=== PATIENT | male | born 1930 | race Hispanic/Latino ===

== ENCOUNTER 2017-04-08 18:29 | Emergency (ER) | payer MEDICARE, BC ==
[2017-04-08 18:55] LABS: #Basophils 0.1 thou/uL (0.0-0.2); #Eosinphils 0.1 thou/uL (0.0-0.7); #Lymphocytes 2.7 thou/uL (1.20-3.40); #Monocytes 0.6 thou/uL (0.11-0.59); #Neutrophils 3.4 thou/uL (1.40-6.50); %Basophils 0.9 % (0.0-1.0); %Eosinophils 1.7 % (0.0-10.0); %Lymphocytes 39.2 % (21.0-51.0); %Monocytes 8.3 % (0.0-10.0); %Neutrophils 49.9 % (42.0-75.0); Mean Corpuscular HGB CONC 33.9 g/dL (32.0-36.0); Mean Corpuscular Hemoglobin 34.6 pg (27.0-31.0); Mean Platelet Volume 6.6 fL (7.4-10.4); Platelet Count 208 thou/uL (130-400); RBC Distribution Width 11.3 % (11.5-14.5); Red Blood Cell (RBC) Count 4.05 mill/uL (4.70-6.10); White Blood Cell (WBC) Count 6.8 thou/uL (4.8-10.8)
[2017-04-08 19:18] LABS: ALT (SGPT) 17 U/L (8-55); AST (SGOT) 23 U/L (5-34); Alkaline Phosphatase 80 U/L (40-150); Anion Gap 13 mmol/L (10-20); BUN (Urea Nitrogen) 16 mg/dL (8.4-25.7); Bilirubin, Total 0.3 mg/dL (0.2-1.2); CK (CPK) 116 U/L (30-200); Calc. Creatinine Clearance 0 mL/min (70-130); Calcium 9.5 mg/dL (7.8-10.44); Carbon Dioxide 29 mmol/L (23-31); Chloride 100 mmol/L (98-107); Estimated GFR-MDRD 89; Globulin 3.6 g/dL (2.4-3.5); Glucose 98 mg/dL (83-110); Potassium 3.5 mmol/L (3.5-5.1); Protein, Total 7.6 g/dL (5.8-8.1); Sodium 138 mmol/L (136-145)
[2017-04-08 19:21] LABS: Troponin I 0.021 ng/mL (< 0.028)
--- NOTE | 2017-04-08 19:25 | RAD ---
CHEST ONE VIEW: 04/08/17 HISTORY: Chest pain and left arm pain. COMPARISON: 06/25/14 STUDY. Heart size is within normal limits. There are postop sternotomy changes. The lungs are clear of infil trates. Postoperative changes of the right shoulder are noted. IMPRESSION: No active intrathoracic disease. POS: [facility]
--- NOTE | 2017-05-09 18:41 | EKG ---
Test Reason : Blood Pressure : / mmHG Vent. Rate : 059 BPM Atrial Rate : 059 BPM P-R Int : 154 ms QRS Dur : 092 ms QT Int : 406 ms P-R-T Axes : 020 000 083 degrees QTc Int : 401 ms Sinus bradycardia with marked sinus arrhythmia Inferior infarct , age undetermined Abnormal ECG Confirmed by BRETT ANDREA, VANESSA ([id number]), film and video editor FANNIE FOWLER ([id number]) on 05/09/2017 6:40:18 PM Referred By: Confirmed By:VANESSA WEST MD
== END 2017-04-08 19:51 | disposition home or self-care (01) ==
LOC: ERS 18:29
DX: M54.12 Radiculopathy, cervical region (principal); I25.2 Old myocardial infarction; E78.5 Hyperlipidemia, unspecified; I10 Essential (primary) hypertension; Z86.73 Personal history of transient ischemic attack (TIA), and cerebral infarction without residual deficits; Z87.891 Personal history of nicotine dependence; Z85.46 Personal history of malignant neoplasm of prostate; Z79.899 Other long term (current) drug therapy; Z79.82 Long term (current) use of aspirin
CPT/HCPCS: 71010; 80053; 82550; 82553; 84484; 85025; 93005; 94760

== ENCOUNTER 2017-06-12 16:35 | Observation (INO) | payer MEDICARE, BC ==
[2017-06-12 16:59] LABS: #Basophils 0.1 thou/uL (0.0-0.2); #Eosinphils 0.2 thou/uL (0.0-0.7); #Lymphocytes 2.3 thou/uL (1.20-3.40); #Monocytes 0.7 thou/uL (0.11-0.59); #Neutrophils 3.4 thou/uL (1.40-6.50); %Basophils 0.8 % (0.0-1.0); %Eosinophils 2.3 % (0.0-10.0); %Lymphocytes 34.6 % (21.0-51.0); %Monocytes 10.2 % (0.0-10.0); %Neutrophils 52.1 % (42.0-75.0); Mean Corpuscular HGB CONC 34.4 g/dL (32.0-36.0); Mean Corpuscular Hemoglobin 34.4 pg (27.0-31.0); Mean Platelet Volume 6.5 fL (7.4-10.4); Platelet Count 222 thou/uL (130-400); RBC Distribution Width 11.5 % (11.5-14.5); Red Blood Cell (RBC) Count 4.07 mill/uL (4.70-6.10); White Blood Cell (WBC) Count 6.6 thou/uL (4.8-10.8)
[2017-06-12] MEDS ORDERED: Nitroglycerin 2% Ointment 1 INCH/1 GM Packet ONE (17:04)
[2017-06-12 17:18] LABS: ALT (SGPT) 15 U/L (8-55); AST (SGOT) 20 U/L (5-34); Albumin 3.8 g/dL (3.4-4.8); Alkaline Phosphatase 88 U/L (40-150); Anion Gap 10 mmol/L (10-20); BUN (Urea Nitrogen) 16 mg/dL (8.4-25.7); Bilirubin, Total 0.4 mg/dL (0.2-1.2); CK (CPK) 135 U/L (30-200); Calc. Creatinine Clearance 0 mL/min (70-130); Carbon Dioxide 28 mmol/L (23-31); Chloride 103 mmol/L (98-107); Estimated GFR-MDRD 73; Globulin 3.4 g/dL (2.4-3.5); Glucose 108 mg/dL (83-110); Lipase 26 U/L (8-78); Potassium 4.1 mmol/L (3.5-5.1); Protein, Total 7.2 g/dL (5.8-8.1); Sodium 137 mmol/L (136-145)
[2017-06-12 17:21] LABS: CKMB 4.1 ng/mL (0-6.6); Troponin I 0.012 ng/mL (< 0.028)
--- NOTE | 2017-06-12 17:43 | RAD ---
PORTABLE FRONTAL CHEST RADIOGRAPH 06/12/17 COMPARISON: 04/08/17 HISTORY: Intermittent substernal chest pain. FINDINGS: The patient is status post midline sternotomy/CABG. There is no pneumothorax or pleural fluid. No focal consolidation or alveolar edema. IMPRESSION: Stable appearance of the chest - no acute findings. POS: [facility]
[2017-06-12] MEDS ORDERED: Acetaminophen 325 MG TAB PO PRN (19:05)
--- NOTE | 2017-06-12 19:05 | PDOC.EVN ---
Event Note - Event Note Event Note: [id number] H&P DICTATED 1. Chest pain 2. HTN 3. HPL 4. H/O CAD plan see orders
[2017-06-12] MEDS ORDERED: Sodium Chloride 0.9% 1,000 ML IV SCH (19:15)
[2017-06-12 20:28] LABS: Troponin I Less than 0.010 ng/mL (< 0.028)
[2017-06-12 21:10] VITALS: BMI 24.3
[2017-06-12] MEDS: Nitroglycerin 2% Ointment 1 INCH/1 GM Packet TOP SCH (22:32)
[2017-06-12 23:34] LABS: Troponin I 0.013 ng/mL (< 0.028)
--- NOTE | 2017-06-13 00:31 | HP ---
DATE OF ADMISSION: 06/12/2017 CHIEF COMPLAINT: Chest pain. HISTORY OF PRESENT ILLNESS: The patient is an 86-year-old male with past medical history of hypertension, hyperlipidemia, coronary artery disease, now came to the ER complaining of chest pain. The patient is having chest pain on and off for past several months, but did not see any asic verification engineer. The patient in the past seen by a asic verification engineer, but not seeing anyone recently. Chest pain persisted today, so he came to ER. The chest pain radiated to the left shoulder and also to the left scapular region and to the neck, moderate in intensity, spasm kind of pain. Currently, pain resolved. Denies any fever, denies any chills, denies any sweating, denies nausea, denies vomiting. Denies palpitations with the chest pain. PAST MEDICAL HISTORY: As per HPI. PAST SURGICAL HISTORY: CABG 20 years ago. SOCIAL HISTORY: Denies smoking, denies alcohol, denies any drugs. FAMILY HISTORY: Denies any heart problems. MEDICATIONS: Reviewed. REVIEW OF SYSTEMS: Constitutional: Denies any fever, denies any chills. Eyes : Denies any vision problems. Ears: Denies any hearing loss. Neck: Denies any neck pain. Cardiovascular system: Positive for chest pain. Respiratory system: Denies any cough. Denies sputum production. Gastrointestinal: Denies nausea, vomiting. Genitourinary: Denies dysuria. Musculoskeletal: Denies any joint deformities. All other review of systems are reviewed and are negative. PHYSICAL EXAMINATION: CONSTITUTIONAL/VITAL SIGNS: At the time of H&P performed, blood pressure is 134 /69, temp afebrile, pulse ox 95%, heart rate 54 GENERAL APPEARANCE: The patient appears comfortable. HEENT: Pupils are equal, round, and reactive to light. Anterior nares patent. Nose normal. Ears normal. Teeth intact. Tongue is moist. NECK: Supple, no JVD. CARDIOVASCULAR SYSTEM: S1, S2 present. Regular rate and rhythm. No murmurs, no rubs, no gallops. RESPIRATORY SYSTEM: No wheezing, no rhonchi. Breath sounds bilaterally. GASTROINTESTINAL: Abdomen is soft, nontender, no guarding, no organomegaly, no masses felt. MUSCULOSKELETAL: No edema. CRANIAL NERVE SYSTEM: Cranial nerves intact. Follows command. Strength intact , sensory intact. PSYCHIATRIC: Mood is appropriate at this time. INTEGUMENTARY: No obvious rash seen. LABORATORY DATA: At the time of H&P performed, white count 6.7, hemoglobin 14, platelet count is 222. BMP showed sodium 137, potassium 4.1, chloride 103, CO2 of 28, BUN 16, creatinine 0.98. BNP 138.8. ASSESSMENT AND PLAN: The patient is an 86-year-old male. 1. Chest pain, need to rule out cardiac etiology. EKG showed sinus bradycardia with some PACs. Plan to monitor the patient closely. Plan to check serial cardiac enzymes. Plan to check 2D echo. Plan to consult Cardiology to evaluate the patient. Plan to keep the patient n.p.o. after midnight. 2. History of hypertension. Monitor blood pressures. Continue home blood pressure medications. 3. History of hyperlipidemia. Continue statin. 4. History of coronary artery disease. Continue aspirin. The case was discussed in detail with the patient and patient's daughter also. KRYSTINA
[2017-06-13 05:08] LABS: Cardiac Risk 4.5 (Less than 4.5)
[2017-06-13 05:10] LABS: Troponin I 0.012 ng/mL (< 0.028)
[2017-06-13] MEDS: Nitroglycerin 2% Ointment 1 INCH/1 GM Packet TOP SCH (05:15)
[2017-06-13 07:53] VITALS: BP 137/63; TEMP 98.3
[2017-06-13] MEDS ORDERED: Aspirin 325 MG TAB PO SCH (08:00)
[2017-06-13] MEDS ORDERED: Lisinopril 5 MG TAB PO SCH (09:00)
[2017-06-13] MEDS ORDERED: Clopidogrel Bisulfate 75 MG TAB PO SCH (09:00)
--- NOTE | 2017-06-13 09:28 | CON ---
DATE OF CONSULTATION: 06/13/2017 CARDIOLOGY CONSULTATION INDICATION FOR CONSULTATION: An 86-year-old patient with history of known coronary artery disease, melissa farah post bypass surgery with complaints of chest discomfort. HISTORY OF PRESENT ILLNESS: This is a very unfortunate now 86-year-old patient who has had bypass griffith rgery several years ago. More than 20 years ago, he had bypass surgery with a MONTES DE OCA to left anterior descending artery, saphenous vein graft to the right coronary artery, diagonal of first obtuse margin al branch of left circumflex. In 2004, he had cardiac catheterization which showed severe upper mattaponi ves kalyani disease. He again had repeat cardiac catheterization in 2014, which again showed a severe three- vessel coronary artery disease of the upper mattaponi vessels, but he had patent saphenous vein graft. He had a MONTES DE OCA to left anterior descending artery which also had remained patent. He has been doing relativ dave well, but has not been followed up by Cardiology. He had negative stress test last year and card iac catheterization in 2014 which showed that his grafts had some mild disease, but no flow-limited d isease was noted. At this time, he has been complaining of various types of chest pain in various ar eas of the chest. He presented to the hospital. He actually stays he is pretty active and does not get chest pain while he is active. He said he just kind of those ignores it and does not have any si gnificant problems. When he is resting and sitting at home, he occasionally has some chest discomfor t. He does take a nitroglycerin which did not relieve his discomfort. Sometimes, he will take Aleve at night and this does resolve some of his pain. His EKG is unremarkable for any acute changes. 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 His cardiac enzym es are negative for myocardial infarction. At this time, he is stable. He denies any symptoms of ch est pain at this time. He is very pleasant. He is awake and oriented and wondering when he can eat and when he can go home. He has had no other significant problems. His vital signs have remained st able and he has no significant complaints. He does have a history of hypertension, hypercholesterole rosio, but no diabetes. He stopped smoking about 45 years ago. FAMILY HISTORY: Unremarkable for any early heart disease. PAST MEDICAL HISTORY: Significant for coronary artery disease as well as bypass surgery, history of hypertension, hypercholesterolemia, has had a history of prostate cancer and CVA in the past. He had a history of carotid artery disease. ALLERGIES: None. MEDICATIONS: Please refer to his list of medications already dictated by the previous history and ph ysical. These have been reviewed. At this time, he is on aspirin, Tylenol, atorvastatin, Plavix, li sinopril, metoprolol, nitroglycerin as needed, and Protonix. REVIEW OF SYSTEMS: A 12 point review of systems unremarkable which was noted in the history of prese nt illness. He still remains relatively active. 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 PHYSICAL EXAMINATION: GENERAL: Reveals a well-developed and well-nourished gentleman who is in no acute distress. He is a lert and oriented. VITAL SIGNS: Stable. Blood pressure is 137/63, heart rate is 57 and regular, respiratory rate is 18 . He is afebrile. O2 saturations are 94%. GENERAL: Otherwise reveals a well-developed and well-nourished gentleman, in no acute distress. HEENT: Shows head to be normocephalic, atraumatic. Carotid pulses are present. There were no bruit s. I cannot hear any significant bruits in the carotids. CHEST: Clear to auscultation. CARDIOVASCULAR: Exam reveals a regular rate and rhythm with normal S1, S2. There is no S3, S4. The re were no significant murmurs, heaves, thrills, bruits or rubs noted. CHEST: Has a well-healed midline surgical incision after median sternotomy. ABDOMEN: Soft and nontender. Positive bowel sounds are present. EXTREMITIES: Show no clubbing, cyanosis or edema. Pedal pulses are present. SKIN: Warm and dry. NEUROLOGIC: Patient is appropriate with mood and affect. He has normal strength and tone. IMAGING DATA: Atypical chest discomfort which most likely is musculoskeletal. He has no significant EKG changes. Enzymes are negative. He had a negative stress test last year. He had a cardiac cath eterization in 2014, which did not show any acute changes. Cardiac catheterization showed all 3 reed ve arteries were completely occluded with saphenous vein graft to a diagonal branch and obtuse margin al branch into the right coronary artery with only a 50% stenosis in the right coronary artery graft and distal stenosis in the upper mattaponi right coronary, about 50% in the posterior lateral branch with retr ograde filling from the diagonal branch to the distal right coronary artery with a patent MONTES DE OCA to the left anterior descending artery and a well preserved left ventricular systolic function. At this ti me, I believe he is stable. I would continue his medications at home. He can follow up as on outpat ient basis. I did suggest to him at least to see field health officer at least once a year. He has been fol lowed previously by Brock. We will be more than happy to continue to follow the patient if he will be compliant with his followups. IMPRESSION: 1. Coronary artery disease, which appears to be stable. 2. Status post bypass surgery, which also appears to be stable. 3. Hypertension, which is stable. 4. Hypercholesterolemia, which is stable. 5. Atypical chest discomfort which most likely is musculoskeletal.
--- NOTE | 2017-06-13 13:46 | DIS ---
DATE OF ADMISSION: 06/12/2017 DATE OF DISCHARGE: 06/13/2017 CONDITION AT THE TIME OF DISCHARGE: Stable and improved. DISCHARGE DISPOSITION: Home. PRIMARY CARE PHYSICIAN: Dr. Corrigan. PRIMARY ASSOCIATE MATERIAL HANDLER: Dr. Stephenson. DISCHARGE DIAGNOSES: 1. Chest pain, noncardiac, resolved. 2. History of coronary artery disease. 3. Hypertension. 4. Dyslipidemia. 5. History of prostate cancer. 6. History of coronary artery bypass grafting. DISCHARGE MEDICATIONS: Remain the same as admission medication. Please consult H&P dictated yesterd ay by my colleagues. CONSULTATIONS: Cardiology, Dr. Stephenson. PROCEDURES DONE IN THE HOSPITAL: Chest x-ray, which is unremarkable. HISTORY OF PRESENTING ILLNESS: Mr. Pacheco is an 86-year-old very pleasant male with history of coronary artery disease, who came into the emergency room with complaints of chest pain starting i n the left side going to his left shoulder, neck ,and his arm. He was hemodynamically stable upon pr esentation. His cardiac enzymes were negative. EKG was unremarkable. He did have some sinus bradyc ardia on the EKG with some PACs. He was admitted for further evaluation and ACS rule out. Please se e admission history and physical dictated by Dr. Giraldo. HOSPITAL COURSE: The patient remained hemodynamically stable and asymptomatic throughout the rest of his hospitalization. His cardiac enzymes were trended and were negative x4. His lipid panel was ch ecked and was unremarkable. His vital signs remained stable. He was restarted on his home medicatio ns, which he tolerated very well. He was seen by dog walker, Dr. Stephenson, who has seen him in the past. At this time, her recommendatio ns were to continue with the current cardiac medication and follow up with her as an outpatient. The patient was instructed about this and is more than happy to follow up. He tells me that he is still working and is staying very active. He does not drink or smoke and is very conscious about what he eats. He actually appears much younger than his stated age. At the time of discharge, he is hemodynamically stable. He has been seen and examined by myself. PHYSICAL EXAMINATION: VITAL SIGNS: Temperature 98.3, pulse of 57, respirations 18, saturating 94% on room air, and blood p ressure 137/63. GENERAL: No acute distress, awake, alert, oriented x3. CHEST: Clear to auscultation without any wheezing, rales, or rhonchi. Rate and rhythm is regular wi thout any murmur, rubs, or gallops. EXTREMITIES: Free of any cyanosis, clubbing, or edema. LABORATORY DATA: Troponin 0.012, then 0.010, then 0.013, and repeat troponin 0.012. BNP 138, trigly ceride 106, cholesterol 188, LDL 125, and HDL 42. Discharge plan was discussed with the patient and medications were reconciled. He verbalized underst anding. All questions were answered.
--- NOTE | 2017-06-13 15:37 | EKG ---
Test Reason : Blood Pressure : / mmHG Vent. Rate : 059 BPM Atrial Rate : 059 BPM P-R Int : 152 ms QRS Dur : 092 ms QT Int : 410 ms P-R-T Axes : 045 012 071 degrees QTc Int : 405 ms Sinus bradycardia with marked sinus arrhythmia Inferior infarct , age undetermined Abnormal ECG Confirmed by FELIPE ANDREA, LEANNE Peña ([id number]), editorial writer CHETAN LAINEZ ([id number]) on 06/13/2017 3:37:33 PM Referred By: Confirmed By:LEANNE WANG MD
[2017-06-13] MEDS ORDERED: Atorvastatin Calcium 20 MG TAB PO SCH (21:00)
== END 2017-06-13 10:49 | disposition home or self-care (01) ==
LOC: ERS 16:35 → 2SW 18:00
PROVIDERS: ADMIT Internal Medicine; ATTEND Internal Medicine
DX: R07.89 Other chest pain (principal); I25.10 Atherosclerotic heart disease of native coronary artery without angina pectoris; I10 Essential (primary) hypertension; E78.5 Hyperlipidemia, unspecified; Z79.02 Long term (current) use of antithrombotics/antiplatelets; Z79.82 Long term (current) use of aspirin; Z79.899 Other long term (current) drug therapy; Z95.1 Presence of aortocoronary bypass graft; Z85.46 Personal history of malignant neoplasm of prostate; Z86.73 Personal history of transient ischemic attack (TIA), and cerebral infarction without residual deficits
CPT/HCPCS: 71045; 80053; 80061; 82550; 82553; 83690; 83880; 84484 ×3; 85025; 93005; 93306; 94760 ×3; 99285; G0378; 36415

== ENCOUNTER 2018-02-13 10:32 | Observation (INO) | payer MEDICARE, BC ==
[2018-02-13 10:51] LABS: #Basophils 0.1 thou/uL (0.0-0.2); #Eosinphils 0.1 thou/uL (0.0-0.7); #Lymphocytes 2.3 thou/uL (1.20-3.40); #Monocytes 0.4 thou/uL (0.11-0.59); #Neutrophils 2.9 thou/uL (1.40-6.50); %Basophils 1.3 % (0.0-1.0); %Eosinophils 1.2 % (0.0-10.0); %Lymphocytes 39.4 % (21.0-51.0); %Monocytes 7.6 % (0.0-10.0); %Neutrophils 50.5 % (42.0-75.0); Hemoglobin 13.9 g/dL (14.0-18.0); Mean Corpuscular HGB CONC 33.1 g/dL (32.0-36.0); Platelet Count 210 thou/uL (130-400); RBC Distribution Width 11.5 % (11.5-14.5); White Blood Cell (WBC) Count 5.7 thou/uL (4.8-10.8)
[2018-02-13 11:23] LABS: ALT (SGPT) 14 U/L (8-55); AST (SGOT) 21 U/L (5-34); Albumin 3.9 g/dL (3.4-4.8); Alkaline Phosphatase 80 U/L (40-150); Anion Gap 13 mmol/L (10-20); BUN (Urea Nitrogen) 15 mg/dL (8.4-25.7); Bilirubin, Total 0.5 mg/dL (0.2-1.2); CK (CPK) 133 U/L (30-200); Calc. Creatinine Clearance 0 mL/min (70-130); Carbon Dioxide 25 mmol/L (23-31); Chloride 105 mmol/L (98-107); Estimated GFR-MDRD Greater than 90; Globulin 3.3 g/dL (2.4-3.5); Glucose 118 mg/dL (83-110); Lipase 16 U/L (8-78); Potassium 3.8 mmol/L (3.5-5.1); Protein, Total 7.2 g/dL (5.8-8.1); Sodium 139 mmol/L (136-145)
[2018-02-13 11:26] LABS: CKMB 4.5 ng/mL (0-6.6); Troponin I Less than 0.010 ng/mL (< 0.028)
--- NOTE | 2018-02-13 13:09 | RAD ---
PORTABLE CHEST: HISTORY: Chest pain. COMPARISON: 06/12/2017 study. FINDINGS: Heart size is within normal limits. There are postop sternotomy changes. The lungs are clear of any infiltrative process. There are no signs of failure. IMPRESSION: No active intrathoracic disease. POS: [facility]
[2018-02-13 14:32] LABS: Troponin I Less than 0.010 ng/mL (< 0.028)
[2018-02-13 15:23] VITALS: BMI 24.7
[2018-02-13] MEDS ORDERED: Ondansetron ODT 4 MG TAB PO PRN (15:34)
[2018-02-13] MEDS ORDERED: Acetaminophen 325 MG TAB PO PRN (15:34)
[2018-02-13] MEDS ORDERED: Ondansetron PF 4 MG/2 ML Vial IVP PRN (15:34)
[2018-02-13 17:06] LABS: Troponin I Less than 0.010 ng/mL (< 0.028)
--- NOTE | 2018-02-13 17:50 | HP ---
DATE OF ADMISSION: 02/13/2018 PRIMARY CARE PHYSICIAN: Tyler Corrigan M.D. PRIMARY SENIOR C DEVELOPER: Davida Stephenson M.D. CHIEF COMPLAINT: Chest pain. HISTORY OF PRESENT ILLNESS: Mr. Pacheco is a pleasant 87-year-old male who has a past medical history of hypertension, hyperlipidemia and coronary artery disease with a history of CABG 21 years ago and C VA 5 years ago, came to the ER today with some complaints of chest pain that has been going on for e last 3-4 days. He states the chest pain comes and goes on the left side of the chest; however, whe n he feels that he strains or when he twists his upper body, the pain radiates to the right side of h is chest. He states he has been doing more yard work around the house and also chores around the [facility] [place] when he first noticed pain about 3-4 days ago. He denies any shortness of breath, abdominal pain, nausea, vomiting or diarrhea. He denies any fever or chills or cough. He states usually the pain l asts throughout the day before bedtime, he will take an aspirin and some Aleve and his pain resolves to the point where he can get a good night's sleep. He reported 5/10 chest pain in the ER; however, when he was seen and examined by myself on the floor, he had no complaints of chest pain. He had muc h similar complaints back in June of this year, which he was admitted for chest pain, rule out, he u nderwent echocardiogram and stress test which were found to be unremarkable and was later discharged home to follow up with his PCP and extra gang supervisor. Upon arrival to the ER, his EKG showed sinus bradyc ardia with a rate of 53 and T-wave inversion in leads V1 and 2, Q-waves significant in lead 3 with AV F. These were findings seen on previous EKG, and he denies any further symptoms at this time. He wi ll be admitted under observation status for chest pain rule out. PAST MEDICAL HISTORY: Coronary artery disease, myocardial infarction, hyperlipidemia, hypertension, prostate cancer, CVA. PAST SURGICAL HISTORY: CABG 21 years ago, appendectomy. SOCIAL HISTORY: Denies smoking, alcohol or drug use. FAMILY HISTORY: Denies any family history of heart problems. HOME MEDICATIONS: 1. Aspirin 325 mg daily. 2. Simvastatin 40 mg at bedtime. 3. Clopidogrel 75 mg daily. 4. Metoprolol succinate 12.5 mg daily. 5. Lisinopril 5 mg oral daily. REVIEW OF SYSTEMS: CONSTITUTIONAL: Denies fever or chills. EYES: Denies any eye pain or vision changes. EARS: Denies hearing loss, ringing or muffled sound. NECK: Denies any neck pain, swelling. CARDIOVASCULAR: Positive for chest pain, no palpitations. RESPIRATORY: Denies cough, shortness of breath or wheezing. GASTROINTESTINAL: Denies nausea, vomiting, or abdominal pain. GENITOURINARY: Denies dysuria, frequency, urgency, or hematuria. MUSCULOSKELETAL: Denies any joint deformities, muscle pain or weakness. All other review of systems reviewed and are negative. ALLERGIES: No known drug allergies. PHYSICAL EXAMINATION: VITAL SIGNS: BP 165/76, pulse 48, respirations 16, temperature 97.7 degrees Fahrenheit, O2 saturatio ns 100% on room air. GENERAL APPEARANCE: Patient is awake, alert, and oriented x3 in no acute distress noted. HEENT: Pupils equal, round, and reactive to light. Extraocular muscles intact. Anterior nares peoples nt. No obstruction noted. Ears, normal hearing to conversation. Teeth intact. Moist mucous membra sammy. NECK: Supple, no JVD, no bruit. CARDIOVASCULAR: Positive S1, S2. Bradycardic on the monitor, normal rhythm. No murmurs, no rubs, n o gallops noted. RESPIRATORY: No wheezes, no rhonchi. Clear to auscultation bilaterally. GASTROINTESTINAL: Soft, nontender, nondistended, no guarding, no tenderness. MUSCULOSKELETAL: No edema. Reproducible chest pain on the left. Moves all extremities equally. St rength is 5+ bilaterally both upper and lower extremities. NEUROLOGIC: Cranial nerves II-XII intact. Follows commands. No focal deficit noted. Strength 5+ b ilaterally. Sensation is intact. PSYCHIATRIC: Normal mood and affect. SKIN: No rashes, no lesions, no bruising. LABORATORY DATA: WBC 5.7, RBC 4.1, hemoglobin 13.9, platelet 210. Sodium 139, potassium 3.8, creati nine 0.78, GFR greater than 90, glucose 118, AST 21, ALT 14. Troponin less than 0.010 x2. Lipase 16 . DIAGNOSTIC IMAGING: Chest x-ray showed no acute intrathoracic disease. ASSESSMENT AND PLAN: The patient is an 88-year-old male. 1. Chest pain, we will rule out cardiac etiology. EKG shows sinus bradycardia with T-wave inversion s and significant Q-waves; however, this was seen on previous EKG back in June, we will monitor the patient closely. Continue home medications including aspirin, Plavix, metoprolol, lisinopril, and Li pitor. We will check a stress test and echocardiogram. Pending workup results. May consult Cardiol ogy for further evaluation. 2. History of hypertension, monitor vital signs closely. Continue home blood pressure medications. 3. History of hyperlipidemia. Continue on statin therapy at this time. 4. History of coronary artery disease, continue aspirin, Plavix, refer to #1. 5. Gastrointestinal prophylaxis with Protonix. DISPOSITION AND PLAN: Pending patient's progress and workup.
[2018-02-13] MEDS ORDERED: Atorvastatin Calcium 20 MG TAB PO SCH (21:00)
[2018-02-14 05:11] LABS: #Eosinphils 0.1 thou/uL (0.0-0.7); #Lymphocytes 1.7 thou/uL (1.20-3.40); #Monocytes 0.5 thou/uL (0.11-0.59); #Neutrophils 2.8 thou/uL (1.40-6.50); %Basophils 0.4 % (0.0-1.0); %Eosinophils 2.2 % (0.0-10.0); %Lymphocytes 33.4 % (21.0-51.0); %Monocytes 9.7 % (0.0-10.0); %Neutrophils 54.4 % (42.0-75.0); Hemoglobin 13.4 g/dL (14.0-18.0); Mean Corpuscular Hemoglobin 33.7 pg (27.0-31.0); Mean Platelet Volume 7.4 fL (7.4-10.4); Platelet Count 211 thou/uL (130-400); RBC Distribution Width 11.6 % (11.5-14.5); Red Blood Cell (RBC) Count 3.98 mill/uL (4.70-6.10); White Blood Cell (WBC) Count 5.2 thou/uL (4.8-10.8)
[2018-02-14 05:22] LABS: Anion Gap 9 mmol/L (10-20); BUN (Urea Nitrogen) 13 mg/dL (8.4-25.7); Calc. Creatinine Clearance 68 mL/min (70-130); Calcium 8.8 mg/dL (7.8-10.44); Carbon Dioxide 29 mmol/L (23-31); Chloride 105 mmol/L (98-107); Estimated GFR-MDRD Greater than 90; Glucose 92 mg/dL (83-110); Sodium 139 mmol/L (136-145)
[2018-02-14] MEDS ORDERED: Aspirin 325 MG TAB PO SCH (09:00)
[2018-02-14] MEDS ORDERED: Clopidogrel Bisulfate 75 MG TAB PO SCH (09:00)
[2018-02-14] MEDS ORDERED: Lisinopril 5 MG TAB PO SCH (09:00)
[2018-02-14] MEDS ORDERED: ADENOSINE 60 MG/20 ML VIAL ONE (12:53)
[2018-02-14 13:46] VITALS: BP 165/76; TEMP 97.7
--- NOTE | 2018-02-14 14:23 | NM ---
CARDIAC SPECT: HISTORY: An 87-year-old male with chest pain, coronary artery disease, CABG, hypertension, and dyslipidemia. TECHNIQUE: A myocardial perfusion scan was performed using a single-isotope 1-day protocol with Technetium 99m s estamibi. Nine mCi were injected intravenously for the rest exam followed by 30 mCi for the stress s tudy. Pharmacologic stress with adenosine is monitored and interpreted by Gabby Kennedy PA-C. FINDINGS: There is a small fixed defect in the distal anteroseptal wall. No reversible defects are seen. GATED SPECT LVEF: 59%. WALL MOTION EXAM: No significnat wall motion abnormalities are identified. IMPRESSION: No evidence of reversible ischemia. POS: [facility]
--- NOTE | 2018-02-14 17:04 | DIS ---
DATE OF ADMISSION: 02/13/2018 DATE OF DISCHARGE: 02/14/2018 DISCHARGE DIAGNOSES: 1. Chest pain, noncardiac, resolved. 2. Hypertension, stable. 3. History of hyperlipidemia, stable. 4. History of coronary artery disease, stable. CONSULTATIONS: None. PERTINENT LABORATORY DATA: WBC 5.2, RBC 3.98, hemoglobin 13.4, hematocrit 40.7, platelet 211. Sodiu m 139, potassium 4.0, BUN 13, creatinine 0.76, GFR greater than 90, glucose 92, AST 21, ALT 14, alkal ine phosphatase 80, creatine kinase 133, CK-MB 4.5, troponin less than 0.010 x3. Lipase 16. DIAGNOSTIC IMAGING: Portable chest x-ray showed no acute intrathoracic disease. Stress test showed no evidence of reversible ischemia, no significant wall motion abnormalities. Ech ocardiogram showed left ventricular ejection fraction of 50%-55%. HOSPITAL COURSE: Mr. Pacheco was a pleasant 87-year-old male who had presented to the ER with some com plaints of left-sided chest pain. Upon admission, his serial troponins were found to be less than 0. 010 x3. Chest x-ray was unremarkable. He was ultimately brought in for chest pain rule out, he then underwent an echocardiogram which showed an EF of 50%-55%. Stress test showed no wall motion abnorm alities with no evidence of reversible ischemia. During hospital course, vital signs remained stable . His left-sided chest pain resolved with continuing his normal home medications. He was seen and e xamined prior to discharge. He had denied any chest pain, shortness of breath or abdominal pain. Vi genesis signs remained stable, it was determined that his chest pain was noncardiac etiology. He was ins tructed to continue his home medications as directed and follow up with his PCP in 1-2 weeks. He als o indicated that he will follow up with Dr. Stephenson, his school cafeteria cook head, in 2-4 weeks. He was found to be medically stable for discharge home on 02/14/2018. DISCHARGE MEDICATIONS: 1. Aspirin 325 mg oral daily. 2. Simvastatin 40 mg oral at bedtime. 3. Clopidogrel 75 mg oral daily. 4. Metoprolol succinate 12.5 mg oral daily. 5. Lisinopril 5 mg oral daily. FOLLOWUP: The patient was instructed to follow up with his primary care physician, Dr. Richey in 1-2 weeks, he will also follow up with his school cafeteria cook head, Dr. Stephenson, in 2-4 weeks. CONDITION ON DISCHARGE: Stable. DIET: Cardiac diet. ACTIVITY: As tolerated. DISPOSITION: To home on 02/14/2018.
== END 2018-02-14 16:02 | disposition home or self-care (01) ==
LOC: ERS 10:32 → 2SW 13:26
PROVIDERS: ADMIT Internal Medicine Infectious Disease; ATTEND Internal Medicine Infectious Disease
DX: R07.89 Other chest pain (principal); I10 Essential (primary) hypertension; E78.5 Hyperlipidemia, unspecified; I25.10 Atherosclerotic heart disease of native coronary artery without angina pectoris; I25.2 Old myocardial infarction; Z86.73 Personal history of transient ischemic attack (TIA), and cerebral infarction without residual deficits; Z79.82 Long term (current) use of aspirin; Z79.02 Long term (current) use of antithrombotics/antiplatelets; Z79.899 Other long term (current) drug therapy; Z95.1 Presence of aortocoronary bypass graft
CPT/HCPCS: 71045; 78452; 80048; 80053; 82550; 82553; 83690; 84484 ×2; 85025 ×2; 93005; 93017; 93306; 99285; A9500; G0378 ×2; 36415; J0153

== ENCOUNTER 2018-03-18 00:56 | Observation (INO) | payer MEDICARE, BC ==
[2018-03-18] MEDS ORDERED: Nitroglycerin 2% Ointment 1 INCH/1 GM Packet ONE (01:50)
[2018-03-18 02:05] LABS: #Eosinphils 0.2 thou/uL (0.0-0.7); #Lymphocytes 2.1 thou/uL (1.20-3.40); #Monocytes 0.6 thou/uL (0.11-0.59); #Neutrophils 3.3 thou/uL (1.40-6.50); %Basophils 0.5 % (0.0-1.0); %Eosinophils 3.4 % (0.0-10.0); %Lymphocytes 33.6 % (21.0-51.0); %Monocytes 9.7 % (0.0-10.0); %Neutrophils 52.8 % (42.0-75.0); Hemoglobin 13.8 g/dL (14.0-18.0); Mean Corpuscular HGB CONC 34.8 g/dL (32.0-36.0); Mean Corpuscular Hemoglobin 35.2 pg (27.0-31.0); Mean Platelet Volume 7.1 fL (7.4-10.4); Platelet Count 218 thou/uL (130-400); RBC Distribution Width 11.5 % (11.5-14.5); Red Blood Cell (RBC) Count 3.93 mill/uL (4.70-6.10); White Blood Cell (WBC) Count 6.3 thou/uL (4.8-10.8)
[2018-03-18 02:24] LABS: ALT (SGPT) 20 U/L (8-55); AST (SGOT) 39 U/L (5-34); Albumin 3.6 g/dL (3.4-4.8); Alkaline Phosphatase 94 U/L (40-150); Anion Gap 11 mmol/L (10-20); BUN (Urea Nitrogen) 18 mg/dL (8.4-25.7); Bilirubin, Total 0.5 mg/dL (0.2-1.2); Calc. Creatinine Clearance 0 mL/min (70-130); Carbon Dioxide 26 mmol/L (23-31); Chloride 106 mmol/L (98-107); Estimated GFR-MDRD 83; Globulin 3.4 g/dL (2.4-3.5); Glucose 121 mg/dL (83-110); Lipase 24 U/L (8-78); Potassium 3.6 mmol/L (3.5-5.1); Sodium 139 mmol/L (136-145)
[2018-03-18] MEDS ORDERED: Morphine 2 MG/ML SYRINGE ONE (02:35)
[2018-03-18] MEDS ORDERED: Ondansetron PF 4 MG/2 ML Vial ONE (02:36)
[2018-03-18] MEDS ORDERED: Sodium Chloride 0.9% 1,000 ML IV SCH (05:15)
[2018-03-18] MEDS ORDERED: Morphine 4 MG/ML VIAL SLOW IVP PRN (05:15)
[2018-03-18] MEDS ORDERED: Ondansetron PF 4 MG/2 ML Vial IVP PRN (05:16)
[2018-03-18] MEDS ORDERED: Acetaminophen 325 MG TAB PO PRN (05:16)
[2018-03-18] MEDS ORDERED: Ondansetron ODT 4 MG TAB SL PRN (05:16)
[2018-03-18 06:28] VITALS: BMI 24.0
[2018-03-18 06:44] LABS: Troponin I Less than 0.010 ng/mL (< 0.028)
[2018-03-18] MEDS ORDERED: Prevnar 13-Val Conj/PF 0.5 ML SYRINGE IM ONE (06:45)
--- NOTE | 2018-03-18 07:54 | RAD ---
PORTABLE AP CHEST RADIOGRAPH: Date: 11-16-17 History: Left sided chest pain began approximately 1 hour prior to arrival. Comparison: 02-13-18 FINDINGS: Post-surgical changes related to CABG are noted. Cardiac silhouette and pulmonary vasculature are wit hin normal limits. The lungs remain clear. Post-surgical changes are again present involving each kapil ulder. There has been no interval change from prior study. IMPRESSION: Stable chest without evidence of an acute cardiopulmonary process. POS: [facility]
[2018-03-18 10:21] LABS: Troponin I Less than 0.010 ng/mL (< 0.028)
[2018-03-18] MEDS ORDERED: Iopamidol 370 76% 100 ML VIAL ONE (10:51)
[2018-03-18] MEDS ORDERED: HYDROcodone/Acetaminophen 5/325 mg Tablet PO PRN (14:51)
[2018-03-18] MEDS ORDERED: Sodium Chloride 0.9% 500 ML IV SCH (16:00)
[2018-03-18 16:19] VITALS: BP 142/65; TEMP 98.7
--- NOTE | 2018-03-18 18:12 | HP ---
PRIMARY CARE PHYSICIAN: Tyler Corrigan MD CHIEF COMPLAINT: Chest pain located in lower left chest, midaxillary line, woke him up from sleep. HISTORY OF PRESENT ILLNESS: Mr. Pacheco is a pleasant 87-year-old man, who reported to the emergency room this morning after he experienced some severe left lower chest pain, which woke him up from sleep. He denied any cough, any diaphoresis, any fever, or any palpitations. Denied any vomiting. Does report that the pain radiates to his back and his left arm. Denies any relief from anything in particular. Does have history of coronary artery disease, high cholesterol, and hypertension. The patient was admitted recently on 02/13/2018, for a similar complaint. We had an echocardiogram with an LVEF of 50% to 55%, E/A flow reversal suggestive of diastolic dysfunction, mildly dilated left atrium, moderate mitral regurgitation, and mild tricuspid regurgitation. The patient also had a stress test at that time, which showed no significant wall motion abnormalities and no evidence of reversible ischemia. The patient was discharged on 02/14/2018, with noncardiac chest pain. At that time, his troponins x3 were less than 0.010. He was not seen by a arts manager on that visit. Reports this pain today is somewhat similar, but woke him up from his sleep. Does report some tenderness to palpation, left lower rib cage. Based on his risk factors and complaint, the patient was admitted to the observation unit. The patient does have a history of a CABG 21 years ago and a CVA 5 years ago. PAST MEDICAL HISTORY: 1. Coronary artery disease. 2. Myocardial infarction. 3. Hyperlipidemia. 4. Hypertension. 5. Prostate cancer. 6. CVA. PAST SURGICAL HISTORY: 1. CABG 21 years ago. 2. Appendectomy. SOCIAL HISTORY: Denies smoking, alcohol, or drug use. FAMILY HISTORY: Denies any family history of heart problems. HOME MEDICATIONS: Include; 1. Aspirin 325 mg p.o. daily. 2. Plavix 75 mg p.o. daily. 3. Lisinopril 5 mg p.o. daily. 4. Toprol 12.5 mg daily. 5. Simvastatin 40 mg p.o. nightly. ALLERGIES: NONE. REVIEW OF SYSTEMS: CONSTITUTIONAL: The patient denies fevers or chills. He is alert and oriented. EYES: Denies any eye pain or vision changes. ENT: Denies any sore throat, earache, or rhinorrhea. CARDIOVASCULAR: Does report some chest pain, which radiates to the back and to the left arm. Denies any diaphoresis. Denies any palpitations. Denies any dyspnea on exertion. RESPIRATORY: Denies cough. Denies shortness of breath. GASTROINTESTINAL: Denies any abdominal pain, constipation, diarrhea, nausea, or vomiting. GENITOURINARY: Male. Denies any dysuria or hematuria. MUSCULOSKELETAL: Denies fall or injury. Reports some left-sided posterior back pain. Does report some anterior lateral rib pain in lower left side. SKIN: Denies any rash or skin changes. NEUROLOGIC: Denies any headache or any focal, sensory, or motor deficits. HEMOLYMPHATIC: Denies any abnormal blood clotting. PHYSICAL EXAMINATION: CONSTITUTIONAL: The patient is afebrile. The patient appears in no distress. VITAL SIGNS: Temperature is 97.8, pulse is 55, respirations are 18, blood pressure is 150/67, and the patient has 94% oxygen saturation on room air. HEAD: Atraumatic and normocephalic. EYES: Eyelids are normal to inspection. Pupils are equally round and reactive to light. Extraocular muscles are intact. No nystagmus. ENT: Mucous membranes are moist. Mouth exam is normal. NECK: Normal range of motion. Trachea is midline. No tenderness. RESPIRATORY/CHEST: No sign of respiratory distress. Breath sounds are clear. CARDIOVASCULAR: Normal rate and rhythm. S1 and S2. ABDOMEN: Male. Nontender. Bowel sounds are heard. No distentions. No peritoneal signs. BACK: Inspection is normal. Does have some left lateral pain on palpation over lower rib cage. EXTREMITIES: Upper extremity; normal inspection and range of motion. Pulse and sensations are intact bilaterally. Lower extremities; normal inspection. Normal range of motion. Motor strength is normal. Sensation and pulses are equal bilaterally. No pedal edema is noted. NEUROLOGIC: The patient is alert and oriented to person, place, and time. Speech is normal. SKIN: Warm, dry, and normal in color. PSYCHIATRIC: Normal affect. EKG INTERPRETATION: EKG in the ER shows normal sinus rhythm, T-waves in V1 and V2, inversions, which is similar to presentation in February 2018. LABORATORY DATA: White blood cell count 6.3, hemoglobin 13.8, hematocrit 39.8, and platelet counts are 218. Chemistry; sodium 139, potassium 3.6, gap is 11, BUN is 18, creatinine is 0.87, estimated GFR is 83, and glucose 121. Liver enzymes unremarkable. Troponin I x3 are less than 0.010. Lipase is 24. DIAGNOSTIC DATA: The patient had a chest x-ray, which showed a stable chest without evidence of any acute cardiopulmonary process. ASSESSMENT AND PLAN: 1. Chest pain, most likely musculoskeletal. Since this is the second time he has been in within the last month for similar complaints, we will consult Dr. Stephenson to see her input. 2. Hypertension. We will continue his home medication. 3. Hyperlipidemia. We will continue his home medication. 4. Anticoagulation. We will continue his aspirin and his Plavix. 5. Deep vein thrombosis and gastrointestinal prophylaxis will be started. 6. Hospital course will be depending on clinical findings. Job ID: [id number]
--- NOTE | 2018-03-18 20:24 | CT ---
CT THORAX WITH CONTRAST: 03/18/18 HISTORY: 83-year-old male with chest pain. COMPARISON: 06/25/14. FINDINGS: Tiny pulmonary nodule in the right middle lobe is stable and benign. No new suspicious pulmonary nodu les, pulmonary edema, consolidation, bronchiectasis, high grade emphysematous changes, pleural effusi on, or pneumothorax. Sternotomy wires and signs of previous CABG. No cardiomegaly or pericardial effu caryn. No mediastinal or hilar lymphadenopathy. Atherosclerosis of nonaneurysmal thoracic aorta. No ao rtic dissection. No mediastinal or hilar lymphadenopathy. No major interval change in the intrathorac ic contents since 2014. In the upper abdomen, inferior to the superior mesenteric artery, there is heavy atheromatous plaque, both calcified and noncalcified in the abdominal aorta. Calcified gallstone is noted. The previous C TA of the chest did not include these levels of the abdomen. There is a moderate sized parenchymal de fect at the lateral aspect of the right renal upper/mid pole consistent with scar from previous insul t. 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 IMPRESSION: 1)Evidence for coronary atherosclerotic disease, including status post coronary artery bypass graft s urgery. 2)Otherwise no evidence of active intrathoracic disease. 3)Right renal scar from prior insult, such as previous infarction or prior infection. 5)Heavy atheromatous plaque in the infrarenal abdominal aorta. 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 7)Cholelithiasis. MARISSA Jones POS: FLACA
[2018-03-18] MEDS ORDERED: Atorvastatin Calcium 20 MG TAB PO SCH (21:00)
--- NOTE | 2018-03-18 23:32 | CON ---
DATE OF CONSULTATION: 03/18/2018 TYPE OF CONSULTATION: Cardiology INDICATION FOR CONSULTATION: Chest pain. HISTORY OF PRESENT ILLNESS: This is an 87-year-old gentleman, who has a history of known coronary artery disease, who has had bypass surgery in the past. He awoken last night in the middle of the night, and he started complaining of pain. He presented to the emergency room. EKG is unremarkable. Cardiac enzymes are negative. He was recently here and he had a chest discomfort. He underwent stress test, and he was found to have a normal stress test. On evaluation, his pain is actually in the left lower anterolateral chest, and this is all musculoskeletal pain. He denies any anterior chest pain. He denied any pain down the arm. This also appears to be clearly a musculoskeletal problem. He has had an old inferior myocardial infarction in the past, and he has had similar admissions with a similar type chest discomfort. He did smoke in the past, but stopped about 45 years ago. PAST MEDICAL HISTORY: Significant for coronary artery disease, bypass surgery, hypertension, hypercholesterolemia, prostate cancer, CVA in the past. He has had a history of carotid artery disease. ALLERGIES: NONE. MEDICATIONS: Included, 1. Plavix. 2. Aspirin. 3. Lisinopril. 4. Simvastatin. 5. Metoprolol. REVIEW OF SYSTEMS: A 12-point review of systems is unremarkable, except what is noted in the history of present illness. PHYSICAL EXAMINATION: GENERAL: Reveals an elderly gentleman, who is in no acute distress at this time. He was asleep when I went into the room, and I had to awaken him just to do the history and physical. VITAL SIGNS: His blood pressure is 140/67, heart rate is 90 and regular, respiratory rate is 20. He is afebrile. HEENT: Shows the head to be normocephalic and atraumatic. NECK: Carotid pulses are present. There were no significant bruits noted. CHEST: Clear to auscultation. There were no rales, rhonchi, or wheezing. He does have pain to palpation over the left lower anterior chest area, but otherwise, no significant abnormalities were noted. CARDIOVASCULAR: Reveals a regular rate and rhythm. There were no significant murmurs, heaves, thrills, bruits, or rubs noted. ABDOMEN: Soft, flat, and nontender. Positive bowel sounds are present. EXTREMITIES: Showed no clubbing, cyanosis, or edema. Pedal pulses are present. NEUROLOGIC: The patient appears to be fully intact. He has normal strength and normal tone. SKIN: Warm and dry. LABORATORY DATA: Show a hemoglobin of 13.3. His troponin I's were all negative. Blood sugar was 121, potassium of 3.6, sodium was 139, and creatinine 0.87. IMAGING DATA: Chest x-ray also was unremarkable. IMPRESSION: Noncardiac chest pain in an elderly gentleman with a history of heart disease in the past, but no evidence at this time that he has any ischemia. We would continue to medically manage the patient with pain medications, and we will try to evaluate the etiology of the anterior chest wall pain. He says he has also actually lost some weight. He did not tell me exactly how much he had lost, but he has lost some weight. He may have some underlying malignancies that may have caused him some metastatic disease. He may need to undergo a CT scan to rule out evidence of metastatic disease if he continues to not have a clear etiology of the chest discomfort. His other problems include a history of transient ischemia attack in the past. This remains stable. He has had some left carotid artery stenosis in the past with some plaque. He has a history of hypertension. This is under reasonable control. This afternoon the BP was a little bit elevated. He has a history of dyslipidemia. I would continue his medications in the form of simvastatin for his hypercholesterolemia. Otherwise, from a cardiac standpoint, he is stable, and we will sign off the case. If he has any further problems, we will be more than happy to continue to follow the patient with you, but at this time, we will sign off. Job ID: [id number] [facility]
[2018-03-19] MEDS ORDERED: Aspirin 325 MG TAB PO SCH (09:00)
[2018-03-19] MEDS ORDERED: Lisinopril 5 MG TAB PO SCH (09:00)
[2018-03-19] MEDS ORDERED: Clopidogrel Bisulfate 75 MG TAB PO SCH (09:00)
--- NOTE | 2018-03-20 12:50 | EKG ---
Test Reason : CP Blood Pressure : / mmHG Vent. Rate : 060 BPM Atrial Rate : 060 BPM P-R Int : 164 ms QRS Dur : 088 ms QT Int : 432 ms P-R-T Axes : 059 011 071 degrees QTc Int : 432 ms Sinus rhythm with Premature atrial complexes T wave inversions in V1, V2, present on prior EKG from 02/13/2018 Confirmed by SONIA DU ([id number]), marketing editor CHETAN LAINEZ ([id number]) on 03/20/2018 12:50:11 PM Referred By: Confirmed By:SONIA DU
== END 2018-03-18 18:54 | disposition home or self-care (01) ==
LOC: ERS 00:56 → 2SW 02:36
PROVIDERS: ADMIT Hospitalist; ATTEND Hospitalist
DX: R07.89 Other chest pain (principal); I25.10 Atherosclerotic heart disease of native coronary artery without angina pectoris; I25.2 Old myocardial infarction; E78.5 Hyperlipidemia, unspecified; E78.00 Pure hypercholesterolemia, unspecified; I10 Essential (primary) hypertension; Z86.73 Personal history of transient ischemic attack (TIA), and cerebral infarction without residual deficits; Z79.02 Long term (current) use of antithrombotics/antiplatelets; Z79.82 Long term (current) use of aspirin; Z79.899 Other long term (current) drug therapy; Z95.1 Presence of aortocoronary bypass graft
CPT/HCPCS: 36415; 71045; 71260; 80053; 83690; 84484; 85025; 93005; 96374; 96375; J2270; J2405

== ENCOUNTER 2018-03-20 23:50 | Inpatient (IN) | payer MEDICARE, BC ==
[2018-03-21 01:16] LABS: ALT (SGPT) 156 U/L (8-55); AST (SGOT) 78 U/L (5-34); Albumin 3.5 g/dL (3.4-4.8); Alkaline Phosphatase 182 U/L (40-150); Anion Gap 15 mmol/L (10-20); BUN (Urea Nitrogen) 73 mg/dL (8.4-25.7); Bilirubin, Total 3.3 mg/dL (0.2-1.2); Calc. Creatinine Clearance 0 mL/min (70-130); Calcium 9.7 mg/dL (7.8-10.44); Carbon Dioxide 25 mmol/L (23-31); Chloride 101 mmol/L (98-107); Estimated GFR-MDRD 29; Globulin 4.2 g/dL (2.4-3.5); Glucose 131 mg/dL (83-110); Potassium 3.9 mmol/L (3.5-5.1); Protein, Total 7.7 g/dL (5.8-8.1); Sodium 137 mmol/L (136-145)
[2018-03-21 01:24] LABS: Band 34 % (5-11); Hemoglobin 15.3 g/dL (14.0-18.0); Lymphocytes 13 % (21-51); MDiff Complete? YES; Macrocytosis SLIGHT = 6-15 cells (100X) (0-5/hpf); Mean Corpuscular Hemoglobin 34.6 pg (27.0-31.0); Mean Platelet Volume 8.7 fL (7.4-10.4); Monocytes 1 % (0-10); Neutrophil 52 % (42-75); PLT Morphology Comment Appears Decreased; Platelet Count 96 thou/uL (130-400); RBC Distribution Width 12.2 % (11.5-14.5); Red Blood Cell (RBC) Count 4.42 mill/uL (4.70-6.10); Toxic Granulation SLIGHT
[2018-03-21 01:50] LABS: CKMB 17.6 ng/mL (0-6.6)
[2018-03-21] MEDS ORDERED: Aspirin 325 MG TAB ONE (02:21)
[2018-03-21] MEDS ORDERED: Enoxaparin Sodium 30 MG/0.3 ML SYRINGE ONE (02:31)
[2018-03-21] MEDS ORDERED: Enoxaparin Sodium 40 MG/0.4 ML SYRINGE ONE (02:31)
[2018-03-21] MEDS ORDERED: Ondansetron PF 4 MG/2 ML Vial IVP PRN (03:17)
[2018-03-21 04:04] LABS: Anion Gap 15 mmol/L (10-20); BUN (Urea Nitrogen) 73 mg/dL (8.4-25.7); Calc. Creatinine Clearance 0 mL/min (70-130); Calcium 8.5 mg/dL (7.8-10.44); Carbon Dioxide 20 mmol/L (23-31); Chloride 107 mmol/L (98-107); Estimated GFR-MDRD 31; Glucose 117 mg/dL (83-110); Potassium 4.8 mmol/L (3.5-5.1); Sodium 137 mmol/L (136-145)
[2018-03-21 04:18] LABS: Hemoglobin 12.6 g/dL (14.0-18.0); Mean Corpuscular HGB CONC 33.9 g/dL (32.0-36.0); Mean Corpuscular Hemoglobin 34.8 pg (27.0-31.0); Mean Platelet Volume 8.7 fL (7.4-10.4); Platelet Count 84 thou/uL (130-400); RBC Distribution Width 11.9 % (11.5-14.5); Red Blood Cell (RBC) Count 3.63 mill/uL (4.70-6.10); White Blood Cell (WBC) Count 13.8 thou/uL (4.8-10.8)
[2018-03-21 04:32] VITALS: BMI 24.0
[2018-03-21 04:55] LABS: Band 16 % (5-11); Eosinophils 1 % (0-10); Lymphocytes 3 % (21-51); MDiff Complete? YES; Metamyelocyte 2 % (0-0); Monocytes 4 % (0-10); Neutrophil 74 % (42-75); PLT Morphology Comment Appears Decreased
[2018-03-21] MEDS ORDERED: Prevnar 13-Val Conj/PF 0.5 ML SYRINGE IM ONE (05:00)
[2018-03-21 08:30] LABS: CKMB 8.1 ng/mL (0-6.6)
--- NOTE | 2018-03-21 08:32 | RAD ---
PORTABLE CHEST: DATE: 03/21/2018. PROVIDED CLINICAL HISTORY: Chest pain. FINDINGS: Comparison 03/18/2018. Cardiac and mediastinal silhouette is unchanged in appearance. Median sternot barbara changes and CAB changes are seen. External defibrillator pad overlies the right upper chest, lambert iting evaluation. No focal consolidation, pleural fluid, or pneumothorax apparent. IMPRESSION: No evidence for an acute cardiopulmonary process. POS: ANA
[2018-03-21] MEDS ORDERED: Lisinopril 10 MG TAB PO SCH (09:00)
[2018-03-21] MEDS: Aspirin 325 MG TAB PO SCH (09:41)
[2018-03-21] MEDS: Clopidogrel Bisulfate 75 MG TAB PO SCH (09:42)
[2018-03-21] MEDS ORDERED: Sodium Chloride 0.9% 1,000 ML IV SCH (12:15)
--- NOTE | 2018-03-21 14:11 | CON ---
DATE OF CONSULTATION: 03/21/2018 CARDIOLOGY CONSULT NOTE INDICATION FOR CONSULTATION: Chest pain, atrial flutter, and history of coronary artery disease. HISTORY OF PRESENT ILLNESS: This is a very unfortunate 87-year-old gentleman who lives with his son who was recently in the hospital due to chest discomfort. He has had several admissions for chest discomfort in the past. He underwent a cardiac catheterization actually in 2014 due to repeated episodes of chest pain. At that time, he was found to have three vessel coronary artery disease with total occlusion of the inupiat vessels, but has patent saphenous vein graft with a [place] OCA to the left anterior descending artery, saphenous vein graft to the right coronary artery, diagonal branch, and obtuse margin branch, all of which remained patent. He did have a mid 50% stenosis of the right coronary artery graft, but this remained patent. The inupiat posterolateral and PDA branches also have some stenosis, posterolateral branch of 50% in the mid section, and the posterior descending artery had less than 30% stenosis. Ejection fraction at that time was 50% to 55%. He was in the hospital about three days ago complaining of chest discomfort. He was seen at that time. He had a recent stress test also due to chest pain on February 14, 2018, which showed no evidence of ischemia and a normal ejection fraction. He does not typically follow up in the office. He has not been seen since he was in the hospital. He presented again last night to the emergency room having complaining of what he described to me as abdominal pain and he points to the lower abdominal area, is almost to the groin areas and he said this radiated up into the chest area. When he arrived in the emergency room, he was noted to be apparently in atrial flutter and received a shot for the atrial flutter. Since that time, he has remained stable and is in a sinus rhythm at this time. His cardiac enzymes were slightly elevated. However, he did have atrial flutter, which would not be unusual with tachycardia and a slight increase in the troponin I. His troponin Is at midnight last night was 0.207 and at 7 o'clock this morning is 0.216. No indication of a significant myocardial infarction. This would not be unusual in someone with tachycardia. His MBs also were slightly elevated around midnight, was 17.6 and this morning is down to 8.1. He denies any chest pain or symptoms at this time. He also appeared to be dehydrated with an increase in his BUN and creatinine ratio. His BUN was 73 with a creatinine of 2.16. On March 18, his BUN was 18 with a creatinine 0.87. The patient has apparently not been eating and drinking sufficiently at home. At this time, he remains stable from a cardiac standpoint. PAST MEDICAL HISTORY: Significant for coronary artery disease. He has had bypass surgery. He has had history of hypercholesterolemia, hypertension, and has history of prostate cancer. He had a CVA about 10 years ago and history of carotid artery disease, and has remained stable. ALLERGIES: NONE. MEDICATIONS: Prior to admission include; 1. Plavix. 2. Aspirin. 3. Lisinopril. 4. Simvastatin. 5. Metoprolol. REVIEW OF SYSTEMS: Twelve-point review of system is unremarkable, except what is noted in the history of present illness. PHYSICAL EXAMINATION: GENERAL: Reveals a well-developed, well-nourished gentleman, who is in no acute distress at this time. VITAL SIGNS: His blood pressure is 109/58, early was 94/46 and in the emergency room was even lower. Respiratory rate is 18, pulse is 80 and sinus at this time, and O2 saturation 100%. He is afebrile. HEENT: Shows the head to be normocephalic and atraumatic. Carotid pulses are present. I did not hear any bruits. There is no JVD. The thyroid is not enlarged. His oral mucosa is pink and moist. CHEST: Clear to auscultation without any rales, rhonchi, or wheezing. CARDIOVASCULAR: Reveals a regular rate and rhythm. There were no significant murmurs, heaves, thrills, bruits, or rubs noted. ABDOMINAL: Soft, flat, nontender. Positive bowel sounds are present. No tenderness is noted. No masses are noted. EXTREMITIES: Showed no clubbing, cyanosis, or edema. Pedal pulses are somewhat decreased and difficult to palpate, but I believe they are present. NEUROLOGIC: The patient appears to be fully intact. He has normal strength and tone for someone of his age. SKIN: Warm and dry. LABORATORY DATA: As noted above, shows abnormal cardiac enzymes. His MB this morning is 8.1. Troponin I is 0.216. Creatinine is 2.07, BUN of 73, carbon dioxide of 20, potassium is 3.5, blood sugar is 117. White blood cell count 13.8, hemoglobin 12.6, hematocrit 37.3, and a platelet count of 84,000. IMPRESSION: 1. Atrial flutter, which was cardioverted to a sinus rhythm last night in the emergency room, as the patient apparently had hypotension and rapid heart rate. He remained in sinus rhythm at this time. We will re-evaluate his medications. We will also suggest an EP consultation for this patient for possible ablation of the atrial flutter. We will continue the metoprolol, may increase the dose once the blood pressure tolerates this. 2. History of coronary artery disease. This actually appears to be stable at this time. He is not having any significant chest pain. His pain, he was very clear that was in the abdominal area, which radiated to the chest area, uncertain of the etiology of this discomfort. He has had multiple admissions for chest discomfort in the past. He has undergone cardiac catheterization in 2014 without any significant EKG changes to indicate ischemia, then I would not be very prone to proceed with cardiac catheterization in this gentleman, as I believe his symptoms may be related to the tachycardia associated with atrial flutter. 3. Hypertension. His blood pressure is under good control at this time. It is actually in the low side. 4. History of hyperlipidemia. He will continue his medications with his statin medications. He has been placed on atorvastatin at this time. We will continue this medication. 5. History of prostate cancer in the past. I did not know if he has had any recurrence with some of his aches and discomfort may be due to recurrence of the prostate cancer. He may need further evaluation. 6. Acute renal insufficiency, which appears to be due to dehydration. We will rehydrate the patient. Encourage fluids. Give him a liter of normal saline and then repeat the chemistries tomorrow morning. From my standpoint, the patient overall is stable and could be transferred from the CCU out to the Telemetry floor. Job ID: [id number]
[2018-03-21] MEDS ORDERED: Metoprolol Tartrate 5 MG/5 ML VIAL ONE ×2 (14:29)
[2018-03-21] MEDS ORDERED: Metoprolol Tartrate 5 MG/5 ML VIAL IVP PRN (14:29)
[2018-03-21] MEDS ORDERED: Diltiazem 125 MG in Sodium Chloride 0.9% 100 ML IVPB SCH (14:45)
[2018-03-21] MEDS: Piperacillin/Tazobactam 3.375 GM in Sodium Chloride 0.9% 100 ML IVPB SCH ×2 (15:07→20:33)
[2018-03-21 15:26] LABS: Anion Gap 15 mmol/L (10-20); BUN (Urea Nitrogen) 54 mg/dL (8.4-25.7); Calc. Creatinine Clearance 40 mL/min (70-130); Calcium 8.2 mg/dL (7.8-10.44); Carbon Dioxide 17 mmol/L (23-31); Chloride 109 mmol/L (98-107); Estimated GFR-MDRD 54; Glucose 116 mg/dL (83-110); Potassium 4.3 mmol/L (3.5-5.1); Sodium 137 mmol/L (136-145)
[2018-03-21 15:27] LABS: Hemoglobin 12.3 g/dL (14.0-18.0); Mean Corpuscular HGB CONC 32.7 g/dL (32.0-36.0); Mean Corpuscular Hemoglobin 33.1 pg (27.0-31.0); Mean Platelet Volume 8.8 fL (7.4-10.4); Platelet Count 72 thou/uL (130-400); RBC Distribution Width 12.1 % (11.5-14.5); Red Blood Cell (RBC) Count 3.73 mill/uL (4.70-6.10); White Blood Cell (WBC) Count 6.6 thou/uL (4.8-10.8)
[2018-03-21 15:29] LABS: Bilirubin Small (Negative); Blood, Urine Moderate (Negative); Clarity CLEAR (Clear); Glucose, Urine (Dipstick) Negative (Negative); Leukocyte Negative (Negative); Nitrite Negative (Negative); Protein, Urine (Dipstick) 100 mg/dL (Neg-Trace); Specific Gravity, Urine 1.018 (1.002-1.036)
[2018-03-21] MEDS ORDERED: Sodium Chloride 0.9% 500 ML IV SCH (15:30)
[2018-03-21 15:31] LABS: Hyaline Casts/LPF 0-3 HYALINE CAST LPF (0-3 Hyaline); Pathc Cast-AUWi Flag 0.29 (0-2.49); Squamous Epithelial 0-3 HPF (0-3); WBC/HPF 0-3 HPF (0-3); Yeast-AUWi Flag 75.5 (0-25.0)
[2018-03-21 15:41] LABS: Bacteria/HPF Rare-Few HPF (None Seen); RBC/HPF 0-3 HPF (0-3); Yeast-All Forms None Seen HPF (None Seen)
[2018-03-21] MEDS: Sodium Chloride 0.9% 1,000 ML IV SCH (15:45)
--- NOTE | 2018-03-21 15:49 | PRG ---
DATE OF SERVICE: 03/21/2018 SUBJECTIVE: The patient was seen and examined at bedside. He is feeling very cold. He is shivering. He just went into fast heart beat up to 180s. OBJECTIVE: VITAL SIGNS: His blood pressure is systolic in the 140s. His temperature is 98.1, respiratory rate is 20, and he is 98% on room air, but he is shivering when I am examining him continuously basically. LUNGS: His lungs are clear. HEART: S1, S2. Tachycardic, quite regular. No S3, no S4. ABDOMEN: Soft, nontender. EXTREMITIES: No clubbing, cyanosis, or edema. NEUROLOGICAL: He is not showing any focal deficits, and because of acuity of this situation with his heartbeat in the 180s, the examination is very limited. LABORATORY DATA: White count 13.8, hemoglobin 12.8, hematocrit 37.3, platelet count is 84, 16 bands, he had 34 bands on yesterday's CBC. Sodium of 137, potassium 4.8, chloride 107, CO2 of 20, BUN 37, creatinine 2.07, glucose 117. AST 78, ALT 156, alkaline phosphatase 182, . CK-MB 17.6, down to 8.1. His troponin I was 0.218, 0.216. IMPRESSION: 1. Recurrent supraventricular tachycardia, whether this is SVT or atrial flutter, it is difficult to say. The patient just received 2 mg of metoprolol IV push and he seems to be doing slightly better. His heartbeat is down to 160s. 2. Elevated white count with bands and shivering suggestive of some infectious process type of sepsis. We started him on Zosyn. Blood cultures were done in the emergency room. We will continue IV fluids. We will check his urine for possible source of sepsis. He might have prostatitis, so that is the plan for now and he is set up for EP studies tomorrow, but most likely this could not be postponed in view of possible sepsis. Job ID: [id number]
[2018-03-21 16:02] LABS: Band 17 % (5-11); Lymphocytes 13 % (21-51); MDiff Complete? YES; Monocytes 4 % (0-10); Neutrophil 66 % (42-75); PLT Morphology Comment Appears Decreased
[2018-03-21] MEDS ORDERED: Piperacillin/Tazobactam 3.375 GM in Sodium Chloride 0.9% 100 ML IVPB SCH (18:00)
--- NOTE | 2018-03-21 18:13 | CON ---
DATE OF CONSULTATION: 03/21/2018 SERVICE: Pulmonary Medicine. REASON FOR CONSULT: ICU patient. HISTORY OF PRESENT ILLNESS: The patient is an 87-year-old white male with past medical history significant for a recent presentation to the hospital on the 18 of March with chest pain. It woke him up from sleep. It was suggested that it was likely musculoskeletal. Ultimately, he was discharged to home after ruled out. When he was discharged home, he was not eating or drinking anything for a couple of days. He returned to the hospital with recurrent chest pain. This time, he was in an unstable atrial flutter. He had an acute kidney injury. He was kept in the ICU. He was found to be dehydrated, so he was given some IV fluids. Overnight, he converted back into a sinus rhythm. Currently, he is chest pain-free. He actually has a voracious appetite at this point. He is very hungry and looking forward to lunch. He denies any current fevers or chills. He has not been coughing or bringing up any sputum. He denies any dysuria, frequency, abdominal discomfort , or diarrhea. He has no hot, red, swollen joints or rashes. PAST MEDICAL HISTORY: 1. Coronary artery disease. 2. Dyslipidemia. 3. Hypertension. 4. History of prostate cancer. 5. History of CVA. PAST SURGICAL HISTORY: 1. Coronary artery bypass graft 21 years ago. 2. Appendectomy. SOCIAL HISTORY: Negative for alcohol, tobacco, or illicit drug use. He has no exposure to chemicals, dust, asbestos, or tuberculosis. FAMILY HISTORY: Noncontributory. ALLERGIES: NO KNOWN DRUG ALLERGIES. MEDICATIONS: List of his inpatient medications was reviewed. No specific updates were made at this time. REVIEW OF SYSTEMS: General, head, ears, eyes, nose, throat, cardiovascular, respiratory, GI, , musculoskeletal, neurologic, and skin are negative except as mentioned is the HPI. PHYSICAL EXAMINATION: VITAL SIGNS: Afebrile, pulse 75, blood pressure 109/58, respirations 20, and saturation 100% on room air. GENERAL: The patient is awake and alert, in no apparent distress. LUNGS: Excellent air entry. There is absolutely no prolonged expiratory phase, wheezing, rhonchi, or crackles present. HEART: Normal rate, regular. ABDOMEN: Soft, nontender, and nondistended. Bowel sounds are positive. MUSCULOSKELETAL: No cyanosis or clubbing. There is no pitting in the bilateral lower extremities. NEUROLOGIC: Grossly nonfocal. LABORATORY DATA: WBC 13.8, hemoglobin 12.6, platelets 84,000. Creatinine 2.07, which is gently downtrending. This is a significant increase compared to where we were 3 days ago. BUN 73. Basic metabolic profile is otherwise unremarkable. Troponins are gently downtrending to 0.216. CK-MB 8.1, BNP 330. IMAGING DATA: 1. CT of the chest demonstrates no evidence of cardiopulmonary abnormality. He has extensive atherosclerotic disease of many blood vessels throughout the belly. 2. His chest x-ray demonstrates no acute cardiopulmonary abnormality. ASSESSMENT: 1. Atrial flutter, returned to sinus rhythm. 2. Non-ST elevation myocardial infarction. 3. Dehydration. 4. Acute kidney injury, improving. DISCUSSION AND PLAN: I agree with hydration. The patient can be transitioned to the telemetry unit where we will continue to watch his saturations. Pulmonary Critical Care will continue to follow for the time being, but if he does not develop any respiratory issues by tomorrow, we will likely be signing off. 70 minutes have been devoted to this patient in various activities. I personally reviewed all imaging studies and laboratory data noted within this document. For fifty percent of this time, I was interacting with the patient at the bedside or coordinating care with the care team. For the remainder of the time I was immediately available to the patient in the hospital unit. Job ID: [id number] MTDD
[2018-03-21] MEDS: Vancomycin HCl 1 GM in Premix Bag 1 BAG IVPB SCH (20:33)
[2018-03-21] MEDS: Atorvastatin Calcium 20 MG TAB PO SCH (20:33)
--- NOTE | 2018-03-21 21:12 | HP ---
INSTRUMENT WORKER: Dr. Stephenson. PRIMARY CARE DOCTOR: Not reported. TIME OF EVALUATION: a.m. CHIEF COMPLAINT: Chest pain. CODE STATUS: Full code. HISTORY OF PRESENT ILLNESS: This is an 87-year-old old male patient with past medical history of coronary artery disease, status post CABG years ago, hyperlipidemia, and hypertension, came to the hospital after having chest pain that was severe in the middle of the chest. No clear triggers. No alleviating factors. Pain started when the patient was lying in the bed, the symptoms woke the patient up, associated with nausea. Symptoms were severe. He was found to be in atrial fibrillation with RVR with hypotension. For that reason, the patient was shocked and the patient has converted to normal sinus rhythm. Blood pressure is in low side, may be related to sedation for cardioversion, we will give some fluids, we will monitor the patient with a panel monitor. Placement will be depending on blood pressure after the second liter bolus. REVIEW OF SYSTEMS: CONSTITUTIONAL: No fever, chills, or generalized weakness. RESPIRATORY: No cough or sputum production. The patient did have shortness of breath. CARDIOVASCULAR: Chest pain associated with palpitations. GASTROINTESTINAL: The patient reported nausea. No vomiting, diarrhea, or abdominal pain. CONDEMNATION ENGINEER: No dizziness, headache, or feeling lightheaded. GENITOURINARY: No burning on urination. EXTREMITIES: No leg swelling. PAST MEDICAL HISTORY: As reported in the HPI. PAST SURGICAL HISTORY: Appendectomy, prostate , CABG x4. PSYCHIATRIC HISTORY: No previous psych history. SOCIAL HISTORY: No alcohol. No drugs. The patient is a former tobacco user, quit more than years ago. FAMILY HISTORY: Reviewed and noncontributory to current presentation. KNOWN ALLERGIES: No known drug allergies reported. MEDICATIONS: 1. Plavix. 2. Aspirin. 3. Lisinopril. 4. Simvastatin. 5. Metoprolol. PHYSICAL EXAMINATION: VITAL SIGNS: On initial presentation, his systolic was in the 70s with the heart rate in the 70s. After cardioversion, blood pressure has been stable in the 90s, but occasionally in the 80s. GENERAL APPEARANCE: The patient is alert and oriented, not in acute distress. HEENT: Eyes, normal conjunctivae. Moist oral mucosa. Anicteric. No JVD. RESPIRATORY: Bilateral air entry. No rales. No wheezing. Symmetric expansion. CARDIOVASCULAR: Normal rate. Regular rhythm. No murmurs. No gallops. No edema. ABDOMEN: Soft. Normal bowel sounds. Mildly tender. MUSCULOSKELETAL: Baseline range of motion and strength. SKIN: Warm and intact. No pallor. No rash. No redness. Peripheral pulses are present. Capillary refill seems to be intact. NEUROLOGIC: No evidence of any new focal weakness. Baseline speech. Cranial nerves seems to be intact. PSYCHIATRIC: The patient is in good mood. No anxiety. Oriented. Optimal judgement. DIAGNOSTIC DATA: EKG was reviewed and discussed with performing physician from ER. The patient had atrial flutter with variable AV block, under rate of 107, QRS 88, QT corrected 421. Another EKG was reviewed. The patient had atrial fibrillation with RVR at a rate of 137 and QRS 422. Chest x-ray was reviewed by myself, was reviewed with the performing physician from ER too. The patient had cardiomegaly and mildly increased markings bilaterally. No other significant abnormalities were seen. LABORATORY DATA: Labs were reviewed. The patient has white count of 8, hemoglobin 15, MCV 102, and platelet count 96. Chemistry: Sodium 137, potassium 3.9, chloride 101, carbon dioxide 25, anion gap 15, BUN 73; creatinine 2.16, the previous creatinine was 0.87 three days ago; the GFR was 29, glucose 131, calcium 9.7. Total bilirubin 3.3, AST 78, ALT 156, alkaline phosphatase 182. CK 275. Troponin 0.207. Beta natriuretic peptide 330. ASSESSMENT AND PLAN: The patient will be placed in the hospital with the following medical problems; 1. Hemodynamically unstable atrial flutter needing cardioversion, the patient has converted to normal sinus, blood pressure is in the lower side, could be related to sedation. The patient has acute kidney injury, could be on the dry side, dehydrated. The patient had received some fluid. We will monitor. Dr. Stephenson has been consulted, recommendations is to place the patient on tele. We will monitor and adjust treatment as needed. 2. History of coronary artery disease, troponin mildly elevated, could be secondary to [id number] myocardial infarction type 2 due to underlying arrhythmia. We will trend troponins, we will adjust treatment as needed. Unlikely to have acute coronary syndrome at this point; there is no evidence of acute coronary syndrome in the EKG either. 3. Hyperlipidemia, reconcile home medication. Continue simvastatin, low-cholesterol diet is advised. 4. History of hypertension. The patient has been hypotensive during admission. We will hold blood pressure medications for now. 5. We will reconcile once the patient is more stable. 6. Deep venous thrombosis prophylaxis. The patient received 1 dose of Lovenox in the ER. Job ID: [id number]
[2018-03-21] MEDS: traMADol HCl 50 MG TAB PO PRN (22:25)
[2018-03-22] MEDS: Acetaminophen 325 MG TAB PO PRN (03:17)
[2018-03-22] MEDS: Nitroglycerin 0.4 MG TAB (25 Tab Bottle) PO PRN ×4 (03:17→21:18)
[2018-03-22] MEDS: Piperacillin/Tazobactam 3.375 GM in Sodium Chloride 0.9% 100 ML IVPB SCH ×4 (03:17→19:58)
[2018-03-22 05:35] LABS: Anion Gap 12 mmol/L (10-20); BUN (Urea Nitrogen) 35 mg/dL (8.4-25.7); Calc. Creatinine Clearance 58 mL/min (70-130); Carbon Dioxide 18 mmol/L (23-31); Chloride 111 mmol/L (98-107); Estimated GFR-MDRD 82; Glucose 99 mg/dL (83-110); Magnesium 1.8 mg/dL (1.6-2.6); Potassium 3.4 mmol/L (3.5-5.1); Sodium 138 mmol/L (136-145)
[2018-03-22 05:42] LABS: Phosphorus 1.6 mg/dL (2.3-4.7)
[2018-03-22] MEDS: Sodium Chloride 0.9% 1,000 ML IV SCH ×2 (06:30→11:30)
--- NOTE | 2018-03-22 08:00 | PDOC.CTH ---
<Rosa Aguirre - Last Filed: 03/22/18 07:58> Cardiology Progress Note - Subjective The pt seen and examined. No overnight events. No cardiac complaints. He complains of ABD pain. He stated he has not had good BM since last Thursday. - Objective Vital Signs Temp Pulse Ox 03/22/18 04:00 98.4 F 03/22/18 00:00 98.0 F 03/21/18 20:00 98.7 F 99 Weight 156 lb 4.924 oz 03/21/18 03/22/18 03/23/18 06:59 06:59 06:59 Intake Total 3132 Output Total 200 950 Balance -200 2182 - Physical Examination General/Neuro: alert & oriented x3 Neck: no JVD present Lungs: CTA Heart: RRR Abdomen: soft Extremities: other: (No edema) - Telemetry Telemetry Rhythm: SR/SA 70-80s - Labs Result Diagrams: 03/21/18 14:59 03/22/18 04:30 Troponin/CKMB CK-MB (CK-2) 8.1 ng/mL (0-6.6) H* 03/21/18 07:19 Troponin I 0.216 ng/mL (< 0.028) H 03/21/18 07:19 - Assessment/Plan 1. New-onset Aflutter with RVR and S/p DCCV on 03/21/18 - remains in SR/SA; On Metoprolol 12.5mg qd; PAIGE?DS?-VASc Score is 7 (age, HTN, CHF, hx of CVA, Carotid artery disease). On ASA 325mg qd for now. EP consult. 2. CAD with hx of CABG and s/p LHC in 2014 with 50% stenosis in RCA, 50% in postlateral branch with EF 50-55% - stable 3. possible sepsis with unknown etiology - VS has been stable after NS bolus. May stop NS if his VS is still stable with Metoprolol. Cont. to monitor 4. SHAYLA - improved today. 5. Hyperlipidemia - on Statin 6. Hx of CVA 7. hx of prostate cancer 8. hx of Carotid artery disease - stable MAR reviewed * Echo in 02/2018 showed EF 50-55%, grade I diastolic dysfunction, mildly dilated LA, mild TR and mod MR. * OK to tx to tele floor. Review of Systems - Review of Systems Constitutional: reports: no symptoms reported EENTM: reports: no symptoms reported Respiratory: reports: no symptoms reported Cardiac (ROS): reports: no symptoms reported ABD/GI: reports: see HPI : reports: no symptoms reported Musculoskeletal: reports: no symptoms reported <Vivian Stephenson - Last Filed: 03/22/18 10:34> Cardiology Progress Note - Objective Vital Signs Temp 03/22/18 04:00 98.4 F 03/22/18 00:00 98.0 F Weight 156 lb 4.924 oz 03/21/18 03/22/18 03/23/18 06:59 06:59 06:59 Intake Total 3132 Output Total 200 950 Balance -200 2182 - Labs Result Diagrams: 03/21/18 14:59 03/22/18 04:30 Troponin/CKMB CK-MB (CK-2) 8.1 ng/mL (0-6.6) H* 03/21/18 07:19 Troponin I 0.216 ng/mL (< 0.028) H 03/21/18 07:19 - Assessment/Plan Pt. seen and eval. by me. I agree with the A/P by the FRANCHISE SPECIALIST. EP to se pt. regarding fib/flutter. Depending on suggestion as to whether EP study is planned in the next few days, will need to start OAC. RRR.Chest clear. No edema.
[2018-03-22] MEDS ORDERED: Potassium Chloride 20 MEQ TAB PO SCH (09:00)
[2018-03-22] MEDS: Aspirin 325 MG TAB PO SCH (09:06)
[2018-03-22] MEDS: Clopidogrel Bisulfate 75 MG TAB PO SCH (09:06)
[2018-03-22] MEDS: Vancomycin HCl 1 GM in Premix Bag 1 BAG IVPB SCH (09:07)
--- NOTE | 2018-03-22 09:37 | PDOC.PN ---
- Subjective Encounter Start Date: 03/22/18 Encounter Start Time: 09:35 Subjective: alert, vague ant chest pain persists - Objective Resuscitation Status - Order Detail: 03/21/18 03:17 Resuscitation Status Routine Resuscitation Status: FULL: Full Resuscitation MAR Reviewed: Yes Vital Signs & Weight: Vital Signs (12 hours) Temp 03/22/18 04:00 98.4 F 03/22/18 00:00 98.0 F Weight Weight 156 lb 4.924 oz Most Recent Monitor Data Heart Rate from ECG 73 NIBP 147/83 NIBP BP-Mean 104 Respiration from ECG 20 SpO2 99 I&O: 03/21/18 03/22/18 03/23/18 06:59 06:59 06:59 Intake Total 3132 Output Total 200 950 Balance -200 2182 Result Diagrams: 03/21/18 14:59 03/22/18 04:30 Phys Exam - Physical Examination Neck: no JVD Respiratory: clear to auscultation bilateral Cardiovascular: RRR, no significant murmur Gastrointestinal: soft, positive bowel sounds Musculoskeletal: no edema Dx/Plan (1) Atrial flutter Code(s): I48.92 - UNSPECIFIED ATRIAL FLUTTER Status: Acute Qualifiers: Atrial flutter type: typical Qualified Code(s): I48.3 - Typical atrial flutter (2) Hypotension Status: Acute Qualifiers: Hypotension type: idiopathic hypotension Qualified Code(s): I95.0 - Idiopathic hypotension (3) UTI (urinary tract infection) Status: Acute Qualifiers: Urinary tract infection type: site unspecified Hematuria presence: without hematuria Qualified Code(s): N39.0 - Urinary tract infection, site not specified (4) Elevated troponin I level Code(s): R74.8 - ABNORMAL LEVELS OF OTHER SERUM ENZYMES Status: Acute (5) Chest pain Code(s): R07.9 - CHEST PAIN, UNSPECIFIED Status: Acute Qualifiers: Chest pain type: unspecified Qualified Code(s): R07.9 - Chest pain, unspecified (6) CAD (coronary artery disease) Code(s): I25.10 - ATHSCL HEART DISEASE OF [place] CORONARY ARTERY W/O ANG PCTRS Status: Chronic Qualifiers: Coronary Disease-Associated Artery/Lesion type: [place] artery [place] vs. transplanted heart: kake heart Associated angina: angina presence unspecified Qualified Code(s): I25.10 - Atherosclerotic heart disease of [place] coronary artery without angina pectoris (7) Dyslipidemia Code(s): E78.5 - HYPERLIPIDEMIA, UNSPECIFIED Status: Chronic (8) HTN (hypertension) Code(s): I10 - ESSENTIAL (PRIMARY) HYPERTENSION Status: Chronic - Plan stable at present -: cont iv zosyn, DC vancomyccin -: cont metoprolol, ASA, plavix -: discuss with cardiology * .
[2018-03-22] MEDS ORDERED: Potassium Phosphate 30 MMOL in Sodium Chloride 0.9% 500 ML IVPB SCH (12:45)
[2018-03-22] MEDS ORDERED: Magnesium 2 GM/50 ML 2 GM in Premix Bag 1 BAG IVPB SCH (13:00)
--- NOTE | 2018-03-22 13:09 | PRG ---
DATE OF SERVICE: 03/22/2018 SERVICE: Pulmonary Medicine. INTERVAL HISTORY: The patient is doing really well from respiratory standpoint. Breathing comfortably. Denies any current chest pain, fevers, or chills. His blood pressures have firmed up very nicely. He has been put on some antibiotics. His blood cultures were abnormal overnight. Otherwise, there were no significant events. PHYSICAL EXAMINATION: VITAL SIGNS: Afebrile. Pulse 64, blood pressure 143/72, respirations 24, and saturation 100% on room air. GENERAL: The patient is awake, alert, in no apparent distress. LUNGS: Decent air entry. I do not hear any rhonchi or crackles or wheezing. HEART: Normal rate and regular. ABDOMEN: Soft, nontender, and nondistended. Bowel sounds are positive. MUSCULOSKELETAL: No cyanosis or clubbing. There is trace pitting in the bilateral lower extremities. NEUROLOGIC: Grossly nonfocal. LABORATORY DATA: WBC 6.6, hemoglobin 12.3, and platelets 72,000. Band count is 17% and roughly stable. Lymphocyte count is rebounding. Creatinine continues to improve at 0.88. Potassium 3.4. Phosphorus 1.6. Magnesium 1.8, roughly stable. Klebsiella is growing in one out of two blood cultures. Urine culture is negative to date. ASSESSMENT: 1. Severe sepsis, resolving. 2. Bacteremia secondary to Klebsiella. 3. Acute kidney injury, resolved. DISCUSSION AND PLAN: We will continue our antibiotics. The patient can be transitioned out of the ICU back to the telemetry unit. When he arrives or coming out, no further requirements for inpatient Pulmonary Critical Care opinion, and I will sign off. Please call with additional questions or concerns. Job ID: [id number]
[2018-03-22] MEDS ORDERED: hydrALAZINE 20 MG/ML VIAL SLOW IVP PRN (16:13)
--- NOTE | 2018-03-22 16:19 | PDOC.EVN ---
Event Note - Event Note Event Note: UA pyuria,bacturia- await urine C&S
[2018-03-22] MEDS: Dronedarone HCl 400 MG TAB PO SCH (16:26)
[2018-03-22] MEDS ORDERED: Mag-Al 1200 mg/1200 mg/30 ML UDCUP PO PRN (18:49)
[2018-03-22] MEDS ORDERED: Famotidine 20 MG TAB PO SCH (19:00)
[2018-03-22] MEDS ORDERED: Mag-Al 1200 mg/1200 mg/30 ML UDCUP PO SCH (19:00)
[2018-03-22] MEDS: traMADol HCl 50 MG TAB PO PRN (19:58)
[2018-03-22] MEDS: Atorvastatin Calcium 20 MG TAB PO SCH (19:59)
[2018-03-22] MEDS: Apixaban 2.5 MG TAB PO SCH (19:59)
--- NOTE | 2018-03-23 01:46 | CON ---
DATE OF CONSULTATION: 03/22/2018 REASON FOR CONSULTATION: Atrial flutter. HISTORY OF PRESENT ILLNESS: Mr. Pacheco is an 87-year-old gentleman who lives with his son, who recently presented to [facility] reporting abdominal pain in the lower abdominal area that radiates up to the chest. In the emergency room, he was found to be in atrial flutter and underwent cardioversion in the ER, which initially successfully restored the sinus rhythm. His cardiac enzymes were slightly elevated and this was attributed to sustained rapid ventricular rate with his atrial flutter. There has been no significant indication for acute coronary artery disease issues, although he does have extensive coronary artery disease. He was found to have 3-vessel coronary artery disease by left heart catheterization in 2004 when he was admitted for chest pain. [place] OCA to the LAD was patent, saphenous graft to the RCA, diagonal branch in the OM were patent, 50% stenosis mid SVG to RCA. Ejection fraction in 2014 was 50% to 55%. He was admitted for further monitoring. During this time, he has been in and out of ICU for his chest pain and rapid heart rates. He will occasionally have RVR episodes with heart rates up to 180 beats per minute and reportedly, he was on the diltiazem drip for a short amount of time, but currently is not on any diltiazem, or rate control agents, or antiarrhythmic IV agents. He is currently pending transfer out of ICU to telemetry. He has had fevers on and off and continued abdominal discomfort. He was found to have single positive blood culture for Klebsiella oxytoca. Preliminary urine culture is negative at 12 hours, but he is on empiric antibiotics for his bacteremia. REVIEW OF SYSTEMS: Mr. Pacheco is resting comfortably in bed. His largest concern and complaint is that he has not had a bowel movement in three days. He denies any heart racing, palpitations, chest pain, pressure, syncope, near syncope, stroke, or stroke-like symptoms. He does feel very weak. He will occasionally have some lower abdominal pain that radiates up to the chest, but he is largely denying any awareness of heart racing or palpitations. A 12-point review of systems was conducted, is negative except that listed above in the HPI. PAST MEDICAL HISTORY: 1. Positive for coronary artery disease, status post coronary artery bypass grafting. 2. Hypercholesterolemia. 3. Hypertension. 4. History of prostate cancer. 5. Cerebrovascular accident approximately 10 years back. 6. Carotid artery disease. ALLERGIES: NONE. HOME MEDICATIONS: 1. Aspirin 325 mg p.o. b.i.d. 2. Plavix 75 mg p.o. daily. 3. Lisinopril 5 mg p.o. daily. 4. Metoprolol 12.5 mg p.o. daily. 5. Zocor 40 mg p.o. at bedtime. FAMILY HISTORY: Negative for sudden cardiac or early-onset coronary artery disease. SOCIAL HISTORY: He lives with his son. Negative for alcohol, tobacco, or illicit drug use. PHYSICAL EXAMINATION: VITAL SIGNS: Most recent vital signs; pulse 64, blood pressure 143/72, respirations 24, and oxygen is 100% on room air. GENERAL: Mr. Pacheco is an elderly gentleman, who appears his stated age. He is in no apparent distress. His speech is somewhat garbled. His affect is appropriate. HEENT: Normocephalic and atraumatic. No jugular venous distention. Thyroid is not palpable. Oral mucosa is moist and pink. CARDIAC: without murmur, rub, or gallop. [place] S1 and S2. PULMONARY: Clear to auscultation bilaterally. ABDOMEN: Soft and nontender without palpable masses. EXTREMITIES: Warm and dry to touch without clubbing, cyanosis, or edema. NEUROLOGIC: Grossly intact and nonfocal with cranial nerves 2 through 12. MUSCULOSKELETAL: Not assessed. DATABASE: Laboratory; WBC is 6.6, hemoglobin 12.3, hematocrit 37.7, and platelet count is 72. Chemistry; sodium 138, potassium 3.4, BUN 35, creatinine 0.88 (2.16 yesterday), and magnesium is 1.8. AST 78 and ALT 156. Review of telemetry and EKGs, currently reflect sinus rhythm. There have been paroxysmal episodes of atypical atrial flutter occasionally with very rapid RVR, with rates up to 180 beats per minute and also atrial fibrillation has been seen. IMPRESSION: 1. Newly diagnosed paroxysmal/persistent atrial fibrillation and atypical atrial flutter, status post cardioversion on 03/21/2018 in the emergency room. 2. Bacteremia with Klebsiella oxytoca, on antibiotics for his sepsis. 3. CHADS-VASc score of 6, on the basis of advanced age, prior stroke, vascular disease, and hypertension. RECOMMENDATIONS: We discussed atrial arrhythmias with Mr. Pacheco as this is a new presentation for him, but he appears to be symptomatic and have associated pain when he is out of rhythm, even though he is unaware of heart racing or palpitations. With his advanced age and medical status, he is a poor candidate for ablative therapy. At this point, we would recommend antiarrhythmic therapy for suppression either with Multaq if this is affordable or alternatively amiodarone. His LFTs were slightly elevated upon admission, will require continued monitoring to ensure that and Multaq is a good option for him. He will still require oral anticoagulation ideally with Eliquis 5 mg p.o. b.i.d. In light of his creatinine of 2 yesterday, in addition to his Plavix and aspirin, we will place him on Eliquis 2.5 mg p.o. b.i.d. for the time being, but anticipate him requiring a higher dose upon discharge and will possibly need to come off Plavix or aspirin if this is at all possible to avoid over anticoagulating him and having higher risk for bleeding issues. This was discussed with Dr. Stephenson. Thank you for allowing us to participate in the care of this patient. We will continue to follow. Job ID: [id number]
[2018-03-23] MEDS: Piperacillin/Tazobactam 3.375 GM in Sodium Chloride 0.9% 100 ML IVPB SCH (02:13)
[2018-03-23] MEDS: Acetaminophen 325 MG TAB PO PRN (04:38)
[2018-03-23] MEDS ORDERED: Digoxin 0.5 MG/2 ML AMP ONE (04:53)
[2018-03-23] MEDS ORDERED: Potassium Phosphate 12 MMOL in Sodium Chloride 0.9% 250 ML 250 ML IVPB SCH (05:00)
[2018-03-23] MEDS ORDERED: Digoxin 0.5 MG/2 ML AMP SLOW IVP SCH (05:00)
[2018-03-23 06:06] LABS: Hemoglobin 11.9 g/dL (14.0-18.0)
--- NOTE | 2018-03-23 08:01 | PDOC.PN ---
- Subjective Encounter Start Date: 03/23/18 Encounter Start Time: 07:58 Subjective: some indigestion last nite, relieved with maalox - Objective Resuscitation Status - Order Detail: 03/21/18 03:17 Resuscitation Status Routine Resuscitation Status: FULL: Full Resuscitation MAR Reviewed: Yes Vital Signs & Weight: Vital Signs (12 hours) Temp Pulse Resp BP BP BP Pulse Ox 03/23/18 05:18 189 H 03/23/18 04:59 100.1 F H 28 H 182/78 H 96 03/23/18 04:56 189 H 118/72 03/23/18 03:10 98.5 F 64 20 127/66 93 L 03/22/18 21:17 70 161/76 H 03/22/18 20:09 99 Weight Weight 153 lb 14.4 oz Most Recent Monitor Data Heart Rate from ECG 61 NIBP 159/75 NIBP BP-Mean 103 Respiration from ECG 22 SpO2 100 I&O: 03/22/18 03/23/18 03/24/18 06:59 06:59 06:59 Intake Total 3132 360 Output Total 950 200 Balance 2182 160 Result Diagrams: 03/23/18 05:47 03/22/18 04:30 Phys Exam - Physical Examination Neck: no JVD Respiratory: clear to auscultation bilateral Cardiovascular: RRR, no significant murmur Gastrointestinal: soft, positive bowel sounds Musculoskeletal: no edema Dx/Plan (1) Atrial flutter Code(s): I48.92 - UNSPECIFIED ATRIAL FLUTTER Status: Acute Qualifiers: Atrial flutter type: typical Qualified Code(s): I48.3 - Typical atrial flutter (2) Hypotension Status: Resolved Qualifiers: Hypotension type: idiopathic hypotension Qualified Code(s): I95.0 - Idiopathic hypotension (3) UTI (urinary tract infection) Status: Acute Qualifiers: Urinary tract infection type: site unspecified Hematuria presence: without hematuria Qualified Code(s): N39.0 - Urinary tract infection, site not specified (4) Elevated troponin I level Code(s): R74.8 - ABNORMAL LEVELS OF OTHER SERUM ENZYMES Status: Acute (5) Chest pain Code(s): R07.9 - CHEST PAIN, UNSPECIFIED Status: Acute Qualifiers: Chest pain type: unspecified Qualified Code(s): R07.9 - Chest pain, unspecified (6) CAD (coronary artery disease) Code(s): I25.10 - ATHSCL HEART DISEASE OF [place] CORONARY ARTERY W/O ANG PCTRS Status: Chronic Qualifiers: Coronary Disease-Associated Artery/Lesion type: [place] artery [place] vs. transplanted heart: [place] heart Associated angina: angina presence unspecified Qualified Code(s): I25.10 - Atherosclerotic heart disease of [place] coronary artery without angina pectoris (7) Dyslipidemia Code(s): E78.5 - HYPERLIPIDEMIA, UNSPECIFIED Status: Chronic (8) HTN (hypertension) Code(s): I10 - ESSENTIAL (PRIMARY) HYPERTENSION Status: Chronic - Plan now in RSR- cont multaq -: UTI- deescalate anti to po cefdinar -: discuss with cardiology * .
--- NOTE | 2018-03-23 08:34 | PDOC.CTH ---
<Rosa Aguirre - Last Filed: 03/23/18 08:42> Cardiology Progress Note - Subjective The pt seen and examined. No overnight events. No cardiac complaints. Stated he does not have ABD pain/discomfort now. HR was up to 190 around 0400 and converted back to SR after 1 dose of Digoxin 0.125mg IV push. - Objective Vital Signs Temp Pulse Resp BP BP BP Pulse Ox 03/23/18 05:18 189 H 03/23/18 04:59 100.1 F H 28 H 182/78 H 96 03/23/18 04:56 189 H 118/72 03/23/18 03:10 98.5 F 64 20 127/66 93 L 03/22/18 21:17 70 161/76 H Weight 153 lb 14.4 oz 03/22/18 03/23/18 03/24/18 06:59 06:59 06:59 Intake Total 3132 360 Output Total 950 200 Balance 2182 160 - Physical Examination General/Neuro: alert & oriented x3 Neck: no JVD present Lungs: CTA Heart: RRR Abdomen: soft Extremities: other: (No edema) - Labs Result Diagrams: 03/23/18 05:47 03/22/18 04:30 Troponin/CKMB CK-MB (CK-2) 8.1 ng/mL (0-6.6) H* 03/21/18 07:19 Troponin I 0.216 ng/mL (< 0.028) H 03/21/18 07:19 - Assessment/Plan 1. New-onset Aflutter with RVR and S/p DCCV on 03/21/18 - 1 episode of SVT? around 0400 this AM; remains in SR/SA after 1 dose of Digoxin 0.125mg IV push today; On Multaq, Metoprolol 12.5mg qd and Eliquis 2.5mg BID; [id number] Score is 7 (age, HTN, CHF, hx of CVA, Carotid artery disease). Not good candidate for ablation therapy due to his age and medical condition. Appreciate EP input. 2. CAD with hx of CABG and s/p LHC in 2014 with 50% stenosis in RCA, 50% in postlateral branch with EF 50-55% - stable; On BBlocker, Plavix, and ASA which decreased from 325mg to 81mg qd. 3. sepsis with Klebsiella oxytoca - On ABX IV; VS stable at this moment; managed by PCP 4. SHAYLA - improved today. 5. Hyperlipidemia - on Statin 6. Hx of CVA 7. Hx of prostate cancer 8. Hx of Carotid artery disease - stable MAR reviewed * Echo in 02/2018 showed EF 50-55%, grade I diastolic dysfunction, mildly dilated LA, mild TR and mod MR. Review of Systems - Review of Systems Constitutional: reports: no symptoms reported EENTM: reports: no symptoms reported Respiratory: reports: no symptoms reported Cardiac (ROS): reports: no symptoms reported ABD/GI: reports: no symptoms reported : reports: no symptoms reported Musculoskeletal: reports: no symptoms reported <Vivian Stephenson - Last Filed: 03/23/18 11:31> Cardiology Progress Note - Objective Vital Signs Temp Pulse Resp BP BP BP Pulse Ox 03/23/18 08:46 98.3 F 64 16 120/58 L 95 03/23/18 05:18 189 H 03/23/18 04:59 100.1 F H 28 H 182/78 H 96 03/23/18 04:56 189 H 118/72 03/23/18 03:10 98.5 F 64 20 127/66 93 L Weight 153 lb 14.4 oz 03/22/18 03/23/18 03/24/18 06:59 06:59 06:59 Intake Total 3132 360 Output Total 950 200 Balance 2182 160 - Labs Result Diagrams: 03/23/18 09:16 03/23/18 09:16 Troponin/CKMB CK-MB (CK-2) 8.1 ng/mL (0-6.6) H* 03/21/18 07:19 Troponin I 0.216 ng/mL (< 0.028) H 03/21/18 07:19 - Assessment/Plan Pt. seen and eval. by me. I agree with the A/P by the PLANT GUARD. EP is also following the pt. Still having episodes of tachycardia. Chest clear. RRR at this time.
[2018-03-23] MEDS: Clopidogrel Bisulfate 75 MG TAB PO SCH (08:52)
[2018-03-23] MEDS: Apixaban 2.5 MG TAB PO SCH ×2 (08:52→20:25)
[2018-03-23] MEDS: Dronedarone HCl 400 MG TAB PO SCH ×2 (08:52→17:47)
[2018-03-23] MEDS: Aspirin 325 MG TAB PO SCH (08:54)
[2018-03-23 09:45] LABS: ALT (SGPT) 61 U/L (8-55); AST (SGOT) 53 U/L (5-34); Albumin 2.4 g/dL (3.4-4.8); Alkaline Phosphatase 219 U/L (40-150); Anion Gap 9 mmol/L (10-20); BUN (Urea Nitrogen) 21 mg/dL (8.4-25.7); Bilirubin, Total 4.8 mg/dL (0.2-1.2); Calc. Creatinine Clearance 61 mL/min (70-130); Calcium 7.9 mg/dL (7.8-10.44); Carbon Dioxide 21 mmol/L (23-31); Chloride 113 mmol/L (98-107); Estimated GFR-MDRD 84; Glucose 123 mg/dL (83-110); Potassium 4.1 mmol/L (3.5-5.1); Protein, Total 5.4 g/dL (5.8-8.1); Sodium 139 mmol/L (136-145)
[2018-03-23 09:50] LABS: Hemoglobin 11.6 g/dL (14.0-18.0); Mean Corpuscular HGB CONC 33.8 g/dL (32.0-36.0); Mean Corpuscular Hemoglobin 34.1 pg (27.0-31.0); Mean Platelet Volume 9.8 fL (7.4-10.4); Platelet Count 61 thou/uL (130-400); RBC Distribution Width 12.4 % (11.5-14.5); White Blood Cell (WBC) Count 8.6 thou/uL (4.8-10.8)
[2018-03-23] MEDS: Cefdinir 300 MG CAP PO SCH (10:02)
[2018-03-23 11:12] LABS: Band 25 % (5-11); Lymphocytes 6 % (21-51); MDiff Complete? YES; Monocytes 6 % (0-10); Neutrophil 63 % (42-75); PLT Morphology Comment Appears Decreased; RBC Morphology Normal
--- NOTE | 2018-03-23 13:12 | PQF ---
CLINICAL DOCUMENTATION IMPROVEMENT CLARIFICATION FORM: ICD-10 Updated PLEASE DO AN ADDENDUM TO THE PROGRESS NOTE WITH ANY DOCUMENTATION UPDATES OR ADDITIONS AND CARRY THROUGH TO DC SUMMARY. THANK YOU. DATE: 03/23/18 ATTN: Please exercise your independent, professional judgment in responding to the clarification form. Clinical indicators are provided on the bottom of this form for your review Please check appropriate box(s) to clarify if the following diagnosis has been ruled in or ruled out: "SEPSIS" [ x ] Ruled in diagnosis [ x ] Continue to treat [ ] Resolved [ ] Ruled out diagnosis [ ] Cannot rule out diagnosis [ ] Other diagnosis [ ] Unable to determine In addition, please specify: Present on Admission (POA): [ x] Yes [ ] No [ ] Unable to determine For continuity of documentation, please document condition throughout progress notes and discharge summary. Thank You. CLINICAL INDICATORS - SIGNS / SYMPTOMS / LABS CARDIOLOGY NOTE 03/22: "POSSIBLE SEPSIS WITH UNKNOWN ETIOLOGY" PROGRESS NOTE 03/23 (CARDIOLOGY): "SEPSIS WITH KLEBSIELLA OXYTOCA" BP 71/36 PULSE 123 RR 25 WBC 03/21: 13.8 BANDS 16-34 RISKS: ADVANCED AGE SHAYLA DEHYDRATION HYPOTENSION UTI TREATMENT: IV FLUIDS (ER) PO OMNICEF (STARTED 03/23) IV ZOSYN (03/23) URINE AND BLOOD CULTURES (This form is maintained as a part of the permanent medical record) 2014 [employer]. All Rights Reserved WOODROW [email or web address] Office: [phone] [facility] CENTERPhillip
--- NOTE | 2018-03-23 19:17 | PRG ---
DATE OF SERVICE: 03/23/2018 ELECTROPHYSIOLOGY FOLLOWUP NOTE SUBJECTIVE: Mr. Pacheco seems to be doing fair. No new cardiac symptoms noted. OBJECTIVE: VITAL SIGNS: Blood pressure is 120/58, heart rate 64, and respiratory rate 16. The patient is afebrile. GENERAL: This is an alert and oriented man, in no apparent distress. NECK: Supple. Jugular veins not distended. CHEST: Coarse without crackles. HEART: Sounds are regular rate and rhythm. No murmur or gallop. ABDOMEN: Benign. Bowel sounds positive. EXTREMITIES: Lower extremities, no edema, clubbing, or cyanosis. DATABASE: EKGs and telemetry strips reviewed revealing an episode of rapid atrial tachycardia and it was self-terminated. Digoxin 0.125 was also given IV. ASSESSMENT AND PLAN: Mr. Pacheco is an 87-year-old man with history of coronary artery disease, bypass grafting, hypertension, and carotid artery disease, who presented with bacteremia with Klebsiella in the settings of urinary tract infection. He is developing episodes of rapid atrial flutter and fibrillation. Episodes appear to be due to flutter and now not coming so that they are typical isthmus dependent in morphology. At this point, we are pursuing medical management, started on Multaq, monitoring liver function tests is prudent. LFTs this morning continues to decrease. Plan is to continue Multaq at this point despite the recurrence. I am anticipating gradual diminishment of the atrial episodes on Multaq. Monitor LFTs and QT prolongation. Job ID: [id number]
[2018-03-23] MEDS: Atorvastatin Calcium 20 MG TAB PO SCH (20:25)
--- NOTE | 2018-03-24 08:28 | PDOC.CTH ---
<Rosa Agiurre - Last Filed: 03/24/18 08:29> Cardiology Progress Note - Subjective The pt seen and examined. No overnight events. No cardiac complaints. - Objective Vital Signs Temp Pulse Resp BP Pulse Ox 03/24/18 04:00 98.6 F 65 18 143/65 H 93 L Weight 157 lb 1.6 oz 03/23/18 03/24/18 03/25/18 06:59 06:59 06:59 Intake Total 360 985 Output Total 200 775 Balance 160 210 - Physical Examination General/Neuro: alert & oriented x3 Neck: no JVD present Lungs: CTA Heart: RRR Abdomen: soft Extremities: other: (No edema) - Telemetry Telemetry Rhythm: SR 60s - Labs Result Diagrams: 03/23/18 09:16 03/23/18 09:16 Troponin/CKMB CK-MB (CK-2) 8.1 ng/mL (0-6.6) H* 03/21/18 07:19 Troponin I 0.216 ng/mL (< 0.028) H 03/21/18 07:19 - Assessment/Plan 1. New-onset Aflutter with RVR and S/p DCCV on 03/21/18 - No SVT/Afib/Aflutter event since yesterday; remains in SR/SA with nn Multaq, Metoprolol 12.5mg qd and Eliquis 2.5mg BID; [id number] Score is 7 (age, HTN, CHF, hx of CVA, Carotid artery disease). Not good candidate for ablation therapy due to his age and medical condition. Appreciate EP input. 2. CAD with hx of CABG and s/p LHC in 2014 with 50% stenosis in RCA, 50% in postlateral branch with EF 50-55% - stable; On BBlocker, Plavix, and ASA which decreased from 325mg to 81mg qd. 3. Sepsis with Klebsiella oxytoca - On ABX IV; VS stable at this moment; managed by PCP 4. SHAYLA - improved today. 5. Hyperlipidemia - on Statin 6. Hx of CVA 7. Hx of prostate cancer 8. Hx of Carotid artery disease - stable MAR reviewed * Echo in 02/2018 showed EF 50-55%, grade I diastolic dysfunction, mildly dilated LA, mild TR and mod MR. Review of Systems - Review of Systems Constitutional: reports: no symptoms reported EENTM: reports: no symptoms reported Respiratory: reports: no symptoms reported Cardiac (ROS): reports: no symptoms reported ABD/GI: reports: no symptoms reported : reports: no symptoms reported Musculoskeletal: reports: no symptoms reported <Vivian Stephenson - Last Filed: 03/24/18 12:45> Cardiology Progress Note - Objective Vital Signs Temp Pulse Resp BP Pulse Ox 03/24/18 12:10 98.0 F 63 16 144/65 H 96 03/24/18 08:00 98.3 F 65 20 160/77 H 95 03/24/18 04:00 98.6 F 65 18 143/65 H 93 L Weight 157 lb 1.6 oz 03/23/18 03/24/18 03/25/18 06:59 06:59 06:59 Intake Total 360 985 Output Total 200 775 Balance 160 210 - Labs Result Diagrams: 03/23/18 09:16 03/23/18 09:16 Troponin/CKMB CK-MB (CK-2) 8.1 ng/mL (0-6.6) H* 03/21/18 07:19 Troponin I 0.216 ng/mL (< 0.028) H 03/21/18 07:19 - Assessment/Plan Pt. seen and eval.by me.I agree with the A/P by the DENTAL MANAGER.He is maintaining sinus rhythm. Chest clear.RRR.Overall cardiac status is stable.
[2018-03-24] MEDS: Cefdinir 300 MG CAP PO SCH (09:54)
[2018-03-24] MEDS: Dronedarone HCl 400 MG TAB PO SCH ×2 (09:54→16:17)
[2018-03-24] MEDS: Apixaban 2.5 MG TAB PO SCH (09:55)
[2018-03-24] MEDS: Clopidogrel Bisulfate 75 MG TAB PO SCH (09:56)
--- NOTE | 2018-03-24 10:16 | PDOC.PN ---
- Subjective Encounter Start Date: 03/24/18 Encounter Start Time: 10:14 Subjective: i dont know whats going on - Objective Resuscitation Status - Order Detail: 03/21/18 03:17 Resuscitation Status Routine Resuscitation Status: FULL: Full Resuscitation MAR Reviewed: Yes Vital Signs & Weight: Vital Signs (12 hours) Temp Pulse Resp BP Pulse Ox 03/24/18 08:00 98.3 F 65 20 160/77 H 95 03/24/18 04:00 98.6 F 65 18 143/65 H 93 L Weight Weight 157 lb 1.6 oz Most Recent Monitor Data Heart Rate from ECG 61 NIBP 159/75 NIBP BP-Mean 103 Respiration from ECG 22 SpO2 100 I&O: 03/23/18 03/24/18 03/25/18 06:59 06:59 06:59 Intake Total 360 985 Output Total 200 775 Balance 160 210 Result Diagrams: 03/23/18 09:16 03/23/18 09:16 Phys Exam - Physical Examination icteric Neck: no JVD Respiratory: clear to auscultation bilateral Cardiovascular: RRR, no significant murmur Gastrointestinal: soft, non-tender, positive bowel sounds Musculoskeletal: no edema Dx/Plan (1) Atrial flutter Code(s): I48.92 - UNSPECIFIED ATRIAL FLUTTER Status: Acute Qualifiers: Atrial flutter type: typical Qualified Code(s): I48.3 - Typical atrial flutter (2) Hypotension Status: Resolved Qualifiers: Hypotension type: idiopathic hypotension Qualified Code(s): I95.0 - Idiopathic hypotension (3) UTI (urinary tract infection) Status: Acute Qualifiers: Urinary tract infection type: site unspecified Hematuria presence: without hematuria Qualified Code(s): N39.0 - Urinary tract infection, site not specified (4) Elevated troponin I level Code(s): R74.8 - ABNORMAL LEVELS OF OTHER SERUM ENZYMES Status: Acute (5) Chest pain Code(s): R07.9 - CHEST PAIN, UNSPECIFIED Status: Acute Qualifiers: Chest pain type: unspecified Qualified Code(s): R07.9 - Chest pain, unspecified (6) CAD (coronary artery disease) Code(s): I25.10 - ATHSCL HEART DISEASE OF [place] CORONARY ARTERY W/O ANG PCTRS Status: Chronic Qualifiers: Coronary Disease-Associated Artery/Lesion type: [place] artery [place] vs. transplanted heart: [place] heart Associated angina: angina presence unspecified Qualified Code(s): I25.10 - Atherosclerotic heart disease of [place] coronary artery without angina pectoris (7) Dyslipidemia Code(s): E78.5 - HYPERLIPIDEMIA, UNSPECIFIED Status: Chronic (8) HTN (hypertension) Code(s): I10 - ESSENTIAL (PRIMARY) HYPERTENSION Status: Chronic Qualifiers: Hypertension type: essential hypertension Qualified Code(s): I10 - Essential (primary) hypertension (9) Sepsis associated hypotension Code(s): A41.9 - SEPSIS, UNSPECIFIED ORGANISM; I95.9 - HYPOTENSION, UNSPECIFIED Status: Acute (10) Jaundice Code(s): R17 - UNSPECIFIED JAUNDICE Status: Acute - Plan cont po antibx -: cont multaq, asa, plavix -: GB US * .
--- NOTE | 2018-03-24 10:21 | PRG ---
DATE OF SERVICE: 03/24/2018 ELECTROPHYSIOLOGY FOLLOWUP NOTE SUBJECTIVE: Mr. Pacheco is doing well. He has no recurrent atrial flutter episodes. Continues on Multaq. OBJECTIVE DATA: VITAL SIGNS: Blood pressure is 143/65, heart rate 65, respiratory rate is 18, and temperature 98.6 degrees Fahrenheit. GENERAL: Alert and oriented man, in no apparent distress. NECK: Supple. Jugular veins are not distended. CHEST: Coarse without crackles. HEART: Sounds are regular rate and rhythm. No murmur or gallop. ABDOMEN: Benign. Bowel sounds positive. EXTREMITIES: Lower extremities, no edema, clubbing, or cyanosis. DIAGNOSTIC STUDIES: The telemetry strips reviewed revealing sinus rhythm, no recurrent tachyarrhythmia. ASSESSMENT AND PLAN: Mr. Pacheco is an 87-year-old man, who presented with atrial tachyarrhythmias and he was converted back to sinus rhythm. He also was noted to have some acute kidney injury. He was placed on Multaq and so far the rhythm remained stable. He had mildly elevated LFTs and telemtry and EKGs are being monitored throughout his stay. Multaq seems to be sufficiently suppressing his arrhythmia so far. For now, continue to monitor the liver function and EKG. Job ID: [id number] [facility]
--- NOTE | 2018-03-24 13:25 | ULT ---
GALLBLADDER ULTRASOUND: HISTORY: Elevated LFTs. Jaundice. COMPARISON: None. TECHNIQUE: Utilizing a Multi-Hertz transducer, sonographic imaging of the right upper quadrant was performed in the longitudinal and transverse plane. FINDINGS: Suboptimal evaluation of the pancreas. Increased echogenicity to the liver, which may be due to hepatic steatosis or hepatocellular disease. Subsequent evaluation for hepatic masses and intrahepatic biliary dilatation is limited. Contour o f the hepatic margin appears to be maintained. The main portal vein is patent. Appropriate direction of flow. The right hepatic lobe does measures 14.7 cm. The right kidney has a normal cortical echotexture. No hydronephrosis. The right kidney measures 6 x 11.9 x 6.2 cm. Multiple echogenic foci within the lumen of the gallbladder. The gallbladder is distended, measuring 10.9 cm in maximum dimension. The gallbladder wall is not thickened. No pericholecystic fluid. Ne gative Spaulding sign. The common bile duct is enlarged, measuring 1.2 cm. IMPRESSION: 1. Sonographic evidence of cholelithiasis without definite sonographic evidence of cholecystitis. 2. Prominent common bile duct. The possibility of choledocholithiasis is raised. Consider further evaluation with ERCP or MRCP. 3. Increased echogenicity of the liver, which may be due to hepatic steatosis or hepatocellular dise ase. Further evaluation of the liver with an abdomen MRI can be performed at the same time as the MRCP. POS: [facility]
--- NOTE | 2018-03-24 15:01 | EKG ---
Test Reason : Blood Pressure : / mmHG Vent. Rate : 137 BPM Atrial Rate : 125 BPM P-R Int : 000 ms QRS Dur : 088 ms QT Int : 280 ms P-R-T Axes : 000 020 029 degrees QTc Int : 422 ms Atrial fibrillation with rapid ventricular response with premature ventricular or aberrantly conducte d complexes Inferior infarct , age undetermined Cannot rule out Anterior infarct , age undetermined Abnormal ECG Confirmed by DANA Pendleton, JAS ([id number]), commissioning editor FANINE FOWLER ([id number]) on 03/24/2018 3:01:38 PM Referred By: Confirmed By:JAS CORTEZ M.D.
--- NOTE | 2018-03-24 15:01 | EKG ---
Test Reason : CP Blood Pressure : / mmHG Vent. Rate : 107 BPM Atrial Rate : 394 BPM P-R Int : 000 ms QRS Dur : 088 ms QT Int : 316 ms P-R-T Axes : 080 027 059 degrees QTc Int : 421 ms Atrial flutter with variable A-V block Inferior infarct , age undetermined Cannot rule out Anterior infarct , age undetermined Abnormal ECG Confirmed by DANA Pendleton, JAS ([id number]), research editor FANNIE FOWLER ([id number]) on 03/24/2018 3:01:03 PM Referred By: LADONNA Confirmed By:JAS CORTEZ M.D.
--- NOTE | 2018-03-24 15:02 | EKG ---
Test Reason : Blood Pressure : / mmHG Vent. Rate : 060 BPM Atrial Rate : 060 BPM P-R Int : 148 ms QRS Dur : 092 ms QT Int : 374 ms P-R-T Axes : 036 000 047 degrees QTc Int : 374 ms Normal sinus rhythm with sinus arrhythmia Incomplete right bundle branch block Inferior infarct , age undetermined Abnormal ECG Confirmed by JAS CORTEZ M.D. ([id number]), general expeditor FANNIE FOWLER ([id number]) on 03/24/2018 3:01:43 PM Referred By: Confirmed By:JAS CORTEZ M.D.
[2018-03-24] MEDS ORDERED: cefTRIAXone\\ROCEPHIN 2 GM in Sodium Chloride 0.9% 100 ML IVPB SCH (18:00)
--- NOTE | 2018-03-24 18:01 | PDOC.EVN ---
Event Note - Event Note Event Note: elevated LFTs, abn GB US with cholelithiasis , poss common duct stone?- consult GI
[2018-03-24] MEDS: Atorvastatin Calcium 20 MG TAB PO SCH (21:12)
[2018-03-24] MEDS: cefTRIAXone\\ROCEPHIN 2 GM in Sodium Chloride 0.9% 100 ML IVPB SCH (21:28)
[2018-03-24] MEDS: Acetaminophen 325 MG TAB PO PRN (22:07)
--- NOTE | 2018-03-25 03:49 | CON ---
DATE OF CONSULTATION: 03/24/2018 REASON FOR CONSULTATION: Elevation of liver profile and abnormal ultrasound. HISTORY OF PRESENT ILLNESS: Mr. Pacheco is an 87-year-old man who was admitted to the hospital 4 days ago after he presented with diffuse chest pain and was found to be in atrial flutter. He was cardioverted to sinus rhythm and has been seen by e marketing specialist. He has been on Eliquis 2.5 mg b.i.d. with the last dose at 9:00 this morning. The patient also has fairly advanced coronary artery disease, hypertension, hyperlipidemia, and initial acute renal insufficiency on admission that has since normalized with hydration. The patient denies having any further chest pain. He does report occasional migrating abdominal pain, but nothing localized to the epigastrium or upper abdominal area. He denies having any nausea or vomiting. There is no altered bowel function. There is no evidence of GI bleeding such as melena, hematochezia, rectal bleeding. His liver profile currently compared to when he was admitted on the showed persistent elevation of bilirubin that was increased from 3.3 up to 4.8, and ALT and AST were mildly elevated with alkaline phosphatase in the 200s range. Abdominal ultrasound performed showed distended gallbladder with gallstone in addition to common duct measuring 1.2 cm. His initial blood culture on admission did grow Klebsiella. Currently, he reports doing well without any specific GI complaint. PAST MEDICAL HISTORY: 1. Coronary artery disease. 2. Hyperlipidemia. 3. Hypertension. 4. History of CVA. 5. Status post bypass surgery. ALLERGIES: NONE. SOCIAL HISTORY: The patient denies any tobacco or alcohol usage. FAMILY HISTORY: Negative for any known GI problem, liver disease, or GI malignancy. CURRENT MEDICATIONS: Include; 1. Aspirin 81 mg daily. 2. Lipitor. 3. Ceftriaxone. 4. Plavix 75 mg daily. 5. Multaq 400 b.i.d. 6. Toprol 12.5 mg daily. 7. Eliquis 2.5 mg b.i.d., last dose at 9 o'clock this morning. REVIEW OF SYSTEMS: 10-point review of systems did not show any other pertinent positives or negatives. PHYSICAL EXAMINATION: VITAL SIGNS: Temperature is 98.5, blood pressure 159/67, pulse is 68. GENERAL: He is alert, in no distress. HEENT: Showed mildly icteric sclerae. Oropharynx clear. NECK: Supple. CV: Shows normal S1, S2. Regular rate and rhythm. CHEST: Shows normal breath sounds. ABDOMEN: Soft. No distention. No tympany. No tenderness elicited. There is no palpable mass or organomegaly. EXTREMITIES: Show no edema. LABORATORY DATA: Electrolytes within normal range. Creatinine is 0.86, GFR of 84. Bilirubin 4.8, AST 53, ALT 61, alkaline phosphatase 219. WBCs 8.6, hemoglobin 11.6, and platelet count of 61,000. Abdominal ultrasound showed distended gallbladder with gallstone in CBD of 1.2 cm. ASSESSMENT: 1. Cholelithiasis with dilated bile duct and elevation of liver profile raises possibility of choledocholithiasis. He did have one blood culture grew out Klebsiella raising possibility of early cholangitis. The patient appears to be stable and certainly not toxic at this point. 2. Atrial flutter, now in sinus rhythm. 3. Coronary artery disease. 4. Hypertension/hyperlipidemia. RECOMMENDATIONS: 1. Eliquis has been on hold. 2. Continue with aspirin and Plavix. 3. ERCP with possible sphincterotomy is recommended for tomorrow. I will confer with Dr. Stephenson in the morning prior to proceeding with ERCP. 4. Indication and risk not limited to bleeding, perforation, and possible pancreatitis were reviewed with the patient. Job ID: [id number]
[2018-03-25 06:05] LABS: ALT (SGPT) 47 U/L (8-55); AST (SGOT) 57 U/L (5-34); Albumin 2.3 g/dL (3.4-4.8); Alkaline Phosphatase 199 U/L (40-150); Anion Gap 12 mmol/L (10-20); BUN (Urea Nitrogen) 15 mg/dL (8.4-25.7); Bilirubin, Total 2.3 mg/dL (0.2-1.2); Calc. Creatinine Clearance 66 mL/min (70-130); Carbon Dioxide 22 mmol/L (23-31); Chloride 108 mmol/L (98-107); Estimated GFR-MDRD Greater than 90; Glucose 89 mg/dL (83-110); Potassium 3.7 mmol/L (3.5-5.1); Protein, Total 5.3 g/dL (5.8-8.1); Sodium 138 mmol/L (136-145)
--- NOTE | 2018-03-25 07:49 | PDOC.PN ---
- Subjective Encounter Start Date: 03/25/18 Encounter Start Time: 07:47 Subjective: feels better, no specific complaints - Objective Resuscitation Status - Order Detail: 03/21/18 03:17 Resuscitation Status Routine Resuscitation Status: FULL: Full Resuscitation Vital Signs & Weight: Vital Signs (12 hours) Temp Pulse Resp BP Pulse Ox 03/25/18 03:48 98 F 56 L 18 146/72 H 96 03/24/18 21:28 95 Weight Weight 153 lb 4.8 oz Most Recent Monitor Data Heart Rate from ECG 61 NIBP 159/75 NIBP BP-Mean 103 Respiration from ECG 22 SpO2 100 I&O: 03/24/18 03/25/18 03/26/18 06:59 06:59 06:59 Intake Total 985 1130 Output Total 775 875 Balance 210 255 Result Diagrams: 03/23/18 09:16 03/25/18 05:15 Phys Exam - Physical Examination Neck: no JVD Respiratory: clear to auscultation bilateral Cardiovascular: RRR, no significant murmur Gastrointestinal: soft, positive bowel sounds Musculoskeletal: no edema Dx/Plan (1) Atrial flutter Code(s): I48.92 - UNSPECIFIED ATRIAL FLUTTER Status: Acute Qualifiers: Atrial flutter type: typical Qualified Code(s): I48.3 - Typical atrial flutter (2) Hypotension Status: Resolved Qualifiers: Hypotension type: idiopathic hypotension Qualified Code(s): I95.0 - Idiopathic hypotension (3) UTI (urinary tract infection) Status: Acute Qualifiers: Urinary tract infection type: site unspecified Hematuria presence: without hematuria Qualified Code(s): N39.0 - Urinary tract infection, site not specified (4) Elevated troponin I level Code(s): R74.8 - ABNORMAL LEVELS OF OTHER SERUM ENZYMES Status: Acute (5) Chest pain Code(s): R07.9 - CHEST PAIN, UNSPECIFIED Status: Acute Qualifiers: Chest pain type: unspecified Qualified Code(s): R07.9 - Chest pain, unspecified (6) CAD (coronary artery disease) Code(s): I25.10 - ATHSCL HEART DISEASE OF [place] CORONARY ARTERY W/O ANG PCTRS Status: Chronic Qualifiers: Coronary Disease-Associated Artery/Lesion type: [place] artery [place] vs. transplanted heart: [place] heart Associated angina: angina presence unspecified Qualified Code(s): I25.10 - Atherosclerotic heart disease of [place] coronary artery without angina pectoris (7) Dyslipidemia Code(s): E78.5 - HYPERLIPIDEMIA, UNSPECIFIED Status: Chronic (8) HTN (hypertension) Code(s): I10 - ESSENTIAL (PRIMARY) HYPERTENSION Status: Chronic Qualifiers: Hypertension type: essential hypertension Qualified Code(s): I10 - Essential (primary) hypertension (9) Sepsis associated hypotension Code(s): A41.9 - SEPSIS, UNSPECIFIED ORGANISM; I95.9 - HYPOTENSION, UNSPECIFIED Status: Acute (10) Jaundice Code(s): R17 - UNSPECIFIED JAUNDICE Status: Acute (11) Cholangitis concurrent with and due to calculus of gallbladder Code(s): K83.09 - OTHER CHOLANGITIS; K80.20 - CALCULUS OF GALLBLADDER W/O CHOLECYSTITIS W/O OBSTRUCTION Status: Acute - Plan needs ERCP, off eliquis 24 hrs, on iv rocephin -: cont multaq, hold plavix -: discussed with Cardiology, GI * .
[2018-03-25 07:58] LABS: #Eosinphils 0.1 thou/uL (0.0-0.7); #Lymphocytes 1.4 thou/uL (1.20-3.40); #Monocytes 0.9 thou/uL (0.11-0.59); #Neutrophils 6.8 thou/uL (1.40-6.50); %Basophils 0.2 % (0.0-1.0); %Eosinophils 0.7 % (0.0-10.0); %Lymphocytes 14.9 % (21.0-51.0); %Monocytes 9.6 % (0.0-10.0); %Neutrophils 74.7 % (42.0-75.0); Hemoglobin 11.4 g/dL (14.0-18.0); Mean Corpuscular Hemoglobin 33.6 pg (27.0-31.0); Mean Platelet Volume 9.7 fL (7.4-10.4); Platelet Count 105 thou/uL (130-400); RBC Distribution Width 12.5 % (11.5-14.5); Red Blood Cell (RBC) Count 3.38 mill/uL (4.70-6.10); White Blood Cell (WBC) Count 9.1 thou/uL (4.8-10.8)
--- NOTE | 2018-03-25 08:04 | PDOC.CTH ---
Cardiology Progress Note - Subjective The pt seen and examined. No overnight events. No cardiac complaints. The pt denied pain to ABD, but mild cont. discomfort to his ABD. - Objective Vital Signs Temp Pulse Resp BP Pulse Ox 03/25/18 03:48 98 F 56 L 18 146/72 H 96 03/24/18 21:28 95 Weight 153 lb 4.8 oz 03/24/18 03/25/18 03/26/18 06:59 06:59 06:59 Intake Total 985 1130 Output Total 775 875 Balance 210 255 - Physical Examination General/Neuro: alert & oriented x3 Neck: no JVD present Lungs: CTA Heart: RRR Abdomen: soft Extremities: other: (No edema) - Telemetry Telemetry Rhythm: SB and SR 50-60s - Labs Result Diagrams: 03/25/18 05:14 03/25/18 05:15 Troponin/CKMB CK-MB (CK-2) 8.1 ng/mL (0-6.6) H* 03/21/18 07:19 Troponin I 0.216 ng/mL (< 0.028) H 03/21/18 07:19 - Assessment/Plan 1. New-onset Aflutter with RVR and S/p DCCV on 03/21/18 - No SVT/Afib/Aflutter event since 03/23/18; remains in SR/SA with nn Multaq, Metoprolol 12.5mg qd and Eliquis 2.5mg BID, which is on hold since at 2100 on for ERCP procedure by Dr Mills; [id number] Score is 7 (age, HTN, CHF, hx of CVA, Carotid artery disease). Not good candidate for ablation therapy due to his age and medical condition. Appreciate EP input. 2. CAD with hx of CABG and s/p LHC in 2014 with 50% stenosis in RCA, 50% in postlateral branch with EF 50-55% - stable; On BBlocker, ASA 81mg qd, and Plavix , which on hold from this AM for ERCP procedure. 3. Sepsis possible 2/2 Cholangitis and Klebsiella - On ABX IV; Plan for ERCP procedure; VS stable at this moment; managed by GI/PCP 4. SHAYLA - stable 5. Hyperlipidemia - on Statin, which is on hold for now 2/2 elevated LFT 6. Hx of CVA 7. Hx of prostate cancer 8. Hx of Carotid artery disease - stable MAR reviewed * Echo in 02/2018 showed EF 50-55%, grade I diastolic dysfunction, mildly dilated LA, mild TR and mod MR. * Holding Plavix, ASA, and Eliquis for possible 48hrs unless emergency. Review of Systems - Review of Systems Constitutional: reports: no symptoms reported EENTM: reports: no symptoms reported Respiratory: reports: no symptoms reported Cardiac (ROS): reports: no symptoms reported ABD/GI: reports: see HPI : reports: no symptoms reported Musculoskeletal: reports: no symptoms reported
[2018-03-25] MEDS: Dronedarone HCl 400 MG TAB PO SCH ×2 (08:21→17:31)
[2018-03-25] MEDS ORDERED: Glycopyrrolate 0.2 MG/ML 5 ML SYRINGE ONE (09:28)
[2018-03-25] MEDS ORDERED: Ondansetron PF 4 MG/2 ML Vial ONE (09:28)
[2018-03-25] MEDS ORDERED: PHENYLEPHRINE-NS 100 MCG/ML 10 ML SYRINGE ONE (09:28)
[2018-03-25] MEDS ORDERED: PROPOFOL 200 MG/20 ML VIAL ONE (09:28)
[2018-03-25] MEDS ORDERED: Levofloxacin 500 mg/D5W 100 ml Premix Bag ONE (12:10)
[2018-03-25] MEDS ORDERED: Indomethacin 50 MG SUPP ONE (13:11)
[2018-03-25] MEDS ORDERED: Iothalamate Meglumine 60% 50 ML VIAL FS ONE (13:11)
[2018-03-25] MEDS ORDERED: Promethazine HCl 25 MG/ML VIAL SLOW IVP PRN (15:06)
[2018-03-25] MEDS ORDERED: Promethazine HCl 25 MG/ML VIAL IM PRN (15:06)
[2018-03-25] MEDS ORDERED: Ondansetron HCl/PF 4 MG/2 ML Vial IVP PRN (15:06)
--- NOTE | 2018-03-25 17:32 | OP ---
DATE OF PROCEDURE: 03/25/2018 PROCEDURES: Endoscopic retrograde cholangiopancreatography with sphincterotomy and stone extraction. INDICATION FOR PROCEDURE: Choledocholithiasis. DESCRIPTION OF PROCEDURE: After the risks and benefits of the procedure were explained to the patient including risks of bleeding, infection, perforation, reactions to anesthesia, aspiration, pancreatitis and/or pain, informed consent was obtained. The patient was then taken to the endoscopy suite, where general anesthesia was administered with endotracheal tube intubation. Once the patient was adequately sedated and intubated, he was maneuvered into the prone position in preparation for the ERCP. Once in adequate position, the standard duodenoscope was introduced into the mouth with intubation of the esophagus, stomach, and proximal small intestine with the findings listed below. The patient tolerated the procedure well with no immediate perioperative complications. Upon completion of the procedure, the patient was extubated and transferred to PACU in satisfactory condition. EGD FINDINGS: Limited views were obtained of the esophagus, stomach and proximal small intestine, but of the mucosa visualized, normal-appearing mucosa was seen in both the esophagus, the duodenal bulb, and second portion of the duodenum. A small duodenal diverticulum was located near the ampulla within the second portion of the duodenum; however, increased patchy mucosal erythema was seen in the gastric cardia, fundus and proximal body without overt ulceration or erosions. There was no evidence of active bleeding as well. This was not intervened upon at the current time. ERCP FINDINGS: The duodenoscope was advanced to the second portion of the duodenum with successful identification of the ampulla of Vater. The ampulla of Vater was then successfully cannulated with a 5 mm sphincterotome with cholangiogram performed at that time, showing approximately three large filling defects within the common bile duct. The common bile duct measured approximately 1.2 to 1.5 cm in size. A generous sphincterotomy was then performed to allow for the passage of the stones within the distal common bile duct. Upon completion of the sphincterotomy, the sphincterotome was then exchanged. It was then traded for a balloon catheter using exchange technique over guidewire. Once the balloon was in adequate position, the balloon was advanced into the common bile duct and expanded to 1.2 cm in diameter with successive balloon sweep performed. Approximately, 3 black pigmented stones were successfully extracted from the common bile duct measuring anywhere between 6 and 9 mm in size. Upon successful extraction of the stones, a repeat cholangiogram was performed showing no additional filling defects within the common bile and common hepatic ducts with good filling of the intrahepatic tree as well. Upon removal of the balloon, adequate drainage was noted from the ampulla via the duodenoscope. All equipment was then removed from the patient and the patient was taken to PACU. IMPRESSION: Choledocholithiasis, status post sphincterotomy and successful balloon extraction of 3 black pigmented stones measuring 6 to 9 mm in size. RECOMMENDATIONS: 1. We will continue to trend LFTs to evaluate for improving labs. 2. Would continue to monitor clinically for increased abdominal pain. If experiencing increased abdominal pain in the post-ERCP period, would obtain a lipase for possible post-ERCP pancreatitis. 3. Would recommend surgical consultation during this admission for possible cholecystectomy in light of choledocholithiasis. 4. Can advance the patient's diet to clear liquid and continue to monitor. We will continue to follow. Please call with any questions. Job ID: [id number]
[2018-03-25] MEDS: cefTRIAXone\\ROCEPHIN 2 GM in Sodium Chloride 0.9% 100 ML IVPB SCH (20:24)
[2018-03-25] MEDS: Melatonin 3 MG TAB PO PRN (22:08)
[2018-03-26 05:25] LABS: #Lymphocytes 1.1 thou/uL (1.20-3.40); #Monocytes 0.5 thou/uL (0.11-0.59); #Neutrophils 6.5 thou/uL (1.40-6.50); %Basophils 0.1 % (0.0-1.0); %Eosinophils 0.5 % (0.0-10.0); %Lymphocytes 13.5 % (21.0-51.0); %Monocytes 5.7 % (0.0-10.0); %Neutrophils 80.2 % (42.0-75.0); Hemoglobin 11.4 g/dL (14.0-18.0); Mean Corpuscular HGB CONC 33.4 g/dL (32.0-36.0); Mean Corpuscular Hemoglobin 34.2 pg (27.0-31.0); Mean Platelet Volume 9.5 fL (7.4-10.4); Platelet Count 133 thou/uL (130-400); RBC Distribution Width 12.5 % (11.5-14.5); Red Blood Cell (RBC) Count 3.33 mill/uL (4.70-6.10); White Blood Cell (WBC) Count 8.1 thou/uL (4.8-10.8)
[2018-03-26 05:41] LABS: ALT (SGPT) 47 U/L (8-55); AST (SGOT) 59 U/L (5-34); Albumin 2.3 g/dL (3.4-4.8); Alkaline Phosphatase 199 U/L (40-150); Anion Gap 11 mmol/L (10-20); BUN (Urea Nitrogen) 17 mg/dL (8.4-25.7); Bilirubin, Total 1.9 mg/dL (0.2-1.2); Calc. Creatinine Clearance 65 mL/min (70-130); Calcium 8.1 mg/dL (7.8-10.44); Carbon Dioxide 24 mmol/L (23-31); Chloride 108 mmol/L (98-107); Estimated GFR-MDRD 90; Globulin 3.3 g/dL (2.4-3.5); Glucose 97 mg/dL (83-110); Potassium 3.8 mmol/L (3.5-5.1); Protein, Total 5.6 g/dL (5.8-8.1); Sodium 139 mmol/L (136-145)
[2018-03-26] MEDS: Dronedarone HCl 400 MG TAB PO SCH ×2 (10:09→17:36)
--- NOTE | 2018-03-26 11:55 | PDOC.CTH ---
<Rosa Aguirre - Last Filed: 03/26/18 11:56> Cardiology Progress Note - Subjective The pt seen and examined. No overnight events. No cardiac complaints. - Objective Vital Signs Temp Pulse Resp BP Pulse Ox 03/26/18 08:25 97.6 F 56 L 20 157/74 H 94 L 03/26/18 02:56 98.1 F 58 L 16 136/63 97 Weight 154 lb 12.8 oz 03/25/18 03/26/18 03/27/18 06:59 06:59 06:59 Intake Total 1130 450 Output Total 875 400 Balance 255 50 - Physical Examination General/Neuro: alert & oriented x3 Neck: no JVD present Lungs: CTA Heart: RRR Abdomen: soft Extremities: other: (no edema) - Telemetry Telemetry Rhythm: SR - Labs Result Diagrams: 03/26/18 05:06 03/26/18 05:06 Troponin/CKMB CK-MB (CK-2) 8.1 ng/mL (0-6.6) H* 03/21/18 07:19 Troponin I 0.216 ng/mL (< 0.028) H 03/21/18 07:19 - Assessment/Plan 1. New-onset Aflutter with RVR and S/p DCCV on 03/21/18 - No SVT/Afib/Aflutter event since 03/23/18; remains in SR/SA with nn Multaq, Metoprolol 12.5mg qd and Eliquis 2.5mg BID, which is on hold since at 2100 on for S/p ERCP procedure. [id number] Score is 7 (age, HTN, CHF, hx of CVA, Carotid artery disease). Not good candidate for ablation therapy due to his age and medical condition. Appreciate EP input. 2. CAD with hx of CABG and s/p LHC in 2014 with 50% stenosis in RCA, 50% in postlateral branch with EF 50-55% - stable; On BBlocker, ASA 81mg qd, and Plavix , which on hold for S/p ERCP procedure on 03/25/18. 3. Sepsis possible 2/2 Cholangitis and Klebsiella - On ABX IV; Plan for ERCP procedure; VS stable at this moment; managed by GI/PCP 4. SHAYLA - stable 5. Hyperlipidemia - on Statin, which is on hold for now 2/2 elevated LFT 6. Hx of CVA 7. Hx of prostate cancer 8. Hx of Carotid artery disease - stable MAR reviewed * Echo in 02/2018 showed EF 50-55%, grade I diastolic dysfunction, mildly dilated LA, mild TR and mod MR. Review of Systems - Review of Systems Constitutional: reports: no symptoms reported EENTM: reports: no symptoms reported Respiratory: reports: no symptoms reported Cardiac (ROS): reports: no symptoms reported ABD/GI: reports: no symptoms reported : reports: no symptoms reported Musculoskeletal: reports: no symptoms reported <Vivian Stephenson - Last Filed: 03/26/18 14:48> Cardiology Progress Note - Objective Vital Signs Temp Pulse Resp BP Pulse Ox 03/26/18 08:25 97.6 F 56 L 20 157/74 H 94 L 03/26/18 02:56 98.1 F 58 L 16 136/63 97 Weight 154 lb 12.8 oz 03/25/18 03/26/18 03/27/18 06:59 06:59 06:59 Intake Total 1130 450 Output Total 875 400 Balance 255 50 - Labs Result Diagrams: 03/26/18 05:06 03/26/18 05:06 Troponin/CKMB CK-MB (CK-2) 8.1 ng/mL (0-6.6) H* 03/21/18 07:19 Troponin I 0.216 ng/mL (< 0.028) H 03/21/18 07:19 - Assessment/Plan Pt. seen and eval. by me. I agree with the A/P by the [employer]CHNICIAN.Chest clear. RRR. Plan for cholecystectomy.
--- NOTE | 2018-03-26 13:15 | PDOC.PN ---
- Subjective Encounter Start Date: 03/26/18 Encounter Start Time: 07:40 Pt seen for followup re: choledocholithiasis. Says he feels better. - Objective Resuscitation Status - Order Detail: 03/21/18 03:17 Resuscitation Status Routine Resuscitation Status: FULL: Full Resuscitation MAR Reviewed: Yes Vital Signs & Weight: Vital Signs (12 hours) Temp Pulse Resp BP Pulse Ox 03/26/18 08:25 97.6 F 56 L 20 157/74 H 94 L 03/26/18 02:56 98.1 F 58 L 16 136/63 97 Weight Weight 154 lb 12.8 oz Most Recent Monitor Data Heart Rate from ECG 61 NIBP 159/75 NIBP BP-Mean 103 Respiration from ECG 22 SpO2 100 I&O: 03/25/18 03/26/18 03/27/18 06:59 06:59 06:59 Intake Total 1130 450 Output Total 875 400 Balance 255 50 Result Diagrams: 03/26/18 05:06 03/26/18 05:06 EKG Reviewed by me: Yes (Tele: sinus bradycardia) Phys Exam - Physical Examination Constitutional: NAD scleral icterus Neck: supple Respiratory: clear to auscultation bilateral S1, s2, reg, polo Gastrointestinal: soft Neurological: moves all 4 limbs Psychiatric: normal affect Dx/Plan (1) Choledocholithiasis Code(s): K80.50 - CALCULUS OF BILE DUCT W/O CHOLANGITIS OR CHOLECYST W/O OBST Status: Acute Comment: s/p ERCP with removal of gall stones (2) Dyslipidemia Code(s): E78.5 - HYPERLIPIDEMIA, UNSPECIFIED Status: Chronic Comment: resume Zocor when LFTs improve (3) HTN (hypertension) Code(s): I10 - ESSENTIAL (PRIMARY) HYPERTENSION Status: Chronic Qualifiers: Hypertension type: essential hypertension Qualified Code(s): I10 - Essential (primary) hypertension Comment: monitor vital signs, titrate antihypertensives as needed (4) Atrial flutter Code(s): I48.92 - UNSPECIFIED ATRIAL FLUTTER Status: Resolved Qualifiers: Atrial flutter type: typical Qualified Code(s): I48.3 - Typical atrial flutter Comment: pt is on Multaq - Plan * . Review of Systems - Review of Systems Cardiovascular: negative: chest pain, palpitations, orthopnea, paroxysmal nocturnal dyspnea, edema, light headedness Gastrointestinal: negative: Nausea, Vomiting, Abdominal Pain, Diarrhea, Constipation, Melena, Hematochezia - Medications/Allergies Allergies/Adverse Reactions: Allergies Allergy/AdvReac Type Severity Reaction Status Date / Time No Known Drug Allergies Allergy Verified 03/18/18 06:33 Medications: Current Medications Acetaminophen (Tylenol) 650 mg PO Q4H PRN PRN Reason: Headache/Fever/Mild Pain (1-3) Last Admin: 03/24/18 22:07 Dose: 650 mg Al Hydroxide/Mg Hydroxide (Maalox) 30 ml PO Q4H PRN PRN Reason: Indigestion Dronedarone (Multaq) 400 mg PO BID-[facility] Last Admin: 03/26/18 10:09 Dose: 400 mg Hydralazine HCl (Apresoline) 10 mg SLOW IVP Q4HR PRN PRN Reason: Blood Pressure Last Admin: 03/22/18 16:26 Dose: 10 mg Ceftriaxone Sodium 2 gm/ (Sodium Chloride) 100 mls @ 200 mls/hr IVPB Q24HR [facility] Last Admin: 03/25/18 20:24 Dose: 100 mls Melatonin (Melatonin) 3 mg PO HSPRN PRN PRN Reason: Insomnia Last Admin: 03/25/18 22:08 Dose: 3 mg Metoprolol Succinate (Toprol Xl) 12.5 mg PO DAILY [facility] Last Admin: 03/26/18 10:09 Dose: 12.5 mg Nitroglycerin (Nitrostat) 0.4 mg PO Q5MIN PRN PRN Reason: Chest Pain Last Admin: 03/22/18 21:18 Dose: 0.4 mg Ondansetron HCl (Zofran) 4 mg IVP Q6H PRN PRN Reason: Nausea/Vomiting Last Admin: 03/25/18 17:33 Dose: 4 mg Sodium Chloride (Flush - Normal Saline) 10 ml IVF Q12HR [facility] Last Admin: 03/26/18 10:10 Dose: 10 ml Sodium Chloride (Flush - Normal Saline) 10 ml IVF PRN PRN PRN Reason: Saline Flush Last Admin: 03/24/18 21:29 Dose: 10 ml Tramadol HCl (Ultram) 25 mg PO Q12H PRN PRN Reason: Moderate to Severe Pain (6-10) Last Admin: 03/22/18 19:58 Dose: 25 mg
--- NOTE | 2018-03-26 17:08 | RAD ---
ERCP 03/26/18 HISTORY: Choledocholithiasis. COMPARISON: None. FINDINGS: Intraprocedural fluoroscopy is provided. Total of eight images are submitted for interpretation. Initial images demonstrate retrograde opacification of the common bile duct. Multiple filling defects are identified which are presumed to be stones. Subsequent images demonstrate resolution of the joselito ling defects. Contrast is noted in the small bowel. Central intrahepatic biliary system is unremarkable. IMPRESSION: Fluoroscopy as above. POS: FLACA
--- NOTE | 2018-03-26 19:11 | PRG ---
DATE OF SERVICE: 03/26/2018 SUBJECTIVE: The patient feels fine. He is eating. There is no nausea or vomiting. He denies any abdominal pain. PHYSICAL EXAMINATION: VITAL SIGNS: Temperature is 98.3, blood pressure 151/67, pulse 66. GENERAL: He is alert, in no distress. HEENT: Exam shows anicteric sclerae. CV: Exam shows normal S1, S2. Regular rate and rhythm. CHEST: Exam shows breath sounds. ABDOMEN: Soft, nontender. No palpable mass or organomegaly. He has active bowel sounds. EXTREMITIES: Exam shows no edema. LABORATORY: WBCs 8.1, hemoglobin 11.4, platelet count of 133. Bilirubin is 1.9 down from 4.8, AST 59, ALT 47, alkaline phosphatase 199. ASSESSMENT: 1. Choledocholithiasis with 3 large stones, status post ERCP with sphincterotomy and stone extraction by Dr. Chris yesterday. Clinically doing very well with good biliary drainage. 2. LFT is normalizing. No evidence of cholangitis with ERCP as he had very clear bile. 3. Atrial flutter, now in sinus rhythm after cardioversion. 4. Coronary artery disease. 5. History of Klebsiella on blood culture on admission. Repeat blood culture negative at 48 hours x2. RECOMMENDATIONS: 1. Doing well from GI standpoint. No other diagnostic test is planned. At this point, he has adequate drainage. I do not think a cholecystectomy is necessary in view of his cardiac situation. The patient is on ceftriaxone currently, which can be discontinued as his most recent blood cultures are negative, and he has good drainage with clear bile on his cholangiogram. 2. GI will sign off, please call if needed. Job ID: [id number]
[2018-03-26] MEDS: cefTRIAXone\\ROCEPHIN 2 GM in Sodium Chloride 0.9% 100 ML IVPB SCH (21:10)
[2018-03-26] MEDS: Melatonin 3 MG TAB PO PRN (21:10)
[2018-03-27] MEDS: Dronedarone HCl 400 MG TAB PO SCH ×2 (09:02→17:36)
[2018-03-27 09:05] LABS: #Lymphocytes 1.1 thou/uL (1.20-3.40); #Monocytes 0.4 thou/uL (0.11-0.59); #Neutrophils 4.8 thou/uL (1.40-6.50); %Basophils 0.4 % (0.0-1.0); %Eosinophils 0.4 % (0.0-10.0); %Lymphocytes 17.1 % (21.0-51.0); %Neutrophils 76.1 % (42.0-75.0); Hemoglobin 12.2 g/dL (14.0-18.0); Mean Corpuscular HGB CONC 32.8 g/dL (32.0-36.0); Mean Corpuscular Hemoglobin 33.5 pg (27.0-31.0); Mean Platelet Volume 8.8 fL (7.4-10.4); Platelet Count 167 thou/uL (130-400); RBC Distribution Width 12.5 % (11.5-14.5); Red Blood Cell (RBC) Count 3.62 mill/uL (4.70-6.10); White Blood Cell (WBC) Count 6.4 thou/uL (4.8-10.8)
[2018-03-27 09:26] LABS: ALT (SGPT) 55 U/L (8-55); AST (SGOT) 69 U/L (5-34); Albumin 2.7 g/dL (3.4-4.8); Alkaline Phosphatase 221 U/L (40-150); Anion Gap 11 mmol/L (10-20); BUN (Urea Nitrogen) 11 mg/dL (8.4-25.7); Bilirubin, Total 2.2 mg/dL (0.2-1.2); Calc. Creatinine Clearance 68 mL/min (70-130); Calcium 8.4 mg/dL (7.8-10.44); Carbon Dioxide 27 mmol/L (23-31); Chloride 105 mmol/L (98-107); Estimated GFR-MDRD Greater than 90; Globulin 3.6 g/dL (2.4-3.5); Glucose 130 mg/dL (83-110); Potassium 3.7 mmol/L (3.5-5.1); Protein, Total 6.3 g/dL (5.8-8.1); Sodium 139 mmol/L (136-145)
--- NOTE | 2018-03-27 11:49 | CON ---
DATE OF CONSULTATION: 03/27/2018 CHIEF COMPLAINT/REASON FOR CONSULT: Cholelithiasis, previous history of choledocholithiasis, status post ERCP. BRIEF HISTORY: The patient is an 87-year-old male with a history of coronary artery disease, who presents after the ERCP and sphincterotomy. He denies abdominal pain, nausea, and vomiting currently. PAST MEDICAL HISTORY: Includes coronary artery disease, hyperlipidemia, hypertension, status post atrial fibrillation with RVR. PAST SURGICAL HISTORY: Appendectomy, prostatectomy, and CABG. SOCIAL HISTORY: No smoking, alcohol or other drugs. REVIEW OF SYSTEMS: Ten-system review of system otherwise negative unless described above. PHYSICAL EXAMINATION: HEENT: Sclerae anicteric. Oropharynx clear. NECK: No lymphadenopathy. CHEST: Clear. HEART: Regular rate and rhythm. ABDOMEN: Soft, nontender, nondistended. LABORATORY DATA: White blood cell count of 6, hemoglobin 12, and platelets count is 167. Sodium 139, potassium 3.7, creatinine is 0.78. Total bilirubin is 2.2. ASSESSMENT: History of choledocholithiasis, status post endoscopic retrograde cholangiopancreatography and sphincterotomy. LFTs trending down. PLAN: Please see Dr. Mills's note in light of his significant coronary artery disease and advanced age. The patient is with gallstones, status post ERCP, tend to do quite well with recurrence of biliary obstruction is unlikely. For that reason, I recommend observation at this time only and not put him at the risk for general anesthetic. Discussed that with the patient. Please call, if needed. Job ID: [id number]
--- NOTE | 2018-03-27 14:38 | PDOC.PN ---
- Subjective Encounter Start Date: 03/27/18 Encounter Start Time: 07:40 Pt seen for followup re: choledocholithiasis. Denies abdo pain, fevers or chills. - Objective Resuscitation Status - Order Detail: 03/21/18 03:17 Resuscitation Status Routine Resuscitation Status: FULL: Full Resuscitation MAR Reviewed: Yes Vital Signs & Weight: Vital Signs (12 hours) Temp Pulse Resp BP BP Pulse Ox 03/27/18 12:33 98.2 F 56 L 18 140/67 94 L 03/27/18 08:21 98.1 F 57 L 18 156/73 H 94 L 03/27/18 08:20 94 L 03/27/18 04:00 98.1 F 54 L 22 H 149/70 H 99 Weight Weight 155 lb Most Recent Monitor Data Heart Rate from ECG 61 NIBP 159/75 NIBP BP-Mean 103 Respiration from ECG 22 SpO2 100 I&O: 03/26/18 03/27/18 03/28/18 06:59 06:59 06:59 Intake Total 450 300 Output Total 400 325 Balance 50 -25 Result Diagrams: 03/27/18 08:57 03/27/18 08:57 EKG Reviewed by me: Yes (Tele: NSR) Phys Exam - Physical Examination Constitutional: NAD HEENT: moist MMs Neck: supple Respiratory: clear to auscultation bilateral Cardiovascular: RRR Gastrointestinal: soft Neurological: moves all 4 limbs Psychiatric: normal affect Dx/Plan (1) Choledocholithiasis Code(s): K80.50 - CALCULUS OF BILE DUCT W/O CHOLANGITIS OR CHOLECYST W/O OBST Status: Acute Comment: s/p ERCP with removal of gall stones; will discontinue antibiotics and observe. (2) Dyslipidemia Code(s): E78.5 - HYPERLIPIDEMIA, UNSPECIFIED Status: Chronic Comment: Zocor on hold (3) HTN (hypertension) Code(s): I10 - ESSENTIAL (PRIMARY) HYPERTENSION Status: Chronic Qualifiers: Hypertension type: essential hypertension Qualified Code(s): I10 - Essential (primary) hypertension Comment: Improved (4) Atrial flutter Code(s): I48.92 - UNSPECIFIED ATRIAL FLUTTER Status: Resolved Qualifiers: Atrial flutter type: typical Qualified Code(s): I48.3 - Typical atrial flutter Comment: continue Multaq - Plan * . Review of Systems - Review of Systems Cardiovascular: negative: chest pain, palpitations, orthopnea, paroxysmal nocturnal dyspnea, edema, light headedness Gastrointestinal: negative: Nausea, Vomiting, Abdominal Pain, Diarrhea, Constipation, Melena, Hematochezia - Medications/Allergies Allergies/Adverse Reactions: Allergies Allergy/AdvReac Type Severity Reaction Status Date / Time No Known Drug Allergies Allergy Verified 03/18/18 06:33 Medications: Current Medications Acetaminophen (Tylenol) 650 mg PO Q4H PRN PRN Reason: Headache/Fever/Mild Pain (1-3) Last Admin: 03/24/18 22:07 Dose: 650 mg Al Hydroxide/Mg Hydroxide (Maalox) 30 ml PO Q4H PRN PRN Reason: Indigestion Dronedarone (Multaq) 400 mg PO BID-[facility] Last Admin: 03/27/18 09:02 Dose: 400 mg Hydralazine HCl (Apresoline) 10 mg SLOW IVP Q4HR PRN PRN Reason: Blood Pressure Last Admin: 03/22/18 16:26 Dose: 10 mg Melatonin (Melatonin) 3 mg PO HSPRN PRN PRN Reason: Insomnia Last Admin: 03/26/18 21:10 Dose: 3 mg Metoprolol Succinate (Toprol Xl) 12.5 mg PO DAILY [facility] Last Admin: 03/27/18 09:02 Dose: 12.5 mg Nitroglycerin (Nitrostat) 0.4 mg PO Q5MIN PRN PRN Reason: Chest Pain Last Admin: 03/22/18 21:18 Dose: 0.4 mg Ondansetron HCl (Zofran) 4 mg IVP Q6H PRN PRN Reason: Nausea/Vomiting Last Admin: 03/25/18 17:33 Dose: 4 mg Sodium Chloride (Flush - Normal Saline) 10 ml IVF Q12HR [facility] Last Admin: 03/27/18 09:03 Dose: 10 ml Sodium Chloride (Flush - Normal Saline) 10 ml IVF PRN PRN PRN Reason: Saline Flush Last Admin: 03/24/18 21:29 Dose: 10 ml Tramadol HCl (Ultram) 25 mg PO Q12H PRN PRN Reason: Moderate to Severe Pain (6-10) Last Admin: 03/22/18 19:58 Dose: 25 mg
[2018-03-28 05:28] LABS: #Basophils 0.1 thou/uL (0.0-0.2); #Eosinphils 0.1 thou/uL (0.0-0.7); #Lymphocytes 1.1 thou/uL (1.20-3.40); #Monocytes 0.6 thou/uL (0.11-0.59); #Neutrophils 4.9 thou/uL (1.40-6.50); %Basophils 0.9 % (0.0-1.0); %Eosinophils 0.8 % (0.0-10.0); %Monocytes 9.2 % (0.0-10.0); %Neutrophils 73.1 % (42.0-75.0); Mean Corpuscular HGB CONC 33.4 g/dL (32.0-36.0); Mean Corpuscular Hemoglobin 34.1 pg (27.0-31.0); Mean Platelet Volume 9.1 fL (7.4-10.4); Platelet Count 170 thou/uL (130-400); RBC Distribution Width 12.4 % (11.5-14.5); Red Blood Cell (RBC) Count 3.22 mill/uL (4.70-6.10); White Blood Cell (WBC) Count 6.7 thou/uL (4.8-10.8)
[2018-03-28 05:42] LABS: ALT (SGPT) 47 U/L (8-55); AST (SGOT) 58 U/L (5-34); Albumin 2.5 g/dL (3.4-4.8); Alkaline Phosphatase 196 U/L (40-150); Anion Gap 10 mmol/L (10-20); BUN (Urea Nitrogen) 9 mg/dL (8.4-25.7); Bilirubin, Total 2.1 mg/dL (0.2-1.2); Calc. Creatinine Clearance 73 mL/min (70-130); Calcium 8.1 mg/dL (7.8-10.44); Carbon Dioxide 26 mmol/L (23-31); Chloride 102 mmol/L (98-107); Estimated GFR-MDRD Greater than 90; Globulin 3.2 g/dL (2.4-3.5); Glucose 98 mg/dL (83-110); Potassium 3.8 mmol/L (3.5-5.1); Protein, Total 5.7 g/dL (5.8-8.1); Sodium 134 mmol/L (136-145)
[2018-03-28] MEDS: Dronedarone HCl 400 MG TAB PO SCH ×2 (09:06→18:01)
--- NOTE | 2018-03-28 14:03 | PDOC.PN ---
- Subjective Encounter Start Date: 03/28/18 Encounter Start Time: 07:20 Pt seen for followup re: choledocholithiasis. Feels better. - Objective Resuscitation Status - Order Detail: 03/21/18 03:17 Resuscitation Status Routine Resuscitation Status: FULL: Full Resuscitation MAR Reviewed: Yes Vital Signs & Weight: Vital Signs (12 hours) Temp Pulse Resp BP Pulse Ox 03/28/18 07:25 97.9 F 52 L 20 160/74 H 93 L 03/28/18 04:00 98.2 F 58 L 16 151/70 H 94 L Weight Weight 148 lb Most Recent Monitor Data Heart Rate from ECG 61 NIBP 159/75 NIBP BP-Mean 103 Respiration from ECG 22 SpO2 100 I&O: 03/27/18 03/28/18 03/29/18 06:59 06:59 06:59 Intake Total 300 600 Output Total 325 1150 Balance -25 -550 Result Diagrams: 03/28/18 04:21 03/28/18 04:21 EKG Reviewed by me: Yes (Tele: sinus bradycardia) Phys Exam - Physical Examination Constitutional: NAD HEENT: moist MMs Neck: supple Respiratory: clear to auscultation bilateral Cardiovascular: RRR Gastrointestinal: soft Neurological: moves all 4 limbs Psychiatric: normal affect Dx/Plan (1) Choledocholithiasis Code(s): K80.50 - CALCULUS OF BILE DUCT W/O CHOLANGITIS OR CHOLECYST W/O OBST Status: Acute Comment: s/p ERCP with removal of gall stones (2) Dyslipidemia Code(s): E78.5 - HYPERLIPIDEMIA, UNSPECIFIED Status: Chronic Comment: continue to hold Zocor (3) HTN (hypertension) Code(s): I10 - ESSENTIAL (PRIMARY) HYPERTENSION Status: Chronic Qualifiers: Hypertension type: essential hypertension Qualified Code(s): I10 - Essential (primary) hypertension Comment: Improved (4) Atrial flutter Code(s): I48.92 - UNSPECIFIED ATRIAL FLUTTER Status: Resolved Qualifiers: Atrial flutter type: typical Qualified Code(s): I48.3 - Typical atrial flutter Comment: on Multaq - Plan * . Review of Systems - Review of Systems Cardiovascular: negative: chest pain, palpitations, orthopnea, paroxysmal nocturnal dyspnea, edema, light headedness Gastrointestinal: negative: Nausea, Vomiting, Abdominal Pain, Diarrhea, Constipation, Melena, Hematochezia - Medications/Allergies Allergies/Adverse Reactions: Allergies Allergy/AdvReac Type Severity Reaction Status Date / Time No Known Drug Allergies Allergy Verified 03/18/18 06:33 Medications: Current Medications Acetaminophen (Tylenol) 650 mg PO Q4H PRN PRN Reason: Headache/Fever/Mild Pain (1-3) Last Admin: 03/24/18 22:07 Dose: 650 mg Al Hydroxide/Mg Hydroxide (Maalox) 30 ml PO Q4H PRN PRN Reason: Indigestion Dronedarone (Multaq) 400 mg PO BID-[facility] Last Admin: 03/28/18 09:06 Dose: 400 mg Hydralazine HCl (Apresoline) 10 mg SLOW IVP Q4HR PRN PRN Reason: Blood Pressure Last Admin: 03/22/18 16:26 Dose: 10 mg Melatonin (Melatonin) 3 mg PO HSPRN PRN PRN Reason: Insomnia Last Admin: 03/26/18 21:10 Dose: 3 mg Metoprolol Succinate (Toprol Xl) 12.5 mg PO DAILY [facility] Last Admin: 03/28/18 09:03 Dose: 12.5 mg Nitroglycerin (Nitrostat) 0.4 mg PO Q5MIN PRN PRN Reason: Chest Pain Last Admin: 03/22/18 21:18 Dose: 0.4 mg Ondansetron HCl (Zofran) 4 mg IVP Q6H PRN PRN Reason: Nausea/Vomiting Last Admin: 03/25/18 17:33 Dose: 4 mg Sodium Chloride (Flush - Normal Saline) 10 ml IVF Q12HR [facility] Last Admin: 03/28/18 09:06 Dose: 10 ml Sodium Chloride (Flush - Normal Saline) 10 ml IVF PRN PRN PRN Reason: Saline Flush Last Admin: 03/24/18 21:29 Dose: 10 ml Tramadol HCl (Ultram) 25 mg PO Q12H PRN PRN Reason: Moderate to Severe Pain (6-10) Last Admin: 03/22/18 19:58 Dose: 25 mg
[2018-03-29 06:23] LABS: #Lymphocytes 1.1 thou/uL (1.20-3.40); #Monocytes 0.6 thou/uL (0.11-0.59); #Neutrophils 4.4 thou/uL (1.40-6.50); %Basophils 0.3 % (0.0-1.0); %Eosinophils 0.7 % (0.0-10.0); %Lymphocytes 17.8 % (21.0-51.0); %Monocytes 9.2 % (0.0-10.0); Hemoglobin 11.2 g/dL (14.0-18.0); Mean Corpuscular HGB CONC 33.8 g/dL (32.0-36.0); Mean Corpuscular Hemoglobin 34.3 pg (27.0-31.0); Platelet Count 196 thou/uL (130-400); RBC Distribution Width 12.3 % (11.5-14.5); Red Blood Cell (RBC) Count 3.26 mill/uL (4.70-6.10); White Blood Cell (WBC) Count 6.1 thou/uL (4.8-10.8)
[2018-03-29 06:46] LABS: ALT (SGPT) 45 U/L (8-55); AST (SGOT) 59 U/L (5-34); Albumin 2.4 g/dL (3.4-4.8); Alkaline Phosphatase 193 U/L (40-150); Anion Gap 10 mmol/L (10-20); BUN (Urea Nitrogen) 9 mg/dL (8.4-25.7); Bilirubin, Total 2.3 mg/dL (0.2-1.2); Calc. Creatinine Clearance 71 mL/min (70-130); Calcium 8.1 mg/dL (7.8-10.44); Carbon Dioxide 24 mmol/L (23-31); Chloride 102 mmol/L (98-107); Estimated GFR-MDRD Greater than 90; Glucose 100 mg/dL (83-110); Potassium 4.3 mmol/L (3.5-5.1); Protein, Total 6.4 g/dL (5.8-8.1); Sodium 132 mmol/L (136-145)
--- NOTE | 2018-03-29 08:44 | PDOC.CTH ---
<Rosa Aguirre - Last Filed: 03/29/18 08:46> Cardiology Progress Note - Subjective The pt seen and examined. No overnight events. No cardiac complaints. - Objective Vital Signs Temp Pulse Resp BP Pulse Ox 03/29/18 04:00 97.8 F 52 L 20 142/62 H 95 Weight 148 lb 03/28/18 03/29/18 03/30/18 06:59 06:59 06:59 Intake Total 600 480 Output Total 1150 600 Balance -550 -120 - Physical Examination General/Neuro: alert & oriented x3 Neck: no JVD present Lungs: CTA Heart: RRR Abdomen: soft Extremities: other: (No edema) - Telemetry Telemetry Rhythm: SR 50-60s - Labs Result Diagrams: 03/29/18 06:05 03/29/18 06:05 Troponin/CKMB CK-MB (CK-2) 8.1 ng/mL (0-6.6) H* 03/21/18 07:19 Troponin I 0.216 ng/mL (< 0.028) H 03/21/18 07:19 - Assessment/Plan 1. New-onset Aflutter with RVR and S/p DCCV on 03/21/18 - No SVT/Afib/Aflutter event since 03/23/18; remains in SR/SA with on Multaq, Metoprolol 12.5mg qd and Eliquis 2.5mg BID, which will be resumed when GI is ok. [id number] Score is 7 (age, HTN, CHF, hx of CVA, Carotid artery disease). Not good candidate for ablation therapy due to his age and medical condition. Appreciate EP input. 2. CAD with hx of CABG and s/p LHC in 2014 with 50% stenosis in RCA, 50% in postlateral branch with EF 50-55% - stable; On BBlocker, ASA 81mg qd, and Plavix , which will be resumed when GI is ok. 3. Sepsis possible 2/2 Cholangitis and Klebsiella - On ABX IV; Plan for ERCP procedure; VS stable at this moment; managed by GI/PCP 4. SHAYLA - stable 5. Hyperlipidemia - on Statin, which is on hold for now 2/2 elevated LFT 6. Hx of CVA 7. Hx of prostate cancer 8. Hx of Carotid artery disease - stable 9. Bradycardia - Decrease Metoprolol 12.5mg from 1 tab to 1/2 tab. MAR reviewed * Echo in 02/2018 showed EF 50-55%, grade I diastolic dysfunction, mildly dilated LA, mild TR and mod MR. * Eliquis 2.5mg BID, Plavix 75mg qd, and ASA 81mg qd will be resumed when GI is ok. Review of Systems - Review of Systems Constitutional: reports: no symptoms reported EENTM: reports: no symptoms reported Respiratory: reports: no symptoms reported Cardiac (ROS): reports: no symptoms reported ABD/GI: reports: no symptoms reported : reports: no symptoms reported Musculoskeletal: reports: no symptoms reported <Vivian Stephenson - Last Filed: 03/29/18 18:41> Cardiology Progress Note - Objective Vital Signs Temp Pulse Resp BP Pulse Ox 03/29/18 16:00 98.7 F 51 L 17 137/63 94 L 03/29/18 12:00 97.1 F L 54 L 18 122/68 95 03/29/18 08:00 97.5 F L 53 L 19 118/62 94 L Weight 148 lb 03/28/18 03/29/18 03/30/18 06:59 06:59 06:59 Intake Total 600 480 540 Output Total 1150 600 550 Balance -550 -120 -10 - Labs Result Diagrams: 03/29/18 06:05 03/29/18 06:05 Troponin/CKMB CK-MB (CK-2) 8.1 ng/mL (0-6.6) H* 03/21/18 07:19 Troponin I 0.216 ng/mL (< 0.028) H 03/21/18 07:19 - Assessment/Plan pt. seen and eval. by me. I agree with the A/P by the EDGER HAND. Chest clear. RRR.
[2018-03-29] MEDS: Dronedarone HCl 400 MG TAB PO SCH ×2 (09:33→17:49)
[2018-03-29 16:15] VITALS: BP 137/63; TEMP 98.7
--- NOTE | 2018-03-29 17:09 | PDOC.PN ---
- Subjective Encounter Start Date: 03/29/18 Encounter Start Time: 11:00 Pt seen for followup re: choledocholithiasis. Denies any complaints. - Objective Resuscitation Status - Order Detail: 03/21/18 03:17 Resuscitation Status Routine Resuscitation Status: FULL: Full Resuscitation MAR Reviewed: Yes Vital Signs & Weight: Vital Signs (12 hours) Temp Pulse Resp BP Pulse Ox 03/29/18 16:00 98.7 F 51 L 17 137/63 94 L 03/29/18 12:00 97.1 F L 54 L 18 122/68 95 03/29/18 08:00 97.5 F L 53 L 19 118/62 94 L Weight Weight 148 lb Most Recent Monitor Data Heart Rate from ECG 61 NIBP 159/75 NIBP BP-Mean 103 Respiration from ECG 22 SpO2 100 I&O: 03/28/18 03/29/18 03/30/18 06:59 06:59 06:59 Intake Total 600 480 Output Total 1150 600 Balance -550 -120 Result Diagrams: 03/29/18 06:05 03/29/18 06:05 EKG Reviewed by me: Yes (Tele: NSR) Phys Exam - Physical Examination Constitutional: NAD HEENT: moist MMs Neck: supple Respiratory: clear to auscultation bilateral Cardiovascular: RRR Gastrointestinal: soft Neurological: moves all 4 limbs Psychiatric: normal affect Dx/Plan (1) Choledocholithiasis Code(s): K80.50 - CALCULUS OF BILE DUCT W/O CHOLANGITIS OR CHOLECYST W/O OBST Status: Acute Comment: s/p ERCP with gall stone removal (2) Dyslipidemia Code(s): E78.5 - HYPERLIPIDEMIA, UNSPECIFIED Status: Chronic Comment: Zocor on hold (3) HTN (hypertension) Code(s): I10 - ESSENTIAL (PRIMARY) HYPERTENSION Status: Chronic Qualifiers: Hypertension type: essential hypertension Qualified Code(s): I10 - Essential (primary) hypertension Comment: Improved (4) Atrial flutter Code(s): I48.92 - UNSPECIFIED ATRIAL FLUTTER Status: Resolved Qualifiers: Atrial flutter type: typical Qualified Code(s): I48.3 - Typical atrial flutter Comment: continue Multaq - Plan * . Review of Systems - Review of Systems Cardiovascular: negative: chest pain, palpitations, orthopnea, paroxysmal nocturnal dyspnea, edema, light headedness Gastrointestinal: negative: Nausea, Vomiting, Abdominal Pain, Diarrhea, Constipation, Melena, Hematochezia - Medications/Allergies Allergies/Adverse Reactions: Allergies Allergy/AdvReac Type Severity Reaction Status Date / Time No Known Drug Allergies Allergy Verified 03/18/18 06:33 Medications: Current Medications Acetaminophen (Tylenol) 650 mg PO Q4H PRN PRN Reason: Headache/Fever/Mild Pain (1-3) Last Admin: 03/24/18 22:07 Dose: 650 mg Al Hydroxide/Mg Hydroxide (Maalox) 30 ml PO Q4H PRN PRN Reason: Indigestion Dronedarone (Multaq) 400 mg PO BID-[facility] Last Admin: 03/29/18 09:33 Dose: 400 mg Hydralazine HCl (Apresoline) 10 mg SLOW IVP Q4HR PRN PRN Reason: Blood Pressure Last Admin: 03/22/18 16:26 Dose: 10 mg Melatonin (Melatonin) 3 mg PO HSPRN PRN PRN Reason: Insomnia Last Admin: 03/26/18 21:10 Dose: 3 mg Metoprolol Succinate (Toprol Xl) 6.25 mg PO DAILY [facility] Last Admin: 03/29/18 09:33 Dose: 6.25 mg Nitroglycerin (Nitrostat) 0.4 mg PO Q5MIN PRN PRN Reason: Chest Pain Last Admin: 03/22/18 21:18 Dose: 0.4 mg Ondansetron HCl (Zofran) 4 mg IVP Q6H PRN PRN Reason: Nausea/Vomiting Last Admin: 03/25/18 17:33 Dose: 4 mg Sodium Chloride (Flush - Normal Saline) 10 ml IVF Q12HR [facility] Last Admin: 03/29/18 09:34 Dose: 10 ml Sodium Chloride (Flush - Normal Saline) 10 ml IVF PRN PRN PRN Reason: Saline Flush Last Admin: 03/24/18 21:29 Dose: 10 ml Tramadol HCl (Ultram) 25 mg PO Q12H PRN PRN Reason: Moderate to Severe Pain (6-10) Last Admin: 03/22/18 19:58 Dose: 25 mg
--- NOTE | 2018-03-30 03:47 | DIS ---
DATE OF ADMISSION: 03/21/2018 DATE OF DISCHARGE: 03/29/2018 PRIMARY CARE PROVIDER: Tyler Corrigan MD DISCHARGE DIAGNOSES: 1. Choledocholithiasis. 2. Cholelithiasis. 3. Cholangitis. 4. Klebsiella bacteremia. 5. Acute kidney injury. 6. Atrial flutter. 7. Sepsis. CONSULTATIONS DURING THIS HOSPITALIZATION: 1. Pulmonology, Dr. Hernandez. 2. Cardiology, Dr. Stephenson. 3. Electrophysiology, Dr. Clinton. 4. Gastroenterology, Dr. Mills. 5. General Surgery, Dr. Bravo. DISCHARGE MEDICATIONS: 1. Plavix 75 mg daily. 2. Lisinopril 5 mg daily. 3. Apixaban 2.5 mg two times a day. 4. Multaq 400 mg two times a day. 5. Toprol-XL 6.25 mg daily. CONDITION OF PATIENT ON THE DAY OF DISCHARGE: Stable. I assessed Mr. Pacheco on the day of discharge. He denies any chest pain or shortness of breath. Vital signs are stable. S1 and S2 are heard, regular. Lungs are clear to auscultation bilaterally. HOSPITAL COURSE: Mr. Pacheco is a pleasant 87-year-old gentleman, who was admitted to [facility] on March 21, 2018, for hemodynamically unstable atrial flutter which needed cardioversion. Please refer to Dr. Zuñiga's history and physical note for further details regarding this admission. He was seen by Cardiology and Pulmonology Services. He was also hypotensive. He was treated with intravenous antibiotics for possible sepsis. Venous blood cultures from March 21 grew Klebsiella oxytoca, which was pansensitive. He also had acute kidney injury at the time of admission with a creatinine of 2.16. This resolved with intravenous fluids. He was also found to have abnormal liver function tests at the time of admission. He had abdominal ultrasound on March 24, 2018, which showed sonographic evidence of cholelithiasis without definite sonographic evidence of cholecystitis. He had a prominent common bile duct, raising the possibility of choledocholithiasis. He also had increased echogenicity of the liver, which may be due to hepatic steatosis or hepatocellular disease. He was seen by Gastroenterology Service and underwent ERCP on March 25, 2018. He underwent sphincterotomy and successful balloon extraction of 3 black-pigmented stones measuring 6 to 9 mm in size. His liver function tests improved. General Surgery was consulted for possible cholecystectomy. They recommended observation at this time only and not put him at risk for general anesthetic. This is in light of his significant coronary artery disease and advanced age. He continued to improve clinically and is being discharged home in a stable condition. On the day of discharge, he has sodium 132, potassium 4.3, creatinine 0.71, total bilirubin 2.3, AST 59, ALT 45, and alkaline phosphatase 193. Albumin is 2.4. White count is 6100, hemoglobin 11.2, and platelet count 196,000. He was advised to follow up with his primary care provider and have his liver function tests rechecked. His statin was on hold because of abnormal liver function tests. I advised him to discuss with his primary care provider as to when to restart the statin. His beta stefanie dose was decreased during this hospitalization because of bradycardia. Many thanks for allowing me to participate in your patient's care. Please feel free to contact me with any questions or concerns. DISCHARGE DESTINATION: Home. TOTAL AMOUNT OF TIME SPENT COORDINATING THIS DISCHARGE: 33 minutes. Job ID: [id number]
== END 2018-03-29 19:08 | disposition home or self-care (01) | DRG 872 ==
LOC: ERS 23:50 → CCU 03-21 03:03 → 2NO 03-21 11:00 → CCU 03-21 17:05 → 2NO 03-22 14:01
PROVIDERS: ADMIT Hospitalist; ATTEND Hospitalist
PROC: 0FC98ZZ Extirpation of Matter from Common Bile Duct, Via Natural or Artificial Opening Endoscopic (ICD-10-PCS; principal; 2018-03-25)
PROC: BF13YZZ Fluoroscopy of Gallbladder and Bile Ducts using Other Contrast (ICD-10-PCS; 2018-03-25)
DX: A41.9 Sepsis, unspecified organism (principal); K80.40 Calculus of bile duct with cholecystitis, unspecified, without obstruction; N17.9 Acute kidney failure, unspecified; I48.1 Persistent atrial fibrillation; I48.4 Atypical atrial flutter; Z79.01 Long term (current) use of anticoagulants; B96.1 Klebsiella pneumoniae [K. pneumoniae] as the cause of diseases classified elsewhere; Z95.1 Presence of aortocoronary bypass graft; I25.10 Atherosclerotic heart disease of native coronary artery without angina pectoris; I10 Essential (primary) hypertension; E78.5 Hyperlipidemia, unspecified; Z87.891 Personal history of nicotine dependence; Z79.82 Long term (current) use of aspirin; Z79.02 Long term (current) use of antithrombotics/antiplatelets; Z79.811 Long term (current) use of aromatase inhibitors; Z86.73 Personal history of transient ischemic attack (TIA), and cerebral infarction without residual deficits; Z85.46 Personal history of malignant neoplasm of prostate; E86.0 Dehydration; I48.0 Paroxysmal atrial fibrillation
CPT/HCPCS: 36415; 71045; 71260; 74330; 76705; 80048; 80053; 81001; 82550; 82553; 83605; 83690; 83735; 83880; 84100; 84145; 84484; 85014; 85018; 85025; 87040; 87077; 87086; 87149; 87186; 92960; 93005; 93010; 96360; 96361; 96372; 96374; 96375; 99152; G0378; J0360; J0696; J1160; J1650; J1956; J2270; J2405; J2543; J2704; J3370; J7050; Q9961

== ENCOUNTER 2018-03-31 05:05 | Observation (INO) | payer MEDICARE, BC ==
[2018-03-31 05:46] LABS: #Basophils 0.1 thou/uL (0.0-0.2); #Lymphocytes 1.8 thou/uL (1.20-3.40); #Monocytes 0.8 thou/uL (0.11-0.59); #Neutrophils 4.7 thou/uL (1.40-6.50); %Basophils 0.8 % (0.0-1.0); %Eosinophils 0.5 % (0.0-10.0); %Lymphocytes 24.6 % (21.0-51.0); %Monocytes 10.4 % (0.0-10.0); %Neutrophils 63.6 % (42.0-75.0); Mean Corpuscular HGB CONC 32.6 g/dL (32.0-36.0); Mean Corpuscular Hemoglobin 33.3 pg (27.0-31.0); Mean Platelet Volume 8.4 fL (7.4-10.4); Platelet Count 288 thou/uL (130-400); RBC Distribution Width 12.4 % (11.5-14.5); White Blood Cell (WBC) Count 7.3 thou/uL (4.8-10.8)
[2018-03-31 05:47] LABS: ALT (SGPT) 51 U/L (8-55); AST (SGOT) 78 U/L (5-34); Albumin 3.1 g/dL (3.4-4.8); Alkaline Phosphatase 369 U/L (40-150); Anion Gap 11 mmol/L (10-20); BUN (Urea Nitrogen) 10 mg/dL (8.4-25.7); Bilirubin, Total 3.4 mg/dL (0.2-1.2); Calc. Creatinine Clearance 0 mL/min (70-130); Calcium 8.8 mg/dL (7.8-10.44); Carbon Dioxide 26 mmol/L (23-31); Chloride 102 mmol/L (98-107); Estimated GFR-MDRD 85; Globulin 4.3 g/dL (2.4-3.5); Glucose 115 mg/dL (83-110); Lipase 33 U/L (8-78); Potassium 3.9 mmol/L (3.5-5.1); Protein, Total 7.4 g/dL (5.8-8.1); Sodium 135 mmol/L (136-145)
--- NOTE | 2018-03-31 07:40 | ULT ---
RIGHT UPPER QUADRANT ULTRASOUND: Date: 03/31/18 INDICATION: Right upper quadrant pain. COMPARISON: Right upper quadrant ultrasound dated 03/24/18 and ERCP evaluation dated 03/25/18. FINDINGS: There is fatty infiltration of the liver. No focal hepatic lesion is evident. There are multiple ston es within the gallbladder with gallbladder wall thickening and pericholecystic fluid. Sonographic Mur phy's sign is reported. Common bile duct remains enlarged, measuring 1.07 cm. Pancreas is obscured by overlying bowel gas. The right kidney measures 11.4 x 4.8 x 4.6 cm. There is hepatopetal flow presen t within the main portal vein. Mlt reports the possibility of some diminished flow within the distal aspect of the main portal vein, which was not definitively confirmed with spectral Doppler gerard ging. IMPRESSION: 1. Findings suspicious by sonography for acute calculus cholecystitis. There is gallbladder wall thi ckening and pericholecystic edema, and report of a positive sonographic Spaulding's sign. Extent of the gallbladder wall thickening and pericholecystic edema is slightly more pronounced than on the recent comparison right upper quadrant ultrasound dated 03/24/18. 2. Common bile duct remains dilated; however, ERCP evaluation dated 03/25/18 demonstrated removal of multiple intraluminal stones. A recurrent stone within the distal common bile duct cannot be exclude d. 3. Fatty liver. 4. Recommend consideration for CT of the abdomen and pelvis with IV contrast to evaluate patency of the portal vein, as well as possible evaluation for distal common bile duct stone. Surgical consultat ion is also recommended. POS: ABDULAZIZ
[2018-03-31] MEDS ORDERED: Acetaminophen 325 MG TAB PO PRN ×2 (08:00→14:23)
[2018-03-31] MEDS ORDERED: Ondansetron ODT 4 MG TAB SL PRN (08:00)
[2018-03-31] MEDS ORDERED: Ondansetron PF 4 MG/2 ML Vial IVP PRN (08:00)
--- NOTE | 2018-03-31 09:12 | CT ---
CT ABDOMEN AND PELVIS WITH IV CONTRAST: HISTORY: An 87-year-old male with a history of right upper quadrant pain and cholelithiasis. COMPARISON: Gallbladder ultrasound from 03/31/2018. FINDINGS: There are some minimal increased linear and interstitial more chronic appearing changes in the bases of the lungs. Liver echogenicity is heterogeneous with some patchy regional low attenuation changes, having the appearance of some heterogeneous fatty change. There is scattered air within the biliary tree, gallbladder, and common bile duct. Several gallstones are noted in the gallbladder with some minimal pericholecystic fluid and edematous changes. The pancreas, spleen, and adrenal glands are un remarkable. There is some right renal scarring but no renal calculus or obstruction. There is a 4 cm in diameter aneurysm in the AP dimension of the infrarenal abdominal aorta, above the bifurcatio n. No abscess or abnormal fluid collection. Dilated common duct, up to 0.9 cm. IMPRESSION: 1. Cholelithiasis with some gallbladder wall edema or pericholecystic fluid. 2. Air within the biliary tree and gallbladder. 3. Some heterogeneous attenuation changes of the liver, probably related to heterogeneous fatty santiago ge. 4. Minimally dilated common duct, up to 0.9 cm. 5. A 4 cm in diameter infrarenal abdominal aortic aneurysm. 6. Sigmoid colon diverticulosis without diverticulitis. POS: FLACA
--- NOTE | 2018-03-31 11:09 | HP ---
PRIMARY CARE PHYSICIAN: Dr. Todd Mckeon. CHIEF COMPLAINT: Abdominal pain. HISTORY OF PRESENT ILLNESS: Mr. Pacheco is a pleasant 87-year-old gentleman, who was actually discharged from our hospital two days ago. At that time, he was found to have cholelithiasis as well as choledocholithiasis. He also had some biliary colic associated with this. Due to his advanced age and medical comorbidities, the decision was made to do an ERCP with sphincterotomy and to leave the gallbladder intact. The patient underwent the procedure and was discharged home and states that he was feeling okay until early this morning at about 3:00 a.m. he began having severe right upper quadrant pain, which awoke him from sleep. He denies having any nausea or vomiting however, but says that he has been concerned because he has had no appetite in the past couple of weeks and said that he has lost at least 10 pounds due to not eating and he says, at this time, he wishes something could be done about it. He has a history of coronary artery disease. He had a recent stress test in February, which was negative. He was seen by Dr. Stephenson last month and she noted in a dictation that he had a cardiac catheterization back in 2014 in which he had re-demonstration of occlusion of his [place] arteries, but had patent saphenous vein graft and patent [place] to the LAD. It is however notable that this was back in 2014. The patient, however, states he denies having any angina symptoms. He denies any PND nor orthopnea. 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 REVIEW OF SYSTEMS: All systems were reviewed and are negative except for that mentioned in the history of present illness. PAST MEDICAL HISTORY: Significant for coronary artery disease, status post bypass, hypertension, hyperlipidemia, cholelithiasis and choledocholithiasis, prostate cancer, and cerebrovascular accident. PAST SURGICAL HISTORY: He has had coronary artery bypass grafting as well as an appendectomy. ALLERGIES: NO KNOWN DRUG ALLERGIES. SOCIAL HISTORY: He is . He has six children. He is a nonsmoker and nondrinker. Kita Huerta, who is his daughter, is his surrogate decision maker and he would like to be a full code. He is also ambulatory in his own home. He does not use any aids such as a walker or cane. FAMILY HISTORY: Significant for heart disease as well as cerebrovascular disease in his father. MEDICATIONS: He is not sure of his medications. He says that they are the same as when he was discharged with the exception of aspirin, which he was taken off as well as his cholesterol medicine and his medications at discharge included; 1. Plavix 75 mg daily. 2. Lisinopril 5 mg daily. 3. Eliquis 2.5 mg twice a day. 4. Multaq 400 mg twice a day. 5. Toprol-XL 6.25 mg daily. PHYSICAL EXAMINATION: GENERAL: He is alert and oriented. He appears to be in no acute distress. VITAL SIGNS: Blood pressure was 120/72, heart rate 76, respiratory rate of 18, and temperature is 98.0. HEENT: His pupils are equal, round, and reactive to light and accommodation. He does have some mild icterus. Throat, there is no erythema. No exudates. NECK: No adenopathy. No bruits. No jugular venous distention. LUNGS: Clear to auscultation. There was no wheezing. No rales. No rhonchi. CARDIOVASCULAR: He has normal S1 and S2. There is no S3 or S4. No murmurs or clicks. No rubs. ABDOMEN: Soft. He does have some right upper quadrant tenderness. There is no rebound or guarding. Bowel sounds are present. No organomegaly is appreciated. EXTREMITIES: There is no edema. No calf tenderness. No joint effusions. NEUROLOGIC: His cranial nerves 2 through 12 are grossly intact as well as his muscle strength is 5/5 bilaterally. SKIN AND INTEGUMENT: Skin is mildly icteric. There is no rash. No skin lesions. LABORATORY DATA: His sodium is 135, potassium 3.9, chloride is 102, CO2 is 26, BUN of 10, creatinine 0.85, glucose is 115, bilirubin is 3.4, and albumin 3.1. White blood cell count 7.3, hemoglobin 12.0, hematocrit 36.9, platelet count is 288, and he had an abdominal ultrasound that showed some findings suspicious for calculous cholecystitis. The gallbladder wall was thickening and there is some pericholecystic edema. The common bile duct remained dilated. The patient had an EKG that I reviewed personally and it showed a sinus bradycardia with some nonspecific ST wave changes. It is also noted that he had an echo back in February of 2018 showing the EF of 50% to 55% and some diastolic dysfunction. ASSESSMENT: 1. This is an 87-year-old gentleman, who complains of right upper quadrant pain severe enough to wake him from sleep. He also had an elevated bilirubin of 3.4, which is higher than his previous admissions and an ultrasound suspicious for findings of acute cholecystitis. He will be admitted to telemetry given his history of heart disease and started on IV fluids, potentially IV antibiotics should he become febrile and GI will be consulted. 2. History of coronary artery disease. 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 3. History of atrial arrhythmias. The patient has a history of atrial fibrillation. He has been treated medically for this. We will continue Multaq as well as Eliquis at the 2.5 dose as was recommended when he was recently hospitalized. Further recommendations are to follow. Job ID: [id number]
--- NOTE | 2018-03-31 12:23 | MRI ---
MRI ABDOMEN WITHOUT CONTRAST: HISTORY: Evaluate for choledocholithiasis. COMPARISON: CT from the same day. FINDINGS: There is lack of flow void within the right portal vein. Cholelithiasis is present. No intrahepatic or extrahepatic biliary dilatation. No choledocholithiasis is appreciated. No hydronephrosis. There is signal alteration within the right L4 vertebral body, suggesting hemangioma. Small renal cysts are present. IMPRESSION: 1. No evidence of obstructive choledocholithiasis. There is cholelithiasis. 2. 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 Evaluation for an underlying infiltrative malignant process is limited without intravenous contrast. Followup in three to six months is recommended. POS: FLACA
[2018-03-31] MEDS ORDERED: hydrALAZINE 20 MG/ML VIAL SLOW IVP PRN (14:23)
[2018-03-31 14:27] VITALS: BMI 22.1
[2018-03-31] MEDS ORDERED: Morphine 2 MG/ML SYRINGE SLOW IVP PRN (14:27)
[2018-03-31] MEDS: Sodium Chloride 0.9% 1,000 ML IV SCH (14:46)
--- NOTE | 2018-03-31 17:47 | CON ---
DATE OF CONSULTATION: 03/31/2018 REASON FOR CONSULTATION: Preoperative evaluation. PRIMARY RN DISCHARGE: Davida Stephenson MD. HISTORY OF PRESENT ILLNESS: Mr. Pacheco is a pleasant 87-year-old gentleman, who comes to the hospital for abdominal pain. He was diagnosed with cholecystitis just last week. He underwent ERCP and was treated conservatively afterwards. He comes back with abdominal pain, has findings suggestive of cholecystitis again, so Cardiology is being asked to evaluate for preoperative risks. Mr. Pacheco had a bypass surgery approximately 20 years ago, had a catheterization done in about 2014 when his [place] arteries were occluded, but his vein grafts were mostly patent. He had a patent [place] to the LAD. He also had a stress test back in February of 2018, which was normal. No evidence of ischemia with normal EF and his echo at that time showed normal EF as well just with diastolic dysfunction. He denies any chest pain, tightness, or pressure. No shortness of breath or lightheadedness. His only complaint is abdominal pain. PAST MEDICAL HISTORY: 1. Coronary artery disease, status post CABG over 20 years ago. 2. Hypertension. 3. Hyperlipidemia. 4. Cholelithiasis and choledocholithiasis. 5. Prostate cancer. 6. CVAs in the past. 7. Atrial flutter on recent admission, first diagnosed, started on anticoagulation. PAST SURGICAL HISTORY: 1. Coronary artery bypass grafting. 2. Appendectomy. 3. Heart catheterization back in 2014. OUTPATIENT MEDICATIONS: Include: 1. Plavix 75 mg daily. 2. Lisinopril 5 mg daily. 3. Eliquis 2.5 mg twice a day. 4. Multaq 400 mg twice a day. 5. Toprol-XL 6.25 a day. ALLERGIES: NO KNOWN DRUG ALLERGIES. FAMILY HISTORY: History of CVAs in his father and heart disease. SOCIAL HISTORY: Six children. No alcohol, tobacco, or drugs. REVIEW OF SYSTEMS: A 12-point review of systems was done and was found to be negative other than stated in the history of present illness. PHYSICAL EXAMINATION: VITAL SIGNS: Temperature 98.0, pulse 97, respiratory rate 20, saturation 98% on room air, blood pressure 138/61. GENERAL: Awake, alert, and oriented x3, in no distress. HEENT: Normocephalic, atraumatic. NECK: Supple. LUNGS: Clear. CARDIOVASCULAR: S1, S2. No S3, S4. No murmurs. ABDOMEN: Soft. Positive bowel sounds. EXTREMITIES: No edema. SKIN: Warm and dry. LABORATORY DATA: Laboratory work was reviewed. CBC; white count of 7.3, hemoglobin of 12, hematocrit of 36, platelet count of 288. Chemistries with sodium of 135, normal potassium, chloride, carbon dioxide, anion gap. BUN was 10, creatinine 0.85, total bilirubin of 3.4, AST 78, ALT 51, alkaline phosphatase 369. Troponin is undetectable. Albumin of 3.1. Lipase of 33. CT of the abdomen and pelvis was reviewed. ASSESSMENT AND PLAN: 1. Preoperative evaluation: He is asymptomatic from the cardiac standpoint. He had a negative stress test a little over a month ago and an echo that showed normal EF and no major valvular abnormalities. At this time, he is intermediate risk for an intermediate risk procedure. I would think he should be able to proceed without any further cardiac interventions. He is on Eliquis and Plavix. At this point, Eliquis should be held at least 48 hours before the procedure for lower risk of bleeding and Plavix ideally 5 days for the procedure if this is not emergent. 2. Further recommendations per Dr. Stephenson, his primary guinea pig breeder will evaluate him tomorrow. Job ID: [id number] [facility]
[2018-03-31] MEDS: Famotidine/PF 20 mg/2ml Vial SLOW IVP SCH (20:53)
--- NOTE | 2018-04-01 02:25 | CON ---
DATE OF CONSULTATION: HISTORY OF PRESENT ILLNESS: The patient is an 87-year-old gentleman who is a poor historian, who was recently seen and evaluated and treated for common duct stones. The patient underwent an ERCP on 03/25/2018. The stones were removed after sphincterotomy was performed. He was discharged on 03/29/2018. He returned because of abdominal pain when he began having severe right upper quadrant pain. He reports he has lost some weight, but blames it on the hospital food. PAST MEDICAL HISTORY: Includes coronary artery disease, hypertension, hyperlipidemia, choledocholithiasis, status post sphincterotomy, prostate cancer, cerebrovascular accident. PAST SURGICAL HISTORY: Includes coronary artery bypass, appendectomy. ALLERGIES: NO KNOWN ALLERGIES. SOCIAL HISTORY: He does not smoke or drink. MEDICATIONS: Include; 1. Eliquis 2.5 mg p.o. b.i.d. 2. Prinivil 5 mg p.o. daily. 3. Multaq 400 mg p.o. b.i.d. 4. Metoprolol 6.25 mg p.o. daily. 5. Plavix 75 mg p.o. daily. FAMILY HISTORY: Negative. REVIEW OF SYSTEMS: Unobtainable. PHYSICAL EXAMINATION: GENERAL: Shows an elderly male, in no acute distress. VITAL SIGNS: Temperature 98.5, pulse 57, respiratory rate 20, blood pressure 105/54. HEENT: Shows poor dentition. NECK: Supple. CHEST: Clear. CARDIOVASCULAR: Irregular rate and rhythm. ABDOMEN: Soft. No tenderness. No rebound or guarding. RECTAL: Deferred. EXTREMITIES: Normal. NEUROLOGIC: Nonfocal. LABORATORY DATA: Shows a hemoglobin 12.0, hematocrit 36.9 with MCV of 102. Chemistries show a total bilirubin of 3.4, AST of 78, ALT of 51, alkaline phosphatase of 369, comparing that showed his total bilirubin has not gone down. AST has been elevated. Alkaline phosphatase has gone up. IMAGING DATA: MRI showed no evidence of obstructive choledocholithiasis. 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 Abdominal and pelvic CT done today also showed cholelithiasis with some gallbladder wall edema and pericholecystic fluid. Pneumobilia is noted. Some heterogeneous attenuation change in the liver. Dilated duct of 0.9 mm, abdominal aortic aneurysm. Ultrasound shows findings suspicious for acute cholecystitis. There is gallbladder wall thickening, pericholecystic edema, and fatty liver. ASSESSMENT: 1. Right upper quadrant pain-the patient recently had endoscopic retrograde cholangiopancreatography and sphincterotomy for common duct stones. However, magnetic resonance cholangiopancreatography tends to show that this is not a problem. 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 Other possibility would be cholecystitis, although he is nontender on today's exam. 2. Abnormal liver function tests-his liver function tests have not really normalized since gallstones were removed. This could be a number of factors. He could have some chronic underlying liver disease, although his platelet count was normal. Portal vein thrombosis could potentially cause abnormal liver function tests. 3. 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 4. Coronary artery disease. 5. Atrial flutter, on Eliquis. RECOMMENDATIONS: 1. We will await Dr. Bravo's evaluation whether this patient's gallbladder should be removed. If not, then would restart Eliquis to prevent propagation of his portal vein thrombosis. Presently, he seems to be fairly asymptomatic. 2. Begin clear liquids. Job ID: [id number]
[2018-04-01] MEDS: Sodium Chloride 0.9% 1,000 ML IV SCH (02:54)
[2018-04-01 06:22] LABS: #Lymphocytes 1.3 thou/uL (1.20-3.40); #Monocytes 0.7 thou/uL (0.11-0.59); #Neutrophils 2.9 thou/uL (1.40-6.50); %Basophils 0.7 % (0.0-1.0); %Eosinophils 0.8 % (0.0-10.0); %Lymphocytes 26.5 % (21.0-51.0); %Monocytes 13.8 % (0.0-10.0); %Neutrophils 58.3 % (42.0-75.0); Hemoglobin 10.8 g/dL (14.0-18.0); Mean Corpuscular HGB CONC 33.4 g/dL (32.0-36.0); Mean Corpuscular Hemoglobin 34.4 pg (27.0-31.0); Mean Platelet Volume 8.3 fL (7.4-10.4); Platelet Count 283 thou/uL (130-400); RBC Distribution Width 12.4 % (11.5-14.5); Red Blood Cell (RBC) Count 3.14 mill/uL (4.70-6.10)
[2018-04-01 06:45] LABS: Anion Gap 11 mmol/L (10-20); BUN (Urea Nitrogen) 11 mg/dL (8.4-25.7); Calc. Creatinine Clearance 57 mL/min (70-130); Calcium 8.3 mg/dL (7.8-10.44); Carbon Dioxide 24 mmol/L (23-31); Chloride 105 mmol/L (98-107); Estimated GFR-MDRD Greater than 90; Glucose 86 mg/dL (83-110); Potassium 4.4 mmol/L (3.5-5.1); Sodium 136 mmol/L (136-145)
[2018-04-01 07:58] LABS: ALT (SGPT) 56 U/L (8-55); AST (SGOT) 67 U/L (5-34); Albumin 2.8 g/dL (3.4-4.8); Alkaline Phosphatase 357 U/L (40-150); Bilirubin, Direct 1.3 mg/dL (0.1-0.3); Protein, Total 6.1 g/dL (5.8-8.1)
[2018-04-01] MEDS ORDERED: Dronedarone HCl 400 MG TAB PO SCH (08:00)
[2018-04-01] MEDS ORDERED: Lisinopril 5 MG TAB PO SCH (09:00)
[2018-04-01] MEDS: Famotidine/PF 20 mg/2ml Vial SLOW IVP SCH (09:52)
[2018-04-01] MEDS: Clopidogrel Bisulfate 75 MG TAB PO SCH ×2 (09:52→15:39)
--- NOTE | 2018-04-01 11:44 | PDOC.PN ---
- Subjective Encounter Start Date: 04/01/18 Encounter Start Time: 10:45 Mr. Pacheco was seen today in follow-up of abdominal pain and cholelithiasis. He tells me today that he does not have any pain. He also tells me that the pain he experienced early yesterday morning, was more at the lower abdomen that the right upper quadrant. - Objective Resuscitation Status - Order Detail: 03/31/18 09:48 Resuscitation Status Routine Resuscitation Status: FULL: Full Resuscitation MAR Reviewed: Yes Vital Signs & Weight: Vital Signs (12 hours) Temp Pulse Resp BP BP BP Pulse Ox 04/01/18 09:51 56 L 127/60 04/01/18 07:26 98.2 F 56 L 16 127/60 94 L 04/01/18 02:55 98.0 F 60 16 122/73 96 Weight Weight 133 lb 3.2 oz I&O: 03/31/18 04/01/18 04/02/18 06:59 06:59 06:59 Intake Total 1057 2 Output Total 725 300 Balance 332 -298 Result Diagrams: 04/01/18 05:22 04/01/18 05:21 Phys Exam - Physical Examination HEENT: PERRLA Respiratory: no wheezing, no rales, no rhonchi, clear to auscultation bilateral Cardiovascular: RRR, no significant murmur, no rub Gastrointestinal: soft, non-tender, no distention, positive bowel sounds Musculoskeletal: pulses present, edema present trace ankle edema Neurological: non-focal, normal sensation, moves all 4 limbs Psychiatric: normal affect, A&O x 3 Dx/Plan (1) Cholelithiasis Code(s): K80.20 - CALCULUS OF GALLBLADDER W/O CHOLECYSTITIS W/O OBSTRUCTION Status: Acute (2) CAD (coronary artery disease) Code(s): I25.10 - ATHSCL HEART DISEASE OF [place] CORONARY ARTERY W/O ANG PCTRS Status: Chronic Qualifiers: Coronary Disease-Associated Artery/Lesion type: [place] artery [place] vs. transplanted heart: [place] heart Associated angina: angina presence unspecified Qualified Code(s): I25.10 - Atherosclerotic heart disease of [place] coronary artery without angina pectoris (3) HTN (hypertension) Code(s): I10 - ESSENTIAL (PRIMARY) HYPERTENSION Status: Chronic Qualifiers: Hypertension type: essential hypertension Qualified Code(s): I10 - Essential (primary) hypertension Comment: Improved (4) Atrial flutter Code(s): I48.92 - UNSPECIFIED ATRIAL FLUTTER Status: Resolved Qualifiers: Atrial flutter type: typical Qualified Code(s): I48.3 - Typical atrial flutter Comment: continue Multaq - Plan * Cholelithisis- it is unclear if he has cholcystitis- he now says the pain was of a different characteristic, his WNC count is normal and there is no fever- however radiographically it is suspicious for cholecystitis- await Surgery input * CAD- stable * HTN- blood pressure is stable * Atrial Flutter- his heart rate is stable * Will continue to hold Eliquis, and Plavix pending Surgery evaluation.
[2018-04-01 12:33] VITALS: BP 129/60; TEMP 98.3
[2018-04-01] MEDS ORDERED: Apixaban 2.5 MG TAB PO SCH (18:00)
--- NOTE | 2018-04-01 18:00 | PRG ---
DATE OF SERVICE: 04/01/2018 HISTORY OF PRESENT ILLNESS: Mr. Pacheco returns, I previously saw for choledocholithiasis. It was decided that he was too high risk for cholecystectomy. He had ERCP and sphincterotomy and presumed to be low risk for recurrence. He returns with abdominal pain, mostly suprapubic pain he says that is now resolved. Had persistent elevation of his bilirubin. MRCP revealed no obvious bile duct obstruction. However, it did reveal portal vein thrombosis. PHYSICAL EXAMINATION: VITAL SIGNS: He is afebrile and his vital signs are stable. ABDOMEN: Soft. No real tenderness. LABORATORY DATA: His labs were reviewed. IMPRESSION: History of choledocholithiasis, status post endoscopic retrograde cholangiopancreatography and sphincterotomy. I still agree that there are no plans for cholecystectomy, especially in light of his now portal vein thrombosis. Plans for medicine, can anticoagulate and start diet. Job ID: [id number]
[2018-04-02] MEDS ORDERED: Metoprolol Tartrate 25 MG TAB PO SCH (09:00)
[2018-04-02] MEDS ORDERED: Apixaban 2.5 MG TAB PO SCH (09:00)
--- NOTE | 2018-04-06 12:49 | EKG ---
Test Reason : Blood Pressure : / mmHG Vent. Rate : 056 BPM Atrial Rate : 056 BPM P-R Int : 134 ms QRS Dur : 088 ms QT Int : 478 ms P-R-T Axes : 040 032 062 degrees QTc Int : 461 ms Sinus bradycardia Confirmed by AILEEN BARR DO ([id number]), purchase request editor FANNIE FOWLER ([id number]) on 04/06/2018 12:49:02 PM Referred By: Confirmed By:AILEEN BARR DO
== END 2018-04-01 15:50 | disposition home or self-care (01) ==
LOC: ERS 05:05 → ERHOLD 11:06 → 2SW 14:10
PROVIDERS: ADMIT Internal Medicine; ATTEND Internal Medicine
DX: R10.11 Right upper quadrant pain (principal); I81 Portal vein thrombosis; I25.10 Atherosclerotic heart disease of native coronary artery without angina pectoris; E78.5 Hyperlipidemia, unspecified; I48.3 Typical atrial flutter; Z86.73 Personal history of transient ischemic attack (TIA), and cerebral infarction without residual deficits; Z79.02 Long term (current) use of antithrombotics/antiplatelets; Z79.01 Long term (current) use of anticoagulants; Z79.899 Other long term (current) drug therapy; Z95.1 Presence of aortocoronary bypass graft; Z98.84 Bariatric surgery status; Z98.890 Other specified postprocedural states
CPT/HCPCS: 74177; 74181; 76705; 80048; 80053; 80076; 82105; 82378; 83690; 84484; 85025 ×2; 93005; 96361 ×3; 96374; 96376; 97139; 99285; G0378 ×2; 36415; 96360; S0028

== ENCOUNTER 2018-04-22 20:14 | Observation (INO) | payer MEDICARE, BC ==
--- NOTE | 2018-04-22 20:53 | RAD ---
PORTABLE CHEST 04/22/18 PROVIDED CLINICAL HISTORY: Chest pain. FINDINGS: Comparison 03/21/18. The cardiac and mediastinal silhouette is within normal limits. Median sternotomy changes are seen. C ABG changes are seen. No focal consolidation, pleural fluid or pneumothorax apparent. IMPRESSION: No evidence for an acute cardiopulmonary process. POS: [facility]
[2018-04-22 20:55] LABS: #Lymphocytes 1.9 thou/uL (1.20-3.40); #Monocytes 0.6 thou/uL (0.11-0.59); #Neutrophils 3.1 thou/uL (1.40-6.50); %Basophils 0.2 % (0.0-1.0); %Eosinophils 0.5 % (0.0-10.0); %Lymphocytes 33.1 % (21.0-51.0); %Monocytes 10.2 % (0.0-10.0); %Neutrophils 55.9 % (42.0-75.0); Hemoglobin 11.6 g/dL (14.0-18.0); Mean Corpuscular HGB CONC 34.2 g/dL (32.0-36.0); Mean Corpuscular Hemoglobin 34.5 pg (27.0-31.0); Mean Platelet Volume 7.1 fL (7.4-10.4); Platelet Count 168 thou/uL (130-400); RBC Distribution Width 12.3 % (11.5-14.5); Red Blood Cell (RBC) Count 3.35 mill/uL (4.70-6.10); White Blood Cell (WBC) Count 5.6 thou/uL (4.8-10.8)
[2018-04-22 21:30] LABS: ALT (SGPT) 25 U/L (8-55); AST (SGOT) 25 U/L (5-34); Albumin 3.5 g/dL (3.4-4.8); Alkaline Phosphatase 127 U/L (40-150); Anion Gap 13 mmol/L (10-20); BUN (Urea Nitrogen) 19 mg/dL (8.4-25.7); Bilirubin, Total 0.6 mg/dL (0.2-1.2); Calc. Creatinine Clearance 0 mL/min (70-130); Calcium 8.8 mg/dL (7.8-10.44); Carbon Dioxide 24 mmol/L (23-31); Chloride 101 mmol/L (98-107); Estimated GFR-MDRD 82; Globulin 3.4 g/dL (2.4-3.5); Glucose 113 mg/dL (83-110); Potassium 4.3 mmol/L (3.5-5.1); Protein, Total 6.9 g/dL (5.8-8.1); Sodium 134 mmol/L (136-145)
--- NOTE | 2018-04-22 23:29 | ULT ---
RIGHT UPPER QUADRANT ULTRASOUND: 04/22/18 PROVIDED CLINICAL HISTORY: Pain. FINDINGS: Comparison is made with the examination dated 03/31/18. The pancreas is obscured. The liver demonstrates no mass or intrahepatic biliary ductal dilatation. T he common duct is not dilated. Gallstones with associated gallbladder wall thickening and small amoun t of pericholecystic fluid are redemonstrated. The outdoor adventure guides reports a negative sonographic Spaulding' s sign. The right kidney demonstrates no evidence for hydronephrosis or mass. IMPRESSION: Cholelithiasis with gallbladder wall thickening and pericholecystic fluid is redemonstrated. The sono grapher documents a negative sonographic Spaulding's sign. If there is concern for acute cholecystitis, consider HIDA scan. POS: [facility]
[2018-04-23 01:07] LABS: Troponin I 0.011 ng/mL (< 0.028)
[2018-04-23] MEDS ORDERED: Ondansetron ODT 4 MG TAB SL PRN (01:29)
[2018-04-23] MEDS ORDERED: Acetaminophen 325 MG TAB PO PRN (01:29)
[2018-04-23] MEDS ORDERED: Ondansetron PF 4 MG/2 ML Vial IVP PRN (01:29)
[2018-04-23 01:57] VITALS: BMI 23.3
[2018-04-23 04:26] LABS: Troponin I Less than 0.010 ng/mL (< 0.028)
[2018-04-23] MEDS ORDERED: Zolpidem Tartrate 5 MG TAB PO PRN (04:29)
[2018-04-23] MEDS ORDERED: Bisacodyl 10 MG SUPP PR PRN (04:29)
[2018-04-23] MEDS ORDERED: Senokot S 8.6-50 MG TAB PO PRN (04:29)
[2018-04-23] MEDS ORDERED: Bisacodyl 5 MG TAB PO PRN (04:29)
[2018-04-23] MEDS ORDERED: Calcium Carbonate 500 MG ChewTAB PO PRN (04:29)
[2018-04-23] MEDS ORDERED: Morphine 4 MG/ML VIAL SLOW IVP PRN (04:32)
[2018-04-23 05:14] LABS: #Basophils 0.1 thou/uL (0.0-0.2); #Lymphocytes 1.8 thou/uL (1.20-3.40); #Monocytes 0.5 thou/uL (0.11-0.59); #Neutrophils 2.3 thou/uL (1.40-6.50); %Basophils 1.6 % (0.0-1.0); %Lymphocytes 38.4 % (21.0-51.0); %Monocytes 9.7 % (0.0-10.0); %Neutrophils 49.3 % (42.0-75.0); Hemoglobin 11.7 g/dL (14.0-18.0); Mean Corpuscular HGB CONC 34.4 g/dL (32.0-36.0); Mean Corpuscular Hemoglobin 34.4 pg (27.0-31.0); Mean Platelet Volume 7.5 fL (7.4-10.4); Platelet Count 165 thou/uL (130-400); RBC Distribution Width 12.3 % (11.5-14.5); Red Blood Cell (RBC) Count 3.39 mill/uL (4.70-6.10); White Blood Cell (WBC) Count 4.7 thou/uL (4.8-10.8)
[2018-04-23] MEDS: Sodium Chloride 0.9% 1,000 ML IV SCH ×2 (05:22→18:21)
[2018-04-23] MEDS: Piperacillin/Tazobactam 3.375 GM in Sodium Chloride 0.9% 100 ML IVPB SCH ×2 (05:22→12:49)
[2018-04-23 05:38] LABS: ALT (SGPT) 22 U/L (8-55); AST (SGOT) 23 U/L (5-34); Albumin 3.3 g/dL (3.4-4.8); Alkaline Phosphatase 116 U/L (40-150); Anion Gap 13 mmol/L (10-20); BUN (Urea Nitrogen) 18 mg/dL (8.4-25.7); Bilirubin, Total 0.7 mg/dL (0.2-1.2); Calc. Creatinine Clearance 62 mL/min (70-130); Carbon Dioxide 26 mmol/L (23-31); Chloride 103 mmol/L (98-107); Estimated GFR-MDRD Greater than 90; Globulin 3.2 g/dL (2.4-3.5); Glucose 99 mg/dL (83-110); Potassium 4.2 mmol/L (3.5-5.1); Protein, Total 6.5 g/dL (5.8-8.1); Sodium 138 mmol/L (136-145)
[2018-04-23 05:52] LABS: PTT 34.1 SEC (22.9-36.1); Prothrombin Time 13.5 SEC (12.0-14.7)
--- NOTE | 2018-04-23 06:52 | HP ---
CHIEF COMPLAINT: Chest pain and abdominal discomfort. HISTORY OF PRESENT ILLNESS: This is an 87-year-old male with past medical history of coronary artery disease, status post CABG x4 vessels, hypertension, and hyperlipidemia, presented with chest pain and epigastric abdominal pain, which has been ongoing for the past couple of days. The patient stated that his pain is dull in nature, and the patient stated that the pain is intermittent, nothing makes it better or worse. The patient's music internship is Dr. Stephenson, who has seen the patient and has done intensive workup on the patient and let everything has been okay at this time. The patient has been in the hospital numerous times for similar presentation. On 03/31/2018, the patient was admitted and the patient was found to have cholelithiasis as well as choledocholithiasis. The patient also has some biliary colic associated with symptoms of abdominal pain. During that time due to the patient's advanced age and medical comorbidities, decision was made to do an ERCP with sphincterotomy and to leave the gallbladder intact. The patient underwent the procedure and was discharged home. At this time, the patient is coming in with similar presentation of chest pain and epigastric discomfort, and at this time, we have ordered lab test and we are going to consult surgery to further evaluate the patient. At this time, the patient denies any nausea, vomiting, fever, chills, headaches, dizziness, chest pain, palpitations, shortness of breath, dysuria, hematuria, hematochezia, or melena. REVIEW OF SYSTEMS: Positive for abdominal discomfort and chest discomfort, otherwise as documented in the HPI. All systems have been reviewed and are negative. PAST MEDICAL HISTORY: Significant for coronary artery disease, status post bypass; hypertension; hyperlipidemia; cholelithiasis and choledocholithiasis; prostate cancer; and cerebrovascular accident. PAST SURGICAL HISTORY: Coronary artery bypass grafting and appendectomy. ALLERGIES: NO KNOWN DRUG ALLERGIES. SOCIAL HISTORY: The patient has six children. . Nonsmoker and nondrinker. FAMILY HISTORY: Significant for heart disease as well as cerebrovascular disease in his father side. MEDICATIONS: The patient is on; 1. Plavix. 2. Lisinopril. 3. Eliquis 2.5. 4. Multaq 400 mg b.i.d. 5. Toprol-XL. PHYSICAL EXAMINATION: GENERAL: The patient is alert and oriented x3, not in acute distress. The patient is able to speak in full sentences. VITAL SIGNS: The patient's temperature is 97.9, pulse of 56, respiratory rate of 20, and blood pressure is 154/71. LABORATORY DATA: WBC 5.6, hemoglobin is 7.6, hematocrit is 33.7, RDW is 12.3, and platelet count is 168. Sodium is 134, potassium is 4.3, chloride is 101, carbon dioxide of 24, anion gap of 13, BUN is 19, creatinine is 0.88, GFR is 82, glucose is 113. AST is 25, ALT is 25. BNP is 134.4. IMAGING DATA: Ultrasound of the abdomen shows cholelithiasis with gallbladder wall thickening and pericholecystic fluid is re-demonstrated. Documents a negative sonographic Spaulding sign. HIDA scan is advised if we are having suspicious of acute cholecystitis. ASSESSMENT AND PLAN: 1. This is an 87-year-old male being admitted for epigastric pain and chest discomfort, likely due to cholecystitis versus acute cholelithiasis. At this point, Surgery has been consulted for surgical evaluation on whether the patient can be able to undergo cholecystectomy. We will start the patient on empiric Zosyn and we will do IV fluids. The patient will be made n.p.o. and we will await Surgery's recommendations. 2. Abdominal pain, unspecified. We will monitor the patient closely and we will follow up with morning labs. We will give the patient p.r.n. medication for nausea and vomiting p.r.n. 3. Coronary artery disease, status post coronary artery bypass grafting, currently stable. We will monitor the patient. We will continue the patient on home medications. 4. Atrial fibrillation, on Eliquis. We will continue the patient on this medication. 5. Deep venous thrombosis and gastrointestinal prophylaxis addressed. Job ID: [id number] [facility]
[2018-04-23] MEDS: Famotidine 20 MG TAB PO SCH ×2 (10:22→21:17)
[2018-04-23] MEDS: Aspirin 81 mg Enteric Coated Tablet PO SCH (10:22)
[2018-04-23] MEDS: Lisinopril 5 MG TAB PO SCH (10:22)
[2018-04-23] MEDS: Dronedarone HCl 400 MG TAB PO SCH ×2 (10:22→18:21)
[2018-04-23] MEDS: Apixaban 2.5 MG TAB PO SCH ×2 (10:31→21:18)
[2018-04-23] MEDS: Famotidine/PF 20 mg/2ml Vial SLOW IVP SCH ×2 (10:31→21:20)
[2018-04-23] MEDS: Clopidogrel Bisulfate 75 MG TAB PO SCH (10:31)
--- NOTE | 2018-04-23 14:18 | PRG ---
DATE OF SERVICE: 04/23/2018 SUBJECTIVE: Mr. Pacheco is seen again for recurrent abdominal pain, re-admitted to the hospital. OBJECTIVE: VITAL SIGNS: He is afebrile. Vital signs are stable. ABDOMEN: Today is soft, nontender, nondistended. LABORATORY DATA AND DIAGNOSTIC STUDIES: His white count today is 4. His hemoglobin is 11.7. His creatinine is 0.77. His liver function tests are all normal. His ultrasound last night revealed no Spaulding sign but wall thickening and a small amount of pericholecystic fluid. ASSESSMENT: Gallstones, history of choledocholithiasis, status post ERCP and sphincterotomy and with MRCP on 03/31/2018 showing right portal vein thrombosis. PLAN: The patient is too high risk for cholecystectomy. Again, I do not think that in the setting of a portal vein thrombosis, he should have any procedures open or laparoscopic in his abdomen for now. If he does have severe symptoms in his gallbladder, he could have percutaneous drain placed (cholecystostomy tube). However, he is hesitant to have that now. The patient seems confused at times on our conversation, he does not remember seeing me in the past, although I have seen him on multiple occasions. However, I reaffirmed my hesitancy to perform cholecystectomy given the increased intraoperative perioperative risk given this underlying portal vein thrombosis. We will follow on an as-needed basis. Okay to feed him. Job ID: [id number]
--- NOTE | 2018-04-23 17:05 | PDOC.EVN ---
Event Note - Event Note Event Note: Chart reviewed. Pt seen. Denies abdo pain. No fevers or chills. VSS. S1, S2 , reg. Lungs CTA. Abdo soft, nontender, Spaulding's sign negative, bowel sounds heard. No plan for surgical intervention. Will change antibiotics to oral.
[2018-04-23] MEDS: Cefdinir 300 MG CAP PO SCH (21:17)
[2018-04-23] MEDS: metroNIDAZOLE 500 MG TAB PO SCH (21:17)
[2018-04-24 05:08] LABS: #Eosinphils 0.1 thou/uL (0.0-0.7); #Lymphocytes 1.5 thou/uL (1.20-3.40); #Monocytes 0.4 thou/uL (0.11-0.59); %Basophils 0.2 % (0.0-1.0); %Eosinophils 1.1 % (0.0-10.0); %Lymphocytes 30.2 % (21.0-51.0); %Monocytes 8.3 % (0.0-10.0); %Neutrophils 60.2 % (42.0-75.0); Hemoglobin 11.9 g/dL (14.0-18.0); Mean Corpuscular HGB CONC 34.1 g/dL (32.0-36.0); Mean Corpuscular Hemoglobin 34.2 pg (27.0-31.0); Mean Platelet Volume 7.1 fL (7.4-10.4); Platelet Count 167 thou/uL (130-400); RBC Distribution Width 12.3 % (11.5-14.5); Red Blood Cell (RBC) Count 3.49 mill/uL (4.70-6.10)
[2018-04-24 05:30] LABS: Anion Gap 8 mmol/L (10-20); BUN (Urea Nitrogen) 11 mg/dL (8.4-25.7); Calc. Creatinine Clearance 66 mL/min (70-130); Calcium 8.3 mg/dL (7.8-10.44); Carbon Dioxide 26 mmol/L (23-31); Chloride 106 mmol/L (98-107); Estimated GFR-MDRD Greater than 90; Glucose 91 mg/dL (83-110); Sodium 136 mmol/L (136-145)
[2018-04-24] MEDS: Sodium Chloride 0.9% 1,000 ML IV SCH (06:43)
[2018-04-24 08:27] VITALS: BP 125/64; TEMP 97.5
[2018-04-24] MEDS: metroNIDAZOLE 500 MG TAB PO SCH (08:52)
[2018-04-24] MEDS: Aspirin 81 mg Enteric Coated Tablet PO SCH (08:52)
[2018-04-24] MEDS: Clopidogrel Bisulfate 75 MG TAB PO SCH (08:52)
[2018-04-24] MEDS: Lisinopril 5 MG TAB PO SCH (08:52)
[2018-04-24] MEDS: Apixaban 2.5 MG TAB PO SCH (08:52)
[2018-04-24] MEDS: Famotidine/PF 20 mg/2ml Vial SLOW IVP SCH (08:53)
[2018-04-24] MEDS: Famotidine 20 MG TAB PO SCH (08:53)
[2018-04-24] MEDS: Cefdinir 300 MG CAP PO SCH (08:53)
[2018-04-24] MEDS: Dronedarone HCl 400 MG TAB PO SCH (08:53)
--- NOTE | 2018-04-24 21:24 | DIS ---
DATE OF ADMISSION: 04/23/2018 DATE OF DISCHARGE: 04/24/2018 PRIMARY CARE PROVIDER: Tyler Corrigan MD DISCHARGE DIAGNOSES: 1. Abdominal pain. 2. Cholelithiasis. CONDITION OF PATIENT ON THE DAY OF DISCHARGE: Stable. I assessed Mr. Pacheco on the day of discharge. He denies any chest pain or shortness of breath. He denies any abdominal pain. Vital signs are stable. S1 and S2 are heard, regular. Lungs are clear to auscultation bilaterally. Abdomen is soft, nontender. Negative Spaulding sign. DISCHARGE MEDICATIONS: In addition to his pre-admission home medications as dictated by Dr. Barbosa on history and physical note dated April 23, 2018, he is being discharged home on metronidazole 500 mg 3 times a day for one week and Omnicef 300 mg 2 times a day for 1 week. CONSULTATIONS DURING THIS HOSPITALIZATION: General Surgery, Chas Bravo MD HOSPITAL COURSE: Mr. Pacheco is a pleasant 87-year-old gentleman, who was admitted to [facility] on April 2018, for abdominal pain. Please refer to Dr. Barbosa's history and physical note dated April 23, 2018, for further details. Abdominal ultrasound done at the time of admission showed cholelithiasis with gallbladder wall thickening and pericholecystic fluid. However, the patient had a negative Spaulding sign. He was also afebrile and did not have leukocytosis. He was started on empiric antibiotics and General Surgery Service was consulted. General Surgery Service felt that the patient is too high risk for cholecystectomy. This is in the setting of portal vein thrombosis. If he does have severe symptoms, their recommendation is to have a percutaneous drain placed. The patient was hesitant to have that at this time. He is being discharged home on empiric antibiotics. He is advised to follow up with his primary care provider in 3 to 5 days time. On the day of discharge, Mr. Pacheco has sodium 136, potassium 4, and creatinine 0.72. White count 5000, hemoglobin 11.9, and platelet count 167,000. Many thanks for allowing me to participate in your patient's care. Please feel free to contact me with any questions or concerns. DISCHARGE DESTINATION: Home. Job ID: [id number]
--- NOTE | 2018-04-24 22:13 | EKG ---
Test Reason : EMERGENCY EXAM Blood Pressure : / mmHG Vent. Rate : 062 BPM Atrial Rate : 062 BPM P-R Int : 144 ms QRS Dur : 086 ms QT Int : 412 ms P-R-T Axes : 044 031 064 degrees QTc Int : 418 ms Normal sinus rhythm Possible Inferior infarct , age undetermined Abnormal ECG No changes 31-MAR-18 Confirmed by MARIA E BURR DO ([id number]), editorial specialist FANNIE FOWLER ([id number]) on 04/24/2018 10:13:09 PM Referred By: LENO Confirmed By:MARIA E BURR DO
== END 2018-04-24 12:28 | disposition home or self-care (01) ==
LOC: ERS 20:14 → 2SW 04-23 01:23
PROVIDERS: ADMIT Internal Medicine; ATTEND Internal Medicine
DX: K80.20 Calculus of gallbladder without cholecystitis without obstruction (principal); K82.8 Other specified diseases of gallbladder; I25.10 Atherosclerotic heart disease of native coronary artery without angina pectoris; I10 Essential (primary) hypertension; I48.91 Unspecified atrial fibrillation; E78.5 Hyperlipidemia, unspecified; Z85.46 Personal history of malignant neoplasm of prostate; Z86.73 Personal history of transient ischemic attack (TIA), and cerebral infarction without residual deficits; Z95.1 Presence of aortocoronary bypass graft; Z90.49 Acquired absence of other specified parts of digestive tract; Z79.01 Long term (current) use of anticoagulants; Z79.02 Long term (current) use of antithrombotics/antiplatelets; Z79.2 Long term (current) use of antibiotics; Z79.899 Other long term (current) drug therapy
CPT/HCPCS: 71045; 76705; 80048; 80053 ×2; 83880; 84484 ×3; 85025 ×3; 85610; 85730; 93005; 96361 ×2; 96365; 96366; 99285; G0378 ×2; 36415; J2543; J7050; S0028

== ENCOUNTER 2018-12-11 09:00 | Observation (INO) | payer MEDICARE, BC ==
--- NOTE | 2018-12-11 09:28 | RAD ---
EXAM: Chest one view: HISTORY: Left-sided chest pain and rib pain without injury COMPARISON: 04/22/2018 FINDINGS: Postop midline sternotomy. Postoperative changes involving both shoulders. Heart size: Within normal limits. Lungs: Clear of acute process. No evidence for pneumonia, pleural effusion, acute edema, or pneumothorax, or other significant acute process. IMPRESSION: No significant acute intrathoracic disease. Atherosclerotic changes of the aorta.
[2018-12-11 09:43] LABS: #Lymphocytes 1.5 thou/uL (1.20-3.40); #Monocytes 0.5 thou/uL (0.11-0.59); #Neutrophils 4.1 thou/uL (1.40-6.50); %Eosinophils 0.6 % (0.0-10.0); %Lymphocytes 24.1 % (21.0-51.0); %Monocytes 8.5 % (0.0-10.0); %Neutrophils 66.9 % (42.0-75.0); Hemoglobin 13.2 g/dL (14.0-18.0); Mean Corpuscular HGB CONC 34.3 g/dL (32.0-36.0); Mean Corpuscular Hemoglobin 35.2 pg (27.0-31.0); Platelet Count 174 thou/uL (130-400); RBC Distribution Width 11.8 % (11.5-14.5); Red Blood Cell (RBC) Count 3.73 mill/uL (4.70-6.10); White Blood Cell (WBC) Count 6.1 thou/uL (4.8-10.8)
[2018-12-11 10:06] LABS: ALT (SGPT) 25 U/L (8-55); AST (SGOT) 27 U/L (5-34); Albumin 3.7 g/dL (3.4-4.8); Alkaline Phosphatase 105 U/L (40-150); Anion Gap 11 mmol/L (10-20); BUN (Urea Nitrogen) 18 mg/dL (8.4-25.7); Bilirubin, Total 0.6 mg/dL (0.2-1.2); Calc. Creatinine Clearance 0 mL/min (70-130); Calcium 9.1 mg/dL (7.8-10.44); Carbon Dioxide 26 mmol/L (23-31); Chloride 106 mmol/L (98-107); Estimated GFR-MDRD Greater than 90; Glucose 112 mg/dL (83-110); Lipase 24 U/L (8-78); Potassium 3.7 mmol/L (3.5-5.1); Protein, Total 6.7 g/dL (5.8-8.1); Sodium 139 mmol/L (136-145)
[2018-12-11] MEDS ORDERED: Morphine 2 MG/ML SYRINGE ONE (10:23)
--- NOTE | 2018-12-11 12:40 | HP ---
PRIMARY CARE PHYSICIAN: Tyler Corrigan MD REASON FOR ADMISSION: Chest pain. HISTORY OF PRESENT ILLNESS: An 88-year-old male who came to emergency room with complaint of chest pain. His chest pain is left lower rib cage. It is constant pain, reproducible started seven days ago. There is no specific aggravating or relieving factor. There is no relation of chest discomfort with food, respiration, or activity. He denies any dizziness. He denies any immobilization. He denies any lower extremity edema. He denies any calf tenderness. He does not have any fever, chills, cough. He does not have any constipation, diarrhea, melena, hematochezia. This patient has recurrent admission for similar chest pain back in this February 2018. He had echocardiography and stress test, which was unremarkable. Subsequently, he came back in March 2018. At that point, the patient had abdomen MRI, abdomen and pelvis CT scan and he required ERCP with sphincterotomy. He has underlying cholelithiasis. This time, the patient reports that in March 2018 whatever chest discomfort he had exactly similar discomfort he is experiencing this time as well. He does not have any dyspepsia symptoms. He does not have any right upper quadrant pain. He denies any fever or chills. He denies any nausea, vomiting, diaphoresis. Today, in the emergency room, routine blood tests unremarkable. His electrocardiogram is not showing any ischemic changes. His LFTs unremarkable. ER physician wanted to keep him in the hospital for observation to rule out acute coronary syndrome. REVIEW OF SYSTEMS: CONSTITUTIONAL: Negative for weight loss or gain, ability to conduct usual activities. SKIN: Negative for rash, itching. EYES: Negative for double vision, pain. ENT/MOUTH: Negative for nose bleeding, neck stiffness, pain, tenderness. CARDIOVASCULAR: Negative for palpitations, dyspnea on exertion, orthopnea. RESPIRATORY: Negative for shortness of breath, wheezing, cough, hemoptysis, fever or night sweats. GASTROINTESTINAL: Negative for poor appetite, abdominal pain, heartburn, nausea, vomiting, constipation, or diarrhea. GENITOURINARY: Negative for urgency, frequency, dysuria, nocturia. MUSCULOSKELETAL: Negative for pain, swelling. NEUROLOGIC/PSYCHIATRIC: Negative for anxiety, depression. ALLERGY/IMMUNOLOGIC: Negative for skin rash, bleeding tendency. Please see my HPI for pertinent positives and negatives. All other review of systems reviewed and negative except as mentioned in HPI. PAST MEDICAL HISTORY: Coronary artery disease required CABG, history of DE, hypertension, cholelithiasis, history of prostate cancer, and history of CVA. PAST SURGICAL HISTORY: CABG, appendicectomy, ERCP with sphincterotomy. PAST PSYCHIATRIC HISTORY: Reviewed and negative. ALLERGIES: NO KNOWN DRUG ALLERGIES. SOCIAL HISTORY: The patient is . He is nonsmoker and nonalcoholic. He denies any other illicit drug abuse. FAMILY HISTORY: Positive for heart disease and stroke on paternal side. EMERGENCY ROOM COURSE: Reviewed. CURRENT HOME MEDICATIONS: 1. Plavix 75 mg daily. 2. Lisinopril 10 mg daily. 3. Metoprolol succinate 25 mg daily. 4. Zocor 40 mg p.o. daily. 5. Prinivil 10 mg daily. 6. Multivitamin one tablet p.o. daily. PHYSICAL EXAMINATION: VITAL SIGNS: Currently, blood pressure 148/66, pulse 54, respiratory rate 18, temperature 98.3, saturation 97% on room air. Weight 48.5 kg. GENERAL: The patient is currently alert and oriented, no acute distress. HEENT: Head; normocephalic and atraumatic. Eyes; pupils round, reactive to light. Extraocular muscles intact. ENT, oropharynx within normal limits. Moist mucous membranes. No oral lesion. No pharyngeal erythema. No exudate. NECK: Supple. No JVD. No thyromegaly. No carotid bruit. No jugular venous distention. LUNGS: Clear to auscultation without any rhonchi or rales. CARDIAC: S1 and S2, regular. No murmur. No gallop. No rub. ABDOMEN: Soft. Bowel sounds present. Nontender. Nondistended. No organomegaly. No mass. No suprapubic tenderness. No Spaulding sign. No right upper quadrant tenderness. No epigastric tenderness. CHEST WALL: The patient does have reproducible left anterolateral chest discomfort without any surrounding rash or erythema. EXTREMITIES: Lower extremity, no edema. Good distal pulsation. Upper extremities within normal limits. SKIN: No skin rash. NEUROLOGIC: Nonfocal examination. PSYCHIATRIC: Normal affect. BACK: Within normal limit. SIGNIFICANT LABORATORY DATA: EKG showing normal sinus rhythm, nonspecific ST-T changes. Chest x-ray based on my review no acute cardiopulmonary process. CBC; WBC 6.1, hemoglobin 13.2, MCV 103, platelet 174. BMP; sodium 139, potassium 3.7, chloride 106, carbon dioxide 26, BUN 18, creatinine 0.74, glucose 112, and calcium 9.1. LFTs; AST 27, ALT 25, alkaline phosphatase 105, albumin 3.7, lipase 24. Troponin I 0.012. ASSESSMENT AND PLAN: 1. Chest pain. The patient has left-sided lower rib cage pain which is reproducible. I am suspecting his discomfort is exactly related with musculoskeletal etiology or rib cage pain suspecting costochondritis. The patient is thinking that he had similar pain when he had gallbladder procedure done with endoscopic retrograde cholangiopancreatography, but I doubtful current problem is gallbladder related given no Spaulding sign, no right upper quadrant tenderness and LFTs normal. No chronic dyspepsia symptoms. Even if he has interest in going for laparoscopic cholecystectomy that will be done as an outpatient basis. 2. Macrocytic anemia. We will consider adding multivitamin one tablet daily, vitamin B12 1000 mcg p.o. daily, and folic acid 1 mg daily upon discharge. 3. Coronary artery disease with history of coronary artery bypass graft, currently stable. Cardiac enzyme negative. EKG unremarkable. We will continue Plavix 75 mg p.o. daily, Toprol-XL 25 mg daily, lisinopril 10 mg p.o. daily. If heart rate drops below 55, then we will hold on Toprol-XL therapy. 4. Dyslipidemia. Continue Zocor 40 mg p.o. at bedtime. 5. Hypertension. Continue lisinopril 10 mg p.o. daily. 6. Deep venous thrombosis prophylaxis not needed because we are expecting discharge in 24 hours. 7. Gastrointestinal prophylaxis, Pepcid 20 mg p.o. b.i.d. CODE STATUS: The patient is full code. The patient does not have any surrogate decision maker. DISPOSITION PLAN: Once we rule out cardiac etiology, then we will consider discharging him home. As this patient already had within one year stress test done, echocardiography done, he does not need any more investigation while in hospital. We will consider discharging him home tomorrow. Job ID: [id number]
[2018-12-11 13:10] LABS: Troponin I Less than 0.010 ng/mL (< 0.028)
[2018-12-11] MEDS ORDERED: Acetaminophen 325 MG TAB PO PRN ×2 (14:53→16:07)
[2018-12-11] MEDS ORDERED: Ondansetron PF 4 MG/2 ML Vial IVP PRN ×2 (14:53→16:07)
[2018-12-11] MEDS ORDERED: Ondansetron ODT 4 MG TAB SL PRN (14:53)
[2018-12-11 15:04] VITALS: BMI 22.4
[2018-12-11] MEDS ORDERED: Diabetic Tussin 200 MG/10 ML UDCUP PO PRN (16:07)
[2018-12-11] MEDS ORDERED: Bisacodyl 10 MG SUPP PR PRN (16:07)
[2018-12-11] MEDS ORDERED: Nitroglycerin 0.4 MG TAB (25 Tab Bottle) PO PRN (16:07)
[2018-12-11] MEDS ORDERED: hydrALAZINE 20 MG/ML VIAL SLOW IVP PRN (16:07)
[2018-12-11] MEDS ORDERED: Calcium Carbonate 500 MG ChewTAB PO PRN (16:07)
[2018-12-11] MEDS ORDERED: Sodium Chloride 0.65% Nasal 44 ML BOT EA NARE PRN (16:07)
[2018-12-11] MEDS ORDERED: HYDROcodone/Acetaminophen 5/325 mg Tablet PO PRN (16:07)
[2018-12-11] MEDS ORDERED: Loratadine 10 MG TAB PO PRN (16:07)
[2018-12-11] MEDS ORDERED: Cepastat Lozenges 1 LOZ PO PRN (16:07)
[2018-12-11] MEDS ORDERED: Senokot S 8.6-50 MG TAB PO PRN (16:07)
[2018-12-11] MEDS ORDERED: Artificial Tears 18 DROP/0.9 ML EA EYE PRN (16:07)
[2018-12-11] MEDS ORDERED: Zolpidem Tartrate 5 MG TAB PO PRN (16:07)
[2018-12-11] MEDS ORDERED: Ondansetron ODT 4 MG TAB PO PRN (16:07)
[2018-12-11] MEDS ORDERED: Loperamide HCl 2 MG CAP PO PRN (16:07)
[2018-12-11] MEDS ORDERED: traMADol HCl 50 MG TAB PO PRN (17:23)
[2018-12-11 19:08] LABS: Troponin I Less than 0.010 ng/mL (< 0.028)
[2018-12-11] MEDS: Famotidine 20 MG TAB PO SCH (20:45)
[2018-12-11] MEDS ORDERED: Simvastatin 40 MG TAB PO SCH (21:00)
[2018-12-12] MEDS ORDERED: Cyanocobalamin (Vitamin B-12) 1,000 MCG TAB PO SCH (09:00)
[2018-12-12] MEDS ORDERED: Lisinopril 5 MG TAB PO SCH (09:00)
[2018-12-12] MEDS ORDERED: Lisinopril 10 MG TAB PO SCH (09:00)
[2018-12-12] MEDS ORDERED: Aspirin 81 mg Enteric Coated Tablet PO SCH (09:00)
[2018-12-12] MEDS ORDERED: Folic Acid 1 MG TAB PO SCH (09:00)
[2018-12-12] MEDS ORDERED: Clopidogrel Bisulfate 75 MG TAB PO SCH (09:00)
[2018-12-12] MEDS ORDERED: Multivitamin W/ Minerals 1 TAB PO SCH (09:00)
[2018-12-12] MEDS: Famotidine 20 MG TAB PO SCH (09:16)
--- NOTE | 2018-12-12 09:50 | PDOC.HOSPP ---
- Subjective Encounter Date: 12/12/18 Encounter Time: 07:10 Subjective: Patient seen and examined. No new complaints. No overnight events - Objective Vital Signs & Weight: Vital Signs (12 hours) Temp Pulse Resp BP BP BP Pulse Ox 12/12/18 09:15 59 L 146/73 H 12/12/18 07:53 97.6 F 59 L 16 146/73 H 94 L 12/12/18 04:05 98.3 F 51 L 18 125/57 L 97 Weight Weight 136 lb 8 oz I&O: 12/11/18 12/12/18 12/13/18 06:59 06:59 06:59 Intake Total 410 Output Total 525 Balance -115 Result Diagrams: 12/11/18 09:26 12/11/18 09:26 EKG Reviewed by me: Yes (nsr) Hospitalist ROS - Review of Systems ENT: denies: ear pain, ear discharge, nose pain, nose discharge, nose congestion , mouth pain, mouth swelling, throat pain, throat swelling, other Respiratory: denies: cough, dry, shortness of breath, hemoptysis, SOB with excertion, pleuritic pain, sputum, wheezing, other Cardiovascular: denies: chest pain, palpitations, orthopnea, paroxysmal noc. dyspnea, edema, light headedness, other Gastrointestinal: denies: nausea, vomitting, abdominal pain, diarrhea, constipation, melena, hematochezia, other Genitourinary: denies: dysuria, frequency, incontinence, hematuria, retention, other Musculoskeletal: denies: neck pain, shoulder pain, arm pain, back pain, hand pain, leg pain, foot pain, other Skin: denies: rash, lesions, valdo, bruising, other - Medication Medications: Active Medications Generic Name Dose Route Start Last Admin Trade Name Freq PRN Reason Stop Dose Admin Acetaminophen 650 mg 12/11/18 16:07 12/12/18 09:16 Tylenol PO 650 mg Q4H PRN Administration Headache/Fever/Mild Pain (1-3) Aspirin 81 mg 12/12/18 09:00 12/12/18 09:16 Ecotrin PO 81 mg DAILY KARIE Administration Clopidogrel Bisulfate 75 mg 12/12/18 09:00 12/12/18 09:16 Plavix PO 75 mg DAILY KARIE Administration Cyanocobalamin 1,000 mcg 12/12/18 09:00 12/12/18 09:20 Vitamin B-12 PO Not Given DAILY [facility] Famotidine 20 mg 12/11/18 21:00 12/12/18 09:16 Pepcid PO 20 mg BID KARIE Administration Folic Acid 1 mg 12/12/18 09:00 12/12/18 09:20 Folvite PO Not Given DAILY [facility] Iron/Minerals/Multivitamins 1 tab 12/12/18 09:00 12/12/18 09:20 Theragran M PO Not Given DAILY [facility] Lisinopril 5 mg 12/12/18 09:00 12/12/18 09:15 Zestril PO 5 mg DAILY KARIE Administration Metoprolol Succinate 12.5 mg 12/12/18 09:00 12/12/18 09:20 Toprol Xl PO Not Given DAILY [facility] Simvastatin 40 mg 12/11/18 21:00 12/11/18 20:45 Zocor PO 40 mg HS KARIE Administration Sodium Chloride 10 ml 12/12/18 09:00 12/12/18 09:20 Flush - Normal Saline IVF 10 ml Q12HR KARIE Administration - Exam General Appearance: NAD, awake alert Eye: PERRL, anicteric sclera ENT: normocephalic atraumatic, no oropharyngeal lesions Neck: supple, symmetric, no JVD, no thyromegaly Heart: RRR, no murmur, no gallops, no rubs Respiratory: CTAB, no wheezes, no rales, no ronchi Gastrointestinal: soft, non-tender, non-distended, normal bowel sounds, no palpable masses, no hepatomegaly Extremities: no cyanosis, no clubbing, no edema Skin: normal turgor, no lesions, no rashes Neurological: CN's grossly intact, normal sensation to touch Musculoskeletal: normal tone, normal strength, no muscle wasting Psychiatric: normal affect, normal behavior, A&O x 3 Hosp A/P (1) Chest wall pain Code(s): R07.89 - OTHER CHEST PAIN Status: Acute (2) CAD (coronary artery disease) Code(s): I25.10 - ATHSCL HEART DISEASE OF [place] CORONARY ARTERY W/O ANG PCTRS Status: Chronic Qualifiers: (3) Cholelithiasis Code(s): K80.20 - CALCULUS OF GALLBLADDER W/O CHOLECYSTITIS W/O OBSTRUCTION Status: Chronic (4) Dyslipidemia Code(s): E78.5 - HYPERLIPIDEMIA, UNSPECIFIED Status: Chronic (5) HTN (hypertension) Code(s): I10 - ESSENTIAL (PRIMARY) HYPERTENSION Status: Chronic Qualifiers: (6) Macrocytic anemia Code(s): D53.9 - NUTRITIONAL ANEMIA, UNSPECIFIED Status: Chronic - Plan old records reviewed/req pt's chest pain is reproducible does not need more testing he has bradycardia, will hold Metoprolol today medication reviewed as above symptomatic treatment
[2018-12-12] MEDS ORDERED: Ketorolac Tromethamine 30 MG/ML VIAL IVP SCH (15:30)
[2018-12-12 15:33] VITALS: BP 112/65; TEMP 97.8
--- NOTE | 2018-12-12 16:59 | DIS ---
DATE OF ADMISSION: 12/11/2018 DATE OF DISCHARGE: 12/12/2018 PRIMARY CARE PHYSICIAN: Shad Bowman. DISCHARGE DISPOSITION: Home. PRIMARY DISCHARGE DIAGNOSIS: Chest wall pain, musculoskeletal. SECONDARY DISCHARGE DIAGNOSES: Coronary artery disease, hypertension, dyslipidemia, macrocytic anemia. PRIMARY PROCEDURES AND OPERATIONS: None. RADIOLOGICAL INVESTIGATIONS: Chest x-ray normal. SIGNIFICANT LABORATORY DATA: CBC, BMP, cardiac enzyme negative. DISCHARGE MEDICATIONS: DISCHARGE PLAN: Posthospital, the patient will follow up with primary care physician. HOSPITAL COURSE: An 88-year-old male The patient is medically stable for discharge today. Job ID: [id number]
--- NOTE | 2018-12-12 21:46 | CON ---
DATE OF CONSULTATION: HISTORY OF PRESENT ILLNESS: The patient is an 88-year-old gentleman who presents with left-sided rib discomfort. The discomfort left-sided pain along his left ribs. The patient has a long history of coronary artery disease. He is status post coronary artery bypass graft surgery nearly 20 years ago. He underwent a repeat catheterization in 2014 and was found to have patent coronary artery bypass grafts. The patient was in his usual state of health when he presented with left-sided discomfort along his lower ribs. He states this is worse when he takes a deep breath. The patient denies having any PND or orthopnea. PAST MEDICAL HISTORY: 1. Coronary artery disease. 2. Hypertension. 3. Dyslipidemia. 4. Prostate carcinoma. 5. History of CVAs. 6. History of atrial flutter. PAST SURGICAL HISTORY: Coronary artery bypass surgery and appendectomy. MEDICATIONS: See nursing list. ALLERGIES: NO KNOWN DRUG ALLERGIES. SOCIAL HISTORY: Nonsmoker. FAMILY HISTORY: No strong family history of heart disease. REVIEW OF SYSTEMS: Ten-point system otherwise unremarkable. PHYSICAL EXAMINATION: GENERAL: This is a well-developed gentleman, in no acute distress. VITAL SIGNS: Blood pressure 132/58. NECK: Showed no jugular venous distention. LUNGS: Clear to auscultation. HEART: Regular rate and rhythm. Normal S1 and S2 with no murmurs. ABDOMEN: Nondistended. EXTREMITIES: Show no edema. VASCULAR: Radial pulses are 2+. LABORATORY DATA: Sodium 139, potassium 3.7, chloride 106, bicarbonate 26, BUN 18, creatinine 0.74, glucose was 112. Troponin less than 0.01. White blood cell count is 6.1, hemoglobin 18. His EKG revealed normal sinus rhythm with premature atrial contractions. IMPRESSION: 1. Musculoskeletal discomfort. 2. History of coronary artery bypass surgery. 3. History atrial flutter. 4. Hypertension. 5. Dyslipidemia. This gentleman presents with atypical pain suggestive of musculoskeletal discomfort. We will give the patient a dose of Toradol. No further cardiac evaluation is recommended. Job ID: [id number] [facility]
== END 2018-12-12 16:35 | disposition home or self-care (01) ==
LOC: ERS 09:00 → 2SW 11:25 → ERS 14:42
PROVIDERS: ADMIT Psychiatry & Neurology Neurology; ATTEND Psychiatry & Neurology Neurology
DX: R07.89 Other chest pain (principal); I25.10 Atherosclerotic heart disease of native coronary artery without angina pectoris; I10 Essential (primary) hypertension; D53.9 Nutritional anemia, unspecified; E78.5 Hyperlipidemia, unspecified; I25.2 Old myocardial infarction; K80.20 Calculus of gallbladder without cholecystitis without obstruction; I48.92 Unspecified atrial flutter; Z86.73 Personal history of transient ischemic attack (TIA), and cerebral infarction without residual deficits; Z79.02 Long term (current) use of antithrombotics/antiplatelets; Z79.82 Long term (current) use of aspirin; Z79.899 Other long term (current) drug therapy; Z95.1 Presence of aortocoronary bypass graft
CPT/HCPCS: 71045; 80053; 80061; 83690; 84484 ×2; 85025; 93005; 94760; 96374; 96375; 99285; G0378 ×3; 36415; J1885; J2270

== ENCOUNTER 2019-06-28 20:44 | Observation (INO) | payer MEDICARE, BC ==
[2019-06-28 21:05] LABS: #Eosinphils 0.1 thou/uL (0.0-0.7); #Lymphocytes 2.2 thou/uL (1.20-3.40); #Monocytes 0.6 thou/uL (0.11-0.59); %Basophils 0.6 % (0.0-1.0); %Eosinophils 1.2 % (0.0-10.0); %Lymphocytes 31.9 % (21.0-51.0); %Monocytes 9.1 % (0.0-10.0); %Neutrophils 57.3 % (42.0-75.0); Hemoglobin 13.9 g/dL (14.0-18.0); Mean Corpuscular HGB CONC 34.9 g/dL (32.0-36.0); Mean Platelet Volume 7.4 fL (7.4-10.4); Platelet Count 167 thou/uL (130-400); RBC Distribution Width 12.2 % (11.5-14.5); Red Blood Cell (RBC) Count 3.86 mill/uL (4.70-6.10)
--- NOTE | 2019-06-28 21:22 | RAD ---
PORTABLE CHEST: 06/28/19 HISTORY: Chest pain. Lung limon are clear. No infiltrate or vascular congestion. Heart size within normal range. Postop s ternotomy changes. No interval change from the prior exam of 2019. IMPRESSION: No acute finding. POS: [facility]
[2019-06-28 21:25] LABS: ALT (SGPT) 23 U/L (8-55); AST (SGOT) 23 U/L (5-34); Albumin 3.9 g/dL (3.4-4.8); Alkaline Phosphatase 101 U/L (40-110); Anion Gap 12 mmol/L (10-20); BUN (Urea Nitrogen) 29 mg/dL (8.4-25.7); Bilirubin, Total 0.5 mg/dL (0.2-1.2); CK (CPK) 119 U/L (30-200); Calc. Creatinine Clearance 0 mL/min (70-130); Calcium 9.1 mg/dL (7.8-10.44); Carbon Dioxide 26 mmol/L (23-31); Chloride 104 mmol/L (98-107); Estimated GFR-MDRD 58; Globulin 2.9 g/dL (2.4-3.5); Glucose 105 mg/dL (83-110); Potassium 4.5 mmol/L (3.5-5.1); Protein, Total 6.8 g/dL (5.8-8.1); Sodium 137 mmol/L (136-145)
[2019-06-28] MEDS ORDERED: Aspirin Chewable 81 MG TAB ONE (22:07)
[2019-06-28] MEDS ORDERED: Nitroglycerin 2% Ointment 1 INCH/1 GM Packet ONE (22:08)
[2019-06-29 01:51] LABS: Troponin I 0.012 ng/mL (< 0.028)
[2019-06-29 03:19] VITALS: BMI 22.8
[2019-06-29 05:27] LABS: Troponin I Less than 0.010 ng/mL (< 0.028)
[2019-06-29] MEDS ORDERED: Acetaminophen 325 MG TAB PO PRN (05:47)
[2019-06-29] MEDS ORDERED: Ondansetron ODT 4 MG TAB PO PRN (05:47)
[2019-06-29] MEDS ORDERED: Nitroglycerin 0.4 MG TAB (25 Tab Bottle) PO PRN (05:47)
[2019-06-29] MEDS ORDERED: Ondansetron PF 4 MG/2 ML Vial IVP PRN (05:47)
--- NOTE | 2019-06-29 06:11 | HP ---
PRIMARY CARE PHYSICIAN: Dr. Corrigan. POCKET GRINDER OPERATOR: Dr. Stephenson. CHIEF COMPLAINT: Chest pain. HISTORY OF PRESENT ILLNESS: Mr. Pacheco is a pleasant 88-year-old gentleman, who has a history of coronary artery disease. He had a coronary artery bypass grafting surgery about 22 years ago. He has had chest pain off and on since then, but more recently, he had some chest pain while watching TV on yesterday. He says this started around 6 p.m. He rated the pain as 7/10 to 8/10. It comes and goes. There was no radiation. No shortness of breath. No nausea. No vomiting. He denies any dizziness or feeling palpitations. However, given his history of heart disease, he wanted to have this checked out and so, he came to the ER for evaluation. He says the chest pain lasted until they placed a nitroglycerin patch on him and currently, he is chest pain-free. He says he is currently active and actually continues to work. 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 He says that he has not had any problems with this recently. His last stress test was in February of 2018 and it was negative. REVIEW OF SYSTEMS: All systems were reviewed and are negative except for that mentioned in the history of present illness. PAST MEDICAL HISTORY: Significant for coronary artery disease, hypertension, cholelithiasis, prostate cancer, and cerebrovascular accident. PAST SURGICAL HISTORY: He has had coronary artery bypass grafting 22 years ago, appendectomy, ERCP, and sphincterotomy. ALLERGIES: NO KNOWN DRUG ALLERGIES. SOCIAL HISTORY: He is . He is a nonsmoker and nondrinker. He has 7 children. He continues to work and he would like to be a full code and he has one of his sons who lives with him. FAMILY HISTORY: No history of any heritable diseases. CURRENT MEDICATIONS: Include, 1. Plavix 75 mg daily. 2. Aspirin 81 mg daily. 3. Lisinopril 5 mg a day. PHYSICAL EXAMINATION: GENERAL: He is alert and oriented. He appears to be in no acute distress. He is well developed and well nourished. He appears quite a bit younger than his stated age. VITAL SIGNS: Blood pressure 141/72, heart rate 61, respiratory rate of 16, and temperature is 97.6. HEENT: Pupils are equal, round, and reactive. Extraocular muscles are intact. Sclerae anicteric. Throat; no erythema, no exudates. NECK: No adenopathy. No bruits. LUNGS: Clear to auscultation. No wheezing. No rales. No rhonchi. CARDIOVASCULAR: He has a normal S1, S2. There is no S3 or S4. No murmurs, clicks, no rubs. ABDOMEN: Soft, nontender, and nondistended. Positive for bowel sounds. No rebound. No guarding. No organomegaly. EXTREMITIES: There is no clubbing or cyanosis. No edema. No calf tenderness. No joint effusions. NEUROLOGIC: The exam is grossly nonfocal. SKIN AND INTEGUMENT: No skin changes. No rash. LABORATORY DATA: White blood cell count 7.0, hemoglobin 13.9, hematocrit is 39.8, and platelet count is 167. Sodium 137, potassium 4.5, chloride is 104, CO2 is 26, BUN of 29, creatinine 1.19, glucose is 105. EKG; sinus rhythm, the rate is 63, he had a Q-wave in lead III and AVF, some frequent PVCs that is by my reading. He had a chest x-ray with no acute findings. ASSESSMENT: 1. This is a pleasant 88-year-old gentleman, who has a history of coronary artery disease. He presents with chest pain. The description of which is atypical; however, he does have risk factors for coronary artery disease and in fact, he has a personal history of coronary artery disease. He will be placed in observation. We will get a nuclear stress test, lipid panel, and monitor his blood pressure. Cardiology consult if his stress test is positive and if it is negative and he does not have any further symptoms, then I suspect he can be safely discharged home. 2. Hypertension. Blood pressure is well controlled. We will reconcile and restart his home medications and he will be placed on DVT and GI prophylaxis. Job ID: [id number]
[2019-06-29] MEDS: Nitroglycerin 2% Ointment 1 INCH/1 GM Packet TOP SCH ×3 (06:37→21:35)
[2019-06-29] MEDS: Famotidine 20 MG TAB PO SCH (08:31)
[2019-06-29] MEDS: Enoxaparin Sodium 40 MG/0.4 ML SYRINGE SC SCH (08:31)
[2019-06-29] MEDS: Clopidogrel Bisulfate 75 MG TAB PO SCH (08:32)
[2019-06-29] MEDS: Aspirin 81 mg Enteric Coated Tablet PO SCH (08:32)
[2019-06-29] MEDS ORDERED: Regadenoson 0.4 MG/5 ML SYRINGE ONE (08:41)
[2019-06-29] MEDS: Lisinopril 10 MG TAB PO SCH (08:56)
[2019-06-29] MEDS ORDERED: Lisinopril 2.5 MG TAB PO SCH (09:00)
[2019-06-30 07:23] VITALS: BP 121/68; TEMP 98.6
--- NOTE | 2019-06-30 07:41 | NM ---
EXAM: Nuclear medicine cardiac perfusion examination with ejection fraction HISTORY: Chest pain TECHNIQUE: Rest images: 11 mCi technetium 99m sestamibi Stress images: 33 mCi of technetium 9M sestamibi; Lexiscan COMPARISON: None FINDINGS: Tomographic images: There is a medium sized moderate intensity fixed perfusion defect at the apex. No reversible perfusion defects are seen. Gated images: Normal wall motion and ejection fraction of 63%. EDV: 72 mL LHR: 0.3 TID: 1.1 IMPRESSION: Defect at the apex likely represents sequelae from remote apical infarction. No ischemia is seen at this time.
[2019-06-30] MEDS: Nitroglycerin 2% Ointment 1 INCH/1 GM Packet TOP SCH (07:58)
[2019-06-30] MEDS: Enoxaparin Sodium 40 MG/0.4 ML SYRINGE SC SCH (09:11)
[2019-06-30] MEDS: Aspirin 81 mg Enteric Coated Tablet PO SCH (09:12)
[2019-06-30] MEDS: Famotidine 20 MG TAB PO SCH (09:13)
[2019-06-30] MEDS: Clopidogrel Bisulfate 75 MG TAB PO SCH (09:13)
[2019-06-30] MEDS: Lisinopril 10 MG TAB PO SCH (09:42)
--- NOTE | 2019-06-30 16:55 | DIS ---
DATE OF ADMISSION: 06/28/2019 DATE OF DISCHARGE: 06/30/2019 DISCHARGE DIAGNOSES: 1. Chest pain, rule out acute coronary syndrome. 2. Hypertension. DISCHARGE MEDICATIONS: 1. Aspirin 81 mg orally daily. 2. Plavix 75 mg orally daily. 3. Lisinopril 5 mg orally daily. HISTORY OF PRESENT ILLNESS AND HOSPITAL COURSE: The patient is an 88-year-old male with past medical history of coronary artery disease, status post CABG 22 years ago, who presented to the hospital with complaints of worsening chest pain. The patient denies shortness of breath, nausea, vomiting, palpitations, or dizziness. His EKG showed normal sinus rhythm with no evidence of ST-T abnormalities. Serial troponins were obtained, which were unremarkable. A nuclear pharmacologic stress test was subsequently performed and the results showed defect at the apex likely represent sequelae from remote apical infarction. No ischemia is seen at this time. At this time, the patient is stable for discharge with outpatient followup recommended in 1 week with his PCP. Job ID: [id number]
--- NOTE | 2019-07-02 08:46 | EKG ---
Test Reason : CHEST PAIN Blood Pressure : / mmHG Vent. Rate : 063 BPM Atrial Rate : 063 BPM P-R Int : 146 ms QRS Dur : 090 ms QT Int : 382 ms P-R-T Axes : 032 002 061 degrees QTc Int : 390 ms Sinus rhythm with occasional Premature ventricular complexes Inferior infarct , age undetermined Abnormal ECG Confirmed by VANESSA BAKER D.O. ([id number]), deputy editor in chief CHETAN LAINEZ ([id number]) on 07/02/2019 8:45:41 AM Referred By: SAMUEL Confirmed By:VANESSA BAKER D.O.
== END 2019-06-30 13:12 | disposition home or self-care (01) ==
LOC: ERS 20:44 → ERHOLD 23:45 → 2SE 06-29 00:04
PROVIDERS: ADMIT Internal Medicine; ATTEND Internal Medicine
DX: R07.9 Chest pain, unspecified (principal); I25.10 Atherosclerotic heart disease of native coronary artery without angina pectoris; I10 Essential (primary) hypertension; Z79.02 Long term (current) use of antithrombotics/antiplatelets; Z79.82 Long term (current) use of aspirin; Z79.899 Other long term (current) drug therapy; Z85.46 Personal history of malignant neoplasm of prostate; Z86.73 Personal history of transient ischemic attack (TIA), and cerebral infarction without residual deficits; Z90.49 Acquired absence of other specified parts of digestive tract; Z95.1 Presence of aortocoronary bypass graft
CPT/HCPCS: 71045; 78452; 80053; 82550; 84484 ×3; 85025; 93005; 93017; A9500; 36415; 94760; 96372; G0378; J1650; J2785

== ENCOUNTER 2019-12-08 05:18 | Emergency (ER) | payer MEDICARE, BC ==
[2019-12-08 05:44] LABS: #Basophils 0.1 thou/uL (0.0-0.2); #Eosinphils 0.1 thou/uL (0.0-0.7); #Lymphocytes 2.4 thou/uL (1.20-3.40); #Monocytes 0.6 thou/uL (0.11-0.59); #Neutrophils 4.1 thou/uL (1.40-6.50); %Eosinophils 1.7 % (0.0-10.0); %Lymphocytes 33.4 % (21.0-51.0); %Monocytes 7.6 % (0.0-10.0); %Neutrophils 56.2 % (42.0-75.0); Hemoglobin 14.6 g/dL (14.0-18.0); Mean Corpuscular HGB CONC 33.1 g/dL (32.0-36.0); Mean Platelet Volume 7.8 fL (7.4-10.4); Platelet Count 173 thou/uL (130-400); RBC Distribution Width 12.4 % (11.5-14.5); Red Blood Cell (RBC) Count 4.28 mill/uL (4.70-6.10); White Blood Cell (WBC) Count 7.2 thou/uL (4.8-10.8)
[2019-12-08 06:08] LABS: ALT (SGPT) 19 U/L (8-55); AST (SGOT) 33 U/L (5-34); Albumin 3.8 g/dL (3.4-4.8); Alkaline Phosphatase 81 U/L (40-110); Anion Gap 15 mmol/L (10-20); BUN (Urea Nitrogen) 27 mg/dL (8.4-25.7); Bilirubin, Total 0.5 mg/dL (0.2-1.2); CK (CPK) 130 U/L (30-200); Calc. Creatinine Clearance 0 mL/min (70-130); Calcium 8.8 mg/dL (7.8-10.44); Carbon Dioxide 21 mmol/L (23-31); Chloride 105 mmol/L (98-107); Estimated GFR-MDRD 85; Globulin 3.1 g/dL (2.4-3.5); Glucose 103 mg/dL (83-110); Potassium 5.2 mmol/L (3.5-5.1); Protein, Total 6.9 g/dL (5.8-8.1); Sodium 136 mmol/L (136-145)
--- NOTE | 2019-12-08 07:31 | RAD ---
Portable frontal chest radiograph: 12/08/2019 COMPARISON: 06/28/2019 HISTORY: Chest pain FINDINGS: Stable midline sternotomy wires and mediastinal clips. Heart and mediastinal contours are s table. No pneumothorax, pleural fluid, focal consolidation, or alveolar edema. IMPRESSION: No acute findings.
--- NOTE | 2019-12-10 11:56 | EKG ---
Test Reason : Blood Pressure : / mmHG Vent. Rate : 071 BPM Atrial Rate : 071 BPM P-R Int : 148 ms QRS Dur : 086 ms QT Int : 372 ms P-R-T Axes : 029 023 061 degrees QTc Int : 404 ms Sinus rhythm with marked sinus arrhythmia Inferior infarct , age undetermined Abnormal ECG No change from 06/2019 Confirmed by SOLITARIO SCHAFER ([id number]), order editor CHETAN LAINEZ ([id number]) on 12/10/2019 11:55:51 AM Referred By: Confirmed By:SOLITARIO SCHAFER
== END 2019-12-08 06:20 | disposition home or self-care (01) ==
LOC: ERS 05:18
DX: R07.89 Other chest pain (principal); I10 Essential (primary) hypertension; I25.2 Old myocardial infarction; E78.5 Hyperlipidemia, unspecified; I25.10 Atherosclerotic heart disease of native coronary artery without angina pectoris; Z87.891 Personal history of nicotine dependence; Z79.82 Long term (current) use of aspirin; Z79.899 Other long term (current) drug therapy
CPT/HCPCS: 71045; 80053; 82550; 84484; 85025; 93005

== ENCOUNTER 2020-05-17 16:32 | Inpatient (IN) | payer MEDICARE, BC ==
[~2020-05-17 16:32] MED LIST: Iopamidol-370 76% 500 ML 1 ML ONE
[2020-05-17 17:32] LABS: #Lymphocytes 1.6 thou/uL (1.20-3.40); #Monocytes 0.8 thou/uL (0.11-0.59); #Neutrophils 6.3 thou/uL (1.40-6.50); %Basophils 0.5 % (0.0-1.0); %Eosinophils 0.4 % (0.0-10.0); %Monocytes 9.2 % (0.0-10.0); %Neutrophils 71.9 % (42.0-75.0); Mean Corpuscular HGB CONC 33.9 g/dL (32.0-36.0); Mean Corpuscular Hemoglobin 33.5 pg (27.0-31.0); Mean Corpuscular Volume 98.7 fL (78.0-98.0); Mean Platelet Volume 6.8 fL (7.4-10.4); Platelet Count 216 thou/uL (130-400); RBC Distribution Width 11.4 % (11.5-14.5); Red Blood Cell (RBC) Count 3.89 mill/uL (4.70-6.10); White Blood Cell (WBC) Count 8.8 thou/uL (4.8-10.8)
[2020-05-17 17:38] LABS: INR-International Normal Ratio 1.1; Prothrombin Time 14.1 sec (12.0-14.7)
[2020-05-17 18:00] LABS: ALT (SGPT) 23 U/L (8-55); AST (SGOT) 27 U/L (5-34); Albumin 3.7 g/dL (3.4-4.8); Alkaline Phosphatase 120 U/L (40-110); Anion Gap 17 mmol/L (10-20); BUN (Urea Nitrogen) 32 mg/dL (8.4-25.7); Bilirubin, Total 0.9 mg/dL (0.2-1.2); CK (CPK) 110 U/L (30-200); Calc. Creatinine Clearance 0 mL/min (70-130); Calcium 8.7 mg/dL (7.8-10.44); Carbon Dioxide 23 mmol/L (23-31); Chloride 98 mmol/L (98-107); Glucose 117 mg/dL (83-110); Potassium 4.1 mmol/L (3.5-5.1); Protein, Total 6.7 g/dL (5.8-8.1); Sodium 134 mmol/L (136-145)
[2020-05-17 18:18] LABS: CKMB 5.6 ng/mL (0-6.6)
[2020-05-17] MEDS ORDERED: Pantoprazole 80 MG, Admixture Fee 1 EACH in Sodium Chloride 0.9% 100 ML IVPB SCH (19:45)
--- NOTE | 2020-05-17 20:22 | CT ---
CT ABDOMEN AND PELVIS WITH IV CONTRAST 05/17/2020 CLINICAL INFORMATION: Abdominal pain and rectal bleeding. Loss of appetite and recent weight loss. COMPARISON: 03/31/2018 Technique: Multiple contiguous axial CT images are obtained through the abdomen and pelvis with IV contrast. Cor onal reformatted images are provided. FINDINGS: Lower Chest: Median sternotomy wires are seen. A 3 mm nodular density is seen in the right middle lob e which may represent a small calcified granuloma. Minimal chronic interstitial lung changes are seen at the posterior lung bases bilaterally. Vessels: Vascular calcifications are in atherosclerotic plaque are again seen in the abdominal aorta and involving the iliac arteries. Again noted is a focal infrarenal abdominal aortic aneurysm which measures 4.1 cm in greatest AP dimension. Previous measurement of 4 cm was obtained. The irregular at herosclerotic plaque is overall similar to slightly increased from prior exam. Abdomen: Portal vein:Right portal vein is not visualized compatible with right portal vein thrombosis which wa s seen on prior CT exam. Slight heterogeneity right hepatic lobe is present, but this has improved when compared to the prior exam. Overall volume of the right hepatic lobe has diminished when compare d to prior study. Gallbladder: Gas is present within the nondependent portion of the gallbladder lumen with gas seen in the region of the common duct and cystic duct as well as left hepatic ducts. Pneumobilia was also present on the prior exam. Calculus seen in the gallbladder lumen on prior study is not visualized on this exam. Liver: Heterogeneity right hepatic lobe noted on prior exam is less apparent. The heterogeneity on pr ior examination may have been related to the more acute portal vein thrombosis on that study. A discrete measurable lesion is not present. Spleen: within normal limits. Pancreas: within normal limits. Adrenals: within normal limits. Kidneys: Right renal cortical scarring is again present. There is significantly diminished enhancemen t of the left kidney compared to the right kidney with a larger area of greater diminished attenuation involving the superior pole left kidney. There is severe atherosclerotic irregularity and calcifications involving the origin and proximal left renal artery, and findings are likely due to decreased perfusion with probable infarction superior pole left kidney. Bowel: Evidence of colonic diverticulosis. Onofre of the sigmoid colon are mildly thickened, this is l ikely related to the diverticular disease and is similar to prior study. No pericolonic inflammatory changes are seen to suggest diverticulitis. Loops of small bowel are normal in caliber. Appendix: Not visualized. Peritoneum: No ascites or free air; no fluid collection. Mesentery and Retroperitoneum: No enlarged mesenteric or retroperitoneal lymph nodes. Abdominal Wall: within normal limits. Pelvis: Reproductive Organs: No pelvic masses. Bladder: Incompletely distended. Bones: Degenerative changes throughout the spine. IMPRESSION: 1. Diminished diffuse enhancement of the left kidney which is likely related to diminished perfusion secondary to severe atherosclerotic plaque and calcifications involving the origin and proximal left renal artery. This exam is obtained in arterial phase of enhancement, and there is diminished en hancement of the midportion of the left renal artery. Greater degree of diminished attenuation in the superior pole left kidney is likely related to renal infarction. 2. Cortical scarring right kidney. 3. Evidence of pneumobilia including gas within the gallbladder. Similar finding was seen on prior ex am. However, the pericholecystic fluid noted on prior exam as well as gallbladder calculi are no longer seen. 4. 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 There is an overall mild decrease in volume of th e right hepatic lobe compared to the prior exam. 5. Infrarenal abdominal aortic aneurysm measuring 4.1 cm in greatest dimension. There is irregular at herosclerotic plaque as well as prominent vascular calcifications in the abdominal aorta. 6. Colonic diverticulosis.
[2020-05-17 22:06] LABS: Troponin I 0.109 ng/mL (< 0.028)
[2020-05-17] MEDS ORDERED: hydrALAZINE 20 MG/ML VIAL SLOW IVP PRN (22:18)
[2020-05-17 22:44] LABS: Hemoglobin 11.7 g/dL (14.0-18.0)
[2020-05-17] MEDS ORDERED: Acetaminophen 325 MG TAB PO PRN (22:47)
--- NOTE | 2020-05-17 22:52 | PDOC.HHP ---
Hospitalist HPI REctal bleed History of Present Illness: This is an 89-year-old male patient with a history of hypertension, coronary artery disease at this post CABG, BPH who presents with bleeding per rectum. Patient notes that earlier in the day he started having some bright red blood in his stools. Was initially scanty. Later on in the morning he went to have his first Covid vaccination. Subsequent in the day he started having more frequent stools and he called his daughter and arranged to come to the ED for further travis luation. He denies any chest pain shortness of breath abdominal pain on my assessment. He also denies any dizziness or lightheadedness. No diarrhea constipation or hematuria frequency dysuria. He has coronary artery disease and has been on aspirin and Plavix for many years. His last stent was over a year ago but he does not remember how long ago that was. Last cardiac catheterization in chart was on 06/22/2014. He did not take his aspirin and Plavix this morning. On arrival his BP was 193/114, pulse 100, respiratory rate 20, temperature 98.9 and saturating 96% on room air. His labs showed WBC 8.8, hemoglobin 13.0, platelets 1 6. Chemistry shows sodium 134, BUN 32, creatinine 1.45 from a baseline of 0.85. About 6 months ago. Alkaline phosphatase was 120, troponin was 0.1. CT scan of his abdomen and pelvis was done which showed diminished diffuse enhancement of his left kidney likely due to atherosclerotic plaques, cortical scarring of right kidney, pneumobilia which apparently stable. Portal vein occlusion, abdominal aortic aneurysm, colonic diverticulosis. He was started on Protonix 80 mg. Hospitalist team consulted for admission. Allergies/Adverse Reactions: Allergy/AdvReac Type Severity Reaction Status Date / Time No Known Drug Allergies Allergy Verified 06/29/19 03:41 Home Medications: Medication Instructions Recorded Confirmed Type Clopidogrel Bisulfate [Clopidogrel] 75 mg PO DAILY 03/31/18 06/29/19 History Aspirin [Ecotrin Low Strength] 81 mg PO DAILY 04/23/18 06/29/19 History Metoprolol Succinate [Toprol Xl] 12.5 mg PO DAILY 04/23/18 06/29/19 History Nitroglycerin 0.4 mg SL Q5MIN PRN 12/11/18 06/29/19 History Lisinopril 2.5 mg PO DAILY #30 tablet 06/30/19 Rx Past History: PMHx: Coronary artery disease, hypertension, prostate cancer, CVA PSHx: CABG, prostate surgery FHx: None of significance Social:Former smoker, no alcohol or drug use. Hospitalist HPI ROS Constitutional: denies: fever, chills, sweats, weakness Respiratory: denies: cough, shortness of breath, hemoptysis, SOB with excertion Gastrointestinal: denies: nausea, vomiting, abdominal pain, diarrhea Genitourinary: denies: dysuria, frequency, incontinence, hematuria Musculoskeletal: denies: neck pain, shoulder pain, arm pain, back pain Neurological: denies: weakness, numbness, incoordination, change in speech All other systems reviewed; all pertinent +/- noted in HPI/Subj Hospitalist Exam General Appearance: awake alert General - other findings: In no acute distress Eye: PERRL, anicteric sclera ENT: normocephalic atraumatic Heart: RRR, no murmur, no gallops Respiratory: CTAB, no wheezes, no rales, no ronchi Gastrointestinal: soft, non-tender, non-distended, normal bowel sounds Neurological: cranial nerve grossly intact, no weakness, no focal deficits Psychiatric: normal affect, normal behavior, A&O x 3 Hospitalist Results Result Diagrams: 05/18/20 00:52 05/17/20 17:21 Lab results: Laboratory Last Values WBC 8.8 thou/uL (4.8-10.8) 05/17/20 17:20 RBC 3.89 mill/uL (4.70-6.10) L 05/17/20 17:20 Hgb 11.7 g/dL (14.0-18.0) L 05/17/20 22:26 Hct 33.7 % (42.0-52.0) L 05/17/20 22:26 MCV 98.7 fL (78.0-98.0) H 05/17/20 17:20 MCH 33.5 pg (27.0-31.0) H 05/17/20 17:20 MCHC 33.9 g/dL (32.0-36.0) 05/17/20 17:20 RDW 11.4 % (11.5-14.5) L 05/17/20 17:20 Plt Count 216 thou/uL (130-400) 05/17/20 17:20 MPV 6.8 fL (7.4-10.4) L 05/17/20 17:20 Neutrophils % 71.9 % (42.0-75.0) 05/17/20 17:20 Lymphocytes % 18.0 % (21.0-51.0) L 05/17/20 17:20 Monocytes % 9.2 % (0.0-10.0) 05/17/20 17:20 Eosinophils % 0.4 % (0.0-10.0) 05/17/20 17:20 Basophils % 0.5 % (0.0-1.0) 05/17/20 17:20 Neutrophils # 6.3 thou/uL (1.40-6.50) 05/17/20 17:20 Lymphocytes # 1.6 thou/uL (1.20-3.40) 05/17/20 17:20 Monocytes # 0.8 thou/uL (0.11-0.59) H 05/17/20 17:20 Eosinophils # 0.0 thou/uL (0.0-0.7) 05/17/20 17:20 Basophils # 0.0 thou/uL (0.0-0.2) 05/17/20 17:20 PT 14.1 sec (12.0-14.7) 05/17/20 17:20 INR 1.1 05/17/20 17:20 APTT 32.0 sec (22.9-36.1) 05/17/20 17:20 Sodium 134 mmol/L (136-145) L 05/17/20 17:21 Potassium 4.1 mmol/L (3.5-5.1) 05/17/20 17:21 Chloride 98 mmol/L (98-107) 05/17/20 17:21 Carbon Dioxide 23 mmol/L (23-31) 05/17/20 17:21 Anion Gap 17 mmol/L (10-20) 05/17/20 17:21 BUN 32 mg/dL (8.4-25.7) H 05/17/20 17:21 Creatinine 1.45 mg/dL (0.7-1.3) H 05/17/20 17:21 Estimated GFR (MDRD) 46 05/17/20 17:21 Glucose 117 mg/dL (83-110) H 05/17/20 17:21 Calcium 8.7 mg/dL (7.8-10.44) 05/17/20 17:21 Total Bilirubin 0.9 mg/dL (0.2-1.2) 05/17/20 17:21 AST 27 U/L (5-34) 05/17/20 17:21 ALT 23 U/L (8-55) 05/17/20 17:21 Alkaline Phosphatase 120 U/L (40-110) H 05/17/20 17:21 Creatine Kinase 110 U/L (30-200) 05/17/20 17:21 CK-MB (CK-2) 5.6 ng/mL (0-6.6) 05/17/20 17:21 Troponin I 0.109 ng/mL (< 0.028) H 05/17/20 21:33 Serum Total Protein 6.7 g/dL (5.8-8.1) 05/17/20 17:21 Albumin 3.7 g/dL (3.4-4.8) 05/17/20 17:21 Globulin 3.0 g/dL (2.4-3.5) 05/17/20 17:21 Albumin/Globulin Ratio 1.2 g/dL (1.2-2.2) 05/17/20 17:21 Blood Type A POSITIVE 05/17/20 17:20 Antibody Screen NEGATIVE 05/17/20 17:20 Hospitalist H&P A/P Plan: This is an 89-year-old male patient history of coronary disease status post CABG, hypertension who presents with lower GI bleed of 8 days duration. Lower GI bleed Likely diverticular Follow H&H Transfuse if hemoglobin less than 7 GI consult in a.m.GI has been notified about Hypertensive urgency Systolic blood pressure in the 190s at presentation Mild elevation in troponin however given his continuous blood loss we will monitor closely as needed hydralazine 5 mg if needed. Monitor on telemetry. Elevated troponin Unlikely ACShas no chest pain and no acute ST segment and T wave changes Possibly due to hypertension We will monitor closely on telemetry We will hold aspirin and Plavix to morning given ongoing GI bleed Cardiology consult. Peripheral vascular disease Continue home BP medications once verified. CKD/possible SHAYLA Likely CKD given kidney changes on CT Cannot rule out SHAYLA from hypertension BP however gradually coming down as he is bleeding Check UA, gentle hydration We will monitor Consider nephrology consult in a.m. Hepatic vein occlusion Noted on CT Unclear implication of this Can also consider GI if indicated. VT prophylaxisSCD CODE STATUSfull
[2020-05-18 01:00] LABS: Hemoglobin 11.6 g/dL (14.0-18.0)
[2020-05-18 01:24] LABS: Troponin I 0.142 ng/mL (< 0.028)
[2020-05-18] MEDS ORDERED: Sodium Chloride 0.9% 1,000 ML IV SCH (04:30)
--- NOTE | 2020-05-18 05:06 | PDOC.BPN ---
- Brief Progress Note Encounter Date: 05/18/20 Patient was apparently doing well until nurse found him in his room with blood all over the floor. He was confused and had pulled out his IV. There was also blood in the sink and is unclear whether he fell. He seemed to be more weak and needs help to move around. His systolic blood pressure was around 160. We will transfer him to a room where he can be more closely monitored Repeat H&H CT scan of his head I called his daughter to update her on his status
[2020-05-18] MEDS: Dextrose 5 %-0.45 % NaCl 1,000 ML IV SCH ×2 (05:54→14:22)
[2020-05-18 07:05] LABS: #Lymphocytes 3.1 thou/uL (1.20-3.40); #Monocytes 0.5 thou/uL (0.11-0.59); #Neutrophils 6.9 thou/uL (1.40-6.50); %Basophils 0.3 % (0.0-1.0); %Eosinophils 0.4 % (0.0-10.0); %Lymphocytes 29.8 % (21.0-51.0); %Monocytes 4.8 % (0.0-10.0); %Neutrophils 64.8 % (42.0-75.0); Hemoglobin 11.9 g/dL (14.0-18.0); Mean Corpuscular HGB CONC 33.5 g/dL (32.0-36.0); Mean Corpuscular Hemoglobin 33.3 pg (27.0-31.0); Mean Corpuscular Volume 99.4 fL (78.0-98.0); Platelet Count 214 thou/uL (130-400); RBC Distribution Width 11.4 % (11.5-14.5); Red Blood Cell (RBC) Count 3.58 mill/uL (4.70-6.10); White Blood Cell (WBC) Count 10.6 thou/uL (4.8-10.8)
[2020-05-18 07:24] LABS: Anion Gap 18 mmol/L (10-20); BUN (Urea Nitrogen) 29 mg/dL (8.4-25.7); Calc. Creatinine Clearance 0 mL/min (70-130); Calcium 8.6 mg/dL (7.8-10.44); Carbon Dioxide 24 mmol/L (23-31); Chloride 98 mmol/L (98-107); Glucose 174 mg/dL (83-110); Potassium 3.8 mmol/L (3.5-5.1); Sodium 136 mmol/L (136-145)
--- NOTE | 2020-05-18 07:35 | CT ---
PRELIMINARY REPORT/DIRECT RADIOLOGY/EMERGENCY AFTER HOURS PROCEDURE: EXAM: CT Head Without Intravenous Contrast. CLINICAL HISTORY: INPATIENT HOLD// PREVIOUS ON PACS// PT FOUND OUT OF BED, ALTERED.. HAD DISCONTINUED IV ON THIER OWN, BASELINE WAS A&Ox4, NOW A&Ox0. TECHNIQUE: Axial computed tomography images of the head/brain without intravenous contrast. COMPARISON: CT\SR - CT BRAIN WO CON - 01/28/2016 10:21 AM CDT FINDINGS: BRAIN: No acute intraparenchymal hemorrhage. No mass lesion. No CT evidence for acute territorial inf arct. No midline shift or extra-axial collection. Again noted is encephalomalacia within the left parietal and parieto-occipital region from remote infarction, unchanged since prior study. VENTRICLES: No hydrocephalus. ORBITS: The orbits are unremarkable. SINUSES AND MASTOIDS: The paranasal sinuses and mastoid air cells are clear. SOFT TISSUES: No significant facial or scalp soft tissue swelling evident. No radiopaque foreign body is seen. BONES: No acute skull fracture. IMPRESSION: No acute intracranial abnormality. Again noted is evidence of remote infarction within th e left parietal and parietal occipital region. ELECTRONICALLY SIGNED BY: Dejuan Tavarez MD May 18, 2020 5:57:56 AM [employer]IGAR [employer]KING [employer]PER[employer]OR FINAL REPORT HEAD CT WITHOUT CONTRAST: DATE: 05/18/2020. COMPARISON: 01/28/2016. HISTORY: Disoriented patient, patient found out of bed altered. FINDINGS: The imaged paranasal sinuses and mastoid air cells appear well-aerated. There is no displaced calvari al fracture noted. There is atherosclerotic calcification involving the cavernous carotid arteries and the distal vertebral arteries. No intracranial hemorrhage, midline shift, or mass effect. There a re areas of encephalomalacia consistent with prior infarction within the posterior left frontal lobe and within the posterior left parieto-occipital region, stable when compared to the prior examin ation. IMPRESSION: Chronic findings as detailed above. No intracranial hemorrhage, midline shift, or mass effect. If the re is clinical concern for acute infarction, followup brain MRI suggested. Transcribed Date/Time: 05/18/2020 7:47 AM
--- NOTE | 2020-05-18 08:09 | CON ---
DATE OF CONSULTATION: 05/18/2020 HISTORY OF PRESENT ILLNESS: The patient is an 89-year-old gentleman who presented with some bright red blood per rectum. According to nursing personnel, he has had three bloody bowel movements overnight. He describes his stools as marooned in color, dark. He denied any chest pain, abdominal pain, or nausea or vomiting. He has been on aspirin and Plavix for many years for cardiac stent. He has become somewhat confused in the hospital and does not add anything to history of present illness. PAST MEDICAL HISTORY: Significant for coronary artery disease, hypertension, prostate cancer, and cerebrovascular accident. PAST SURGICAL HISTORY: Includes coronary artery bypass and prostate surgery. HOME MEDICATIONS: Include; 1. Nitroglycerin 0.4 mg sublingual q.5 minutes. 2. Metoprolol 12.5 mg p.o. daily. 3. Lisinopril 2.5 mg p.o. daily. 4. Plavix 75 mg p.o. daily. 5. Aspirin 81 mg p.o. daily. ALLERGIES: NO KNOWN ALLERGIES. SOCIAL HISTORY: Does not smoke or drink. FAMILY HISTORY: Unobtainable. REVIEW OF SYSTEMS: Unobtainable. PHYSICAL EXAMINATION: GENERAL: Shows an elderly male, in no acute distress. HEENT: Unremarkable. CHEST: Clear. CARDIOVASCULAR: Regular rate and rhythm. ABDOMEN: Soft, nontender without organomegaly or masses. Bowel sounds are present, normoactive. RECTAL: Deferred. EXTREMITIES: Normal. NEUROLOGIC: Nonfocal. LABORATORY DATA: Show hemoglobin on admission of 13.0. Subsequent hemoglobins are 11.7, 11.6, and 11.9. PT is 14.1 with an INR of 1.1. Chemistry significant for sodium of 134, BUN 32, creatinine 1.45, glucose 117, alkaline phosphatase 120. Troponin has been elevated at 0.110. Abdominopelvic CT shows diminished diffuse enhancement of the left kidney, cortical scarring of the right kidney, pneumobilia, chronic right portal vein occlusion, infrarenal abdominal aortic aneurysm, and colonic diverticulosis. ASSESSMENT: 1. Gastrointestinal bleed - unsure if this is lower or upper. He seems to be hemodynamically stable, and hemoglobin and hematocrit seem to be stable. 2. Pneumobilia - the patient had prior ERCP and sphincterotomy. 3. Chronic right portal vein thrombosis. 4. Confusion. 5. Coronary artery disease, on aspirin and Plavix. RECOMMENDATIONS: 1. We will go ahead and perform EGD to rule out upper GI source of his bleeding. 2. PPI. 3. Serial hemoglobin and hematocrit. 4. Ammonia. 5. Hold aspirin and Plavix presently. Job ID: [id number]
[2020-05-18 08:47] LABS: SARS-CoV-2 NAA Rapid Test Not Detected (NotDetected)
[2020-05-18] MEDS ORDERED: Nitroglycerin 2% Ointment 1 INCH/1 GM Packet ONE (08:48)
--- NOTE | 2020-05-18 08:51 | PQF ---
CLINICAL DOCUMENTATION CLARIFICATION FORM: Dear Dr. BERNARDA FRIEDMAN Date: 05-18-20 Please exercise your independent, professional judgment in responding to the clarification form. Clinical indicators are provided on the bottom of this form for your review. Please check appropriate box(es): [ ] Encephalopathy: Type: [x ] Acute [ ] Subacute [ ] Chronic Etiology: [ ] Hypertensive [ ] Metabolic [ ] Toxic [ x ] Other (please specify) __unknown etiology [ x ] Transient Alteration of Awareness [ ] Other diagnosis [ ] Unable to determine In addition, please specify: Present on Admission (POA): [ ] Yes [ x ] No [ ] Unable to determine For continuity of documentation, please document condition throughout progress notes and discharge summary. Thank You. To be completed by CDI/Coding staff for physician review: CLINICAL INDICATORS - SIGNS / SYMPTOMS / LABS / RESULTS AND LOCATION IN EMR: H&P: 05-17-20: LOWER GI BLEED, HTN URGENCY, ELEVATED TROPONIN, PVD, CKD POSSIBLE SHAYLA, HEPATIC VEIN OCCLUSION CONSULT NOTE DR. POOLE: HE HAS BECOME SOMEWHAT CONFUSED IN THE HOSPITAL AND DOES NOT ADD ANYTHING TO HISTORY OF PRESENT ILLNESS. GI BLEED, PNEUMOBILIA, CHRONIC RIGHT PORTAL VEIN THROMBOSIS, CONFUSION, CAD RISK FACTORS / RESULTS AND LOCATION IN EMR: H&P: 05-17-20: LOWER GI BLEED, HTN URGENCY, ELEVATED TROPONIN, PVD, CKD POSSIBLE SHAYLA, HEPATIC VEIN OCCLUSION TREATMENTS / RESULTS AND LOCATION IN EMR: DEXTROSE 5%-0.45% NACL IVF CDS Signature: Dorene Santiago Phone #: [phone] Date/Time: 05-18-20 This is a permanent part of the Medical Record [facility]
[2020-05-18 09:19] LABS: Bilirubin Negative (Negative); Blood, Urine Trace (Negative); Clarity Clear (Clear); Glucose, Urine (Dipstick) Normal (Negative); Ketone, Urine 10 mg/dL (Negative); Leukocyte Negative Leu/uL (Negative); Nitrite Negative (Negative); Protein, Urine (Dipstick) 100 mg/dL (Neg-Trace); pH, Urine 6.5 (5.0-9.0)
[2020-05-18] MEDS ORDERED: Nitroglycerin 2% Ointment 1 INCH/1 GM Packet TOP SCH (09:30)
[2020-05-18] MEDS ORDERED: Lidocaine 1% PF 5 ML VIAL ONE (11:08)
[2020-05-18] MEDS ORDERED: PROPOFOL 200 MG/20 ML VIAL ONE (11:08)
--- NOTE | 2020-05-18 11:41 | CON ---
DATE OF CONSULTATION: 05/18/2020 INDICATION FOR CONSULTATION: This is an 89-year-old gentleman who presented to the emergency room with a GI bleed. We were asked to see him after he had slight increase in cardiac enzymes, with his troponin I to be more specific. HISTORY OF PRESENT ILLNESS: This very pleasant 89-year-old gentleman who does have a history of coronary artery disease, who underwent bypass surgery approximately [address] Mcfadden. He has done remarkably well since that time. He had a cardiac catheterization in 2014 after he presented having episodes of chest discomfort. At that time, he was found to have a 50% stenosis in the saphenous vein graft to the right coronary artery and also the posterior lateral branch of the right coronary artery had a 50% narrowing in the distal vessel, but this vessel also was filling retrograde from the left system. Ejection fraction at that time was 50% to 55%. All of his [place] vessels were 100% occluded. He did have saphenous vein graft to the right coronary artery, diagonal branch, and obtuse marginal branch. These all remained patent. He also had a [place] OCA to the left anterior descending artery, which was patent. There was no significant stenosis or disease beyond the anastomotic site except in the posterior lateral branch of the right coronary artery. He presented again in 2019 and underwent stress testing which showed no evidence of ischemia. He had ejection fraction by nuclear study about 63%. He presented at this time with a GI bleed, and cardiac enzymes were obtained. He has been on Plavix and aspirin. His cardiac enzymes showed a troponin I of 0.11, then decreased down to 0.109 and then now slightly increased up to 0.142. These are all essentially not indicative of myocardial infarction. If anything, most likely indicates type 2 myocardial infarction. He denies any chest pain or shortness of breath. He mainly came in because he was having some abdominal discomfort and had noticed some blood in his stools. Unfortunately at this time, also, his blood pressure was significantly elevated at 192/118. He has not been treated for his hypertension. He does have some orthostatic hypotension. When he gets up, the blood pressure decreases, but while lying down, blood pressure still almost 200 systolically and he has not been treated yet with medications to lower the blood pressure. PAST MEDICAL HISTORY: Significant for coronary artery disease, hypertension, dyslipidemia, prostate cancer, history of CVAs in the past, history of atrial flutter which is undergone an ablation. He has had history of diverticulosis. He has peripheral vascular disease. He has chronic kidney disease. He has had bypass surgery as noted above. He has had a cardiac catheterization as noted above. He has carotid artery disease. MEDICATION LIST: Please see the nursing list. ALLERGIES: NONE. SOCIAL HISTORY: He is not a smoker. FAMILY HISTORY: Unremarkable for any early heart disease. REVIEW OF SYSTEMS: A 12-point review of systems is unremarkable except for the History of Present Illness. MEDICATIONS: At home, include: 1. Nitroglycerin. 2. Metoprolol. 3. Lisinopril. 4. Plavix. 5. Aspirin. At this time, the aspirin and Plavix are being held. He will undergo an endoscopy today. PHYSICAL EXAMINATION: GENERAL: Reveals an actually well-developed, well-nourished gentleman for his age at 89 years old. He is very alert at this time. VITAL SIGNS: His blood pressure is 192/118, respiratory rate is 20, heart rate is 96 and regular, and O2 saturation 96%. HEENT: Unremarkable. CHEST: Clear to auscultation. CARDIOVASCULAR: Reveals a regular rate and rhythm. He has a well-healed midline surgical incision. There were no gross murmurs. ABDOMINAL EXAM: Soft. He has positive bowel sounds. EXTREMITIES: Show no clubbing, cyanosis, or edema. He has pedal pulses which are present. It is slightly decreased on the right side compared to the left, but they are present. NEUROLOGICAL: Unremarkable. LABORATORY DATA: Show sodium of 136, potassium 3.8, BUN was 29, and creatinine 1.42. Blood sugar was 174. Troponin as noted above. His MB was only 5.6, INR was 1.1. Hemoglobin was 11.9, hematocrit 35.6, WBC of 10.6, and platelet count 214,000. EKG shows a normal sinus rhythm with T-wave inversions in V1 through V3, but no acute ST-segment elevations. I do not have any old EKGs at this time for comparison. IMPRESSION: 1. An 89-year-old gentleman with acute gastrointestinal bleed. He has been seen by Gastroenterology. His Plavix and aspirin have been held. He will undergo an upper endoscopy today. His hemoglobin still remains relatively stable. 2. History of coronary artery disease and bypass surgery by previous cardiac catheterization in 2014. The coronary arteries and grafts have remained stable. 3. At that time, he also had an echocardiogram which showed evidence of diastolic dysfunction 1/3 with moderate mitral valve regurgitation. This is an echo in 2018, ejection fraction was 50% to 55% and most recent stress test was in 1 year ago, which showed no evidence of ischemia. 4. History of hypertension. The patient most likely has some degree of orthostatic hypotension also. His blood pressure elevated at 192/118. I will suggest they place at least 1 inch of nitroglycerin paste at this time to lower the blood pressure. This will need to be wiped off if he gets up. He will need to be evaluated for orthostatic hypotension. He has not had this complaint before. It may be due to the illness at this time with a gastrointestinal bleed. We will see whether or not he remains stable. 5. History of irregular heart rate and atrial flutter in the past. At this time, he remains in sinus rhythm. 6. Dyslipidemia. Once he becomes stable from a gastrointestinal bleeding and can start taking p.o. again, would suggest he resume his medications for his dyslipidemia. I do not see that he is on any medications at this time for his cholesterol and this will need to be reinstated. We will be more than happy to continue to follow the patient with you, but at this time, from a Cardiac standpoint, he appears to be stable and most likely this slight increase in the cardiac enzymes is due to stress and most likely, this can be classified as a type 2 [id number] elevation myocardial infarction. Job ID: [id number]
[2020-05-18 14:30] VITALS: BMI 23.7
[2020-05-18] MEDS ORDERED: Nitroglycerin 0.4 MG TAB (25 Tab Bottle) SL PRN (16:42)
[2020-05-18] MEDS ORDERED: GoLYTELY 4,000 ml Bottle PO SCH (17:00)
--- NOTE | 2020-05-18 17:02 | PDOC.HOSPP ---
- Subjective Encounter Date: 05/18/20 Encounter Time: 07:30 Subjective: Patient seen in follow-up for acute metabolic encephalopathy. He is pleasantly confused, unable to provide much history. - Objective Vital Signs & Weight: Vital Signs (12 hours) Temp Pulse Resp BP Pulse Ox 05/18/20 15:36 82 18 184/93 H 98 05/18/20 15:35 88 05/18/20 14:05 97.6 F 88 16 189/95 H 97 Weight Weight 146 lb 14.4 oz Result Diagrams: 05/18/20 05:05 05/18/20 05:05 Additional Labs: Accuchecks 05/18/20 05:30 POC Glucose 163 H Labs and MAR reviewed by me EKG Reviewed by me: Yes (Telemetry shows normal sinus rhythm) Hospitalist ROS - Review of Systems ROS unobtainable: due to mental status - Medication Medications: Active Medications Generic Name Dose Route Start Last Admin Trade Name Freq PRN Reason Stop Dose Admin Hydralazine HCl 5 mg 05/17/20 22:18 05/18/20 15:35 Hydralazine 20 Mg/Ml Vial SLOW IVP 05/18/20 22:19 5 mg ONE PRN Administration Hypertension Dextrose/Sodium Chloride 1,000 mls @ 100 mls/hr 05/18/20 05:15 05/18/20 14:22 D5 1/2 Ns IV 1,000 mls .Q10H KARIE Administration Hospitalist Exam Vitals: Vital Signs (12 hours) Temp Pulse Resp BP Pulse Ox 05/18/20 15:36 82 18 184/93 H 98 05/18/20 15:35 88 05/18/20 14:05 97.6 F 88 16 189/95 H 97 Weight Weight 146 lb 14.4 oz General Appearance: awake alert Eye: anicteric sclera ENT: normocephalic atraumatic Neck: supple Heart: RRR Respiratory: CTAB Gastrointestinal: soft, non-tender Skin: no rashes Psychiatric: normal affect, normal behavior, oriented to person Hosp A/P - Plan Acute metabolic encephalopathy Likely delirium Reorient patient - GI bleed -Acute blood loss anemia GI consulted Will likely need scope studies Hypertensive urgency Improved Patient reportedly has significant orthostatic hypotension, will need to be careful with antihypertensives. Elevated troponin Likely non-ST elevation myocardial infarction type II secondary to GI bleed CKD Stable Hepatic vein occlusion GI consulted
--- NOTE | 2020-05-18 19:56 | OP ---
DATE OF PROCEDURE: 05/18/2020 PREOPERATIVE DIAGNOSIS: Gastrointestinal bleed. DESCRIPTION OF PROCEDURE: After informed consent was obtained, the patient was placed in the left lateral decubitus position. Anesthesia administered per the Anesthesia Department. Forward-viewing endoscope was inserted in esophagus under direct visualization with ease and passed to the second portion of the duodenum with ease and the third portion of the duodenum were not reached by the endoscope. There were some red erythematous areas. These were not flat and therefore unlikely to be AVMs. They were not bleeding. The second portion of duodenum and duodenal bulb were normal. The pylorus, antrum, body, fundus, and cardia showed diffuse gastritis without active bleeding. Biopsies were taken. The stomach mucosa in general looked atrophic. Retroflexion in stomach was normal. Esophagus was normal throughout. ASSESSMENT: 1. Small red lesions in the third portion of the duodenum, not actively bleeding, doubt arteriovenous malformations. 2. Diffuse atrophic gastritis-status post biopsy. 3. Otherwise, normal esophagogastroduodenoscopy. RECOMMENDATIONS: 1. Colonoscopy tomorrow. 2. Continue PPI once daily. Job ID: [id number]
[2020-05-19] MEDS: hydrALAZINE 20 MG/ML VIAL SLOW IVP PRN (01:52)
[2020-05-19] MEDS: Dextrose 5 %-0.45 % NaCl 1,000 ML IV SCH ×3 (02:08→19:43)
[2020-05-19 04:41] LABS: #Lymphocytes 1.7 thou/uL (1.20-3.40); #Monocytes 0.6 thou/uL (0.11-0.59); #Neutrophils 5.9 thou/uL (1.40-6.50); %Basophils 0.1 % (0.0-1.0); %Eosinophils 0.6 % (0.0-10.0); %Lymphocytes 20.3 % (21.0-51.0); %Monocytes 6.7 % (0.0-10.0); %Neutrophils 72.3 % (42.0-75.0); Hemoglobin 10.7 g/dL (14.0-18.0); Mean Corpuscular HGB CONC 34.6 g/dL (32.0-36.0); Mean Corpuscular Hemoglobin 34.1 pg (27.0-31.0); Mean Corpuscular Volume 98.6 fL (78.0-98.0); Mean Platelet Volume 7.2 fL (7.4-10.4); Platelet Count 196 thou/uL (130-400); RBC Distribution Width 11.4 % (11.5-14.5); Red Blood Cell (RBC) Count 3.15 mill/uL (4.70-6.10); White Blood Cell (WBC) Count 8.2 thou/uL (4.8-10.8)
[2020-05-19 04:56] LABS: Anion Gap 14 mmol/L (10-20); BUN (Urea Nitrogen) 20 mg/dL (8.4-25.7); Calc. Creatinine Clearance 44 mL/min (70-130); Calcium 8.2 mg/dL (7.8-10.44); Carbon Dioxide 26 mmol/L (23-31); Chloride 96 mmol/L (98-107); Glucose 145 mg/dL (83-110); Potassium 3.3 mmol/L (3.5-5.1); Sodium 133 mmol/L (136-145)
[2020-05-19] MEDS: Amlodipine 5 MG TAB PO SCH (09:38)
[2020-05-19] MEDS ORDERED: GoLYTELY 4,000 ml Bottle PO SCH (13:00)
--- NOTE | 2020-05-19 13:07 | PRG ---
DATE OF SERVICE: 05/19/2020 SUBJECTIVE: The patient is feeling better. He seems less confused today. He is drinking his prep, although he had not drank it for today's procedure. He has had no bleeding. No abdominal pain. OBJECTIVE: VITAL SIGNS: Temperature 98.7, pulse 81, respiratory rate 16, blood pressure 172/91. CHEST: Clear. CARDIOVASCULAR: Regular rate and rhythm. ABDOMEN: Soft, nontender without organomegaly or masses. LABORATORY DATA: Potassium 3.3, glucose 145. Hemoglobin is 10.7, hematocrit is 31.1. ASSESSMENT: 1. Gastrointestinal bleed. 2. Chronic right portal vein thrombosis. 3. Confusion-resolved. 4. Coronary artery disease. RECOMMENDATIONS: 1. Colonoscopy for a.m. 2. Serial hemoglobin and hematocrit. Job ID: [id number]
--- NOTE | 2020-05-19 18:40 | EKG ---
Test Reason : Blood Pressure : / mmHG Vent. Rate : 093 BPM Atrial Rate : 093 BPM P-R Int : 134 ms QRS Dur : 092 ms QT Int : 366 ms P-R-T Axes : 037 017 065 degrees QTc Int : 455 ms Normal sinus rhythm Possible Left atrial enlargement Incomplete right bundle branch block Inferior infarct , age undetermined Anterior infarct , age undetermined Abnormal ECG Confirmed by CHARLOTTE ORTEGA ([id number]), avid editor CHETAN LAINEZ ([id number]) on 05/19/2020 6:40:24 PM Referred By: Confirmed By:CHARLOTTE ORTEGA
--- NOTE | 2020-05-19 18:55 | PDOC.HOSPP ---
- Subjective Encounter Date: 05/19/20 Encounter Time: 12:00 Subjective: Patient seen for follow-up regarding GI bleed. He denies chest pain or shortness of breath. He denies nausea or vomiting. - Objective Vital Signs & Weight: Vital Signs (12 hours) Temp Pulse Resp BP BP BP BP 05/19/20 15:53 98.3 F 77 20 167/86 H 05/19/20 15:32 145/69 H 120/61 169/85 H 05/19/20 11:18 98.7 F 81 16 172/91 H 05/19/20 06:55 98.6 F 86 18 132/79 Pulse Ox 05/19/20 15:53 97 05/19/20 15:32 05/19/20 11:18 99 05/19/20 06:55 98 Weight Admit Weight 146 lb 14.4 oz Weight 146 lb 14.4 oz I&O: 05/18/20 05/19/20 05/20/20 06:59 06:59 06:59 Intake Total 1650 1450 Output Total 550 700 Balance 1100 750 Result Diagrams: 05/19/20 03:57 05/19/20 03:57 Additional Labs: I reviewed patient's labs and MAR EKG Reviewed by me: Yes (Normal sinus rhythm on telemetry) Hospitalist ROS - Review of Systems Cardiovascular: denies: chest pain, palpitations, orthopnea, paroxysmal noc. dyspnea, edema, light headedness, other Genitourinary: denies: dysuria, frequency, incontinence, hematuria, retention - Medication Medications: Active Medications Generic Name Dose Route Start Last Admin Trade Name Freq PRN Reason Stop Dose Admin Amlodipine Besylate 5 mg 05/19/20 09:00 05/19/20 09:38 Amlodipine 5 Mg Tab PO 5 mg DAILY KARIE Administration Hydralazine HCl 10 mg 05/19/20 00:36 05/19/20 01:52 Hydralazine 20 Mg/Ml Vial SLOW IVP 10 mg Q4H PRN Administration SBP > 180 and HR < 70 Dextrose/Sodium Chloride 1,000 mls @ 100 mls/hr 05/18/20 05:15 05/19/20 09:40 D5 1/2 Ns IV 1,000 mls .Q10H KARIE Administration Polyethylene Glycol/Electrolytes 4,000 ml 05/19/20 13:00 05/19/20 13:22 Golytely 4,000 Ml Bottle PO 05/19/20 23:59 Not Given [facility] Hospitalist Exam Vitals: Vital Signs (12 hours) Temp Pulse Resp BP BP BP BP 05/19/20 15:53 98.3 F 77 20 167/86 H 05/19/20 15:32 145/69 H 120/61 169/85 H 05/19/20 11:18 98.7 F 81 16 172/91 H 05/19/20 06:55 98.6 F 86 18 132/79 Pulse Ox 05/19/20 15:53 97 05/19/20 15:32 05/19/20 11:18 99 05/19/20 06:55 98 Weight Admit Weight 146 lb 14.4 oz Weight 146 lb 14.4 oz General Appearance: awake alert Eye: anicteric sclera ENT: moist mucosa Neck: supple Heart: RRR Respiratory: CTAB Gastrointestinal: soft, non-tender Skin: no rashes Psychiatric: normal affect, normal behavior Hosp A/P - Plan Acute metabolic encephalopathy Improved - GI bleed -Acute blood loss anemia Atrophic gastritis on EGD; colonoscopy today Hypertensive urgency Improved Elevated troponin Likely non-ST elevation myocardial infarction type II secondary to GI bleed CKD Stable Hepatic vein occlusion
[2020-05-20 04:45] LABS: #Lymphocytes 1.3 thou/uL (1.20-3.40); #Monocytes 0.6 thou/uL (0.11-0.59); #Neutrophils 5.7 thou/uL (1.40-6.50); %Basophils 0.1 % (0.0-1.0); %Eosinophils 0.4 % (0.0-10.0); %Lymphocytes 17.3 % (21.0-51.0); %Monocytes 8.3 % (0.0-10.0); %Neutrophils 73.9 % (42.0-75.0); Hemoglobin 10.2 g/dL (14.0-18.0); Mean Corpuscular HGB CONC 35.1 g/dL (32.0-36.0); Mean Corpuscular Hemoglobin 34.2 pg (27.0-31.0); Mean Corpuscular Volume 97.5 fL (78.0-98.0); Mean Platelet Volume 6.7 fL (7.4-10.4); Platelet Count 164 thou/uL (130-400); RBC Distribution Width 11.1 % (11.5-14.5); White Blood Cell (WBC) Count 7.7 thou/uL (4.8-10.8)
[2020-05-20 05:05] LABS: Anion Gap 14 mmol/L (10-20); BUN (Urea Nitrogen) 11 mg/dL (8.4-25.7); Calc. Creatinine Clearance 49 mL/min (70-130); Carbon Dioxide 26 mmol/L (23-31); Chloride 92 mmol/L (98-107); Glucose 143 mg/dL (83-110); Sodium 129 mmol/L (136-145)
[2020-05-20 05:11] LABS: Potassium 2.8 mmol/L (3.5-5.1)
[2020-05-20] MEDS: Dextrose 5 %-0.45 % NaCl 1,000 ML IV SCH ×2 (05:46→16:24)
[2020-05-20] MEDS ORDERED: Electrolyte Replacement Protocol FS PRN (06:30)
[2020-05-20] MEDS ORDERED: Magnesium 2 GM/50 ML 2 GM in Premix Bag 1 BAG IVPB SCH (07:15)
[2020-05-20] MEDS ORDERED: Potassium Chloride 40 MEQ in Sodium Chloride 0.9% 250 ML 250 ML IVPB SCH (08:00)
[2020-05-20] MEDS: Amlodipine 5 MG TAB PO SCH (09:27)
[2020-05-20] MEDS: Potassium Chloride 40 MEQ in Sodium Chloride 0.9% 250 ML 250 ML IVPB SCH ×2 (09:28→15:09)
--- NOTE | 2020-05-20 11:41 | PRG ---
DATE OF SERVICE: 05/20/2020 SUBJECTIVE: The patient is without GI complaints. He is totally oriented and coherent. He is complaining of no abdominal pain. He has had no nausea or vomiting. He has had no diarrhea. He did drink about GoLYTELY, but not enough to proceed with his colonoscopy. OBJECTIVE: VITAL SIGNS: Temperature 97.8, pulse 78, respiratory rate 16, blood pressure 173/90. CHEST: Clear. CARDIOVASCULAR: Regular rate and rhythm. ABDOMEN: Benign. LABORATORY DATA: Shows a hemoglobin 10.2, hematocrit 29.2. Chemistry; significant for sodium 129, potassium 2.8, chloride 92, glucose 143. ASSESSMENT: 1. Gastrointestinal bleed-H and H are stabilized. His bleeding seems to have abated, bur presently, we do not have a source. 2. Chronic right portal vein thrombosis. 3. Confusion-resolved. 4. Coronary artery disease. RECOMMENDATIONS: 1. Retry for colonoscopy in a.m. 2. Serial hemoglobin, hematocrit. 3. Alpha fetoprotein. Job ID: [id number]
[2020-05-20] MEDS ORDERED: GoLYTELY 4,000 ml Bottle PO SCH (17:00)
[2020-05-20] MEDS ORDERED: Cepastat Lozenges 1 LOZ PO PRN (17:37)
--- NOTE | 2020-05-20 17:39 | PDOC.HOSPP ---
- Subjective Encounter Date: 05/20/20 Encounter Time: 10:30 Subjective: Patient seen for follow-up regarding acute metabolic encephalopathy. More alert today, denies chest pain or shortness of breath. Complains of sore throat. - Objective Vital Signs & Weight: Vital Signs (12 hours) Temp Pulse Resp BP Pulse Ox 05/20/20 16:39 97.6 F 94 18 178/97 H 98 05/20/20 11:30 98.2 F 87 16 173/88 H 97 05/20/20 07:20 97.8 F 78 16 173/90 H 98 Weight Admit Weight 146 lb 14.4 oz Weight 146 lb 14.4 oz I&O: 05/19/20 05/20/20 05/21/20 06:59 06:59 06:59 Intake Total 1650 1450 1680 Output Total 805 634 6417 Balance 1100 750 680 Result Diagrams: 05/20/20 04:32 05/20/20 04:32 Additional Labs: Labs and MAR reviewed by me EKG Reviewed by me: Yes (Telemetry shows normal sinus rhythm) Hospitalist ROS - Review of Systems ENT: reports: throat pain Cardiovascular: denies: chest pain, palpitations, orthopnea, paroxysmal noc. dyspnea, edema, light headedness Gastrointestinal: denies: nausea, vomiting, abdominal pain, diarrhea, constipation, melena, hematochezia - Medication Medications: Active Medications Generic Name Dose Route Start Last Admin Trade Name Freq PRN Reason Stop Dose Admin Amlodipine Besylate 5 mg 05/19/20 09:00 05/20/20 09:27 Amlodipine 5 Mg Tab PO 5 mg DAILY KARIE Administration Hydralazine HCl 10 mg 05/19/20 00:36 05/19/20 01:52 Hydralazine 20 Mg/Ml Vial SLOW IVP 10 mg Q4H PRN Administration SBP > 180 and HR < 70 Dextrose/Sodium Chloride 1,000 mls @ 100 mls/hr 05/18/20 05:15 05/20/20 16:24 D5 1/2 Ns IV 1,000 mls .Q10H KARIE Administration Polyethylene Glycol/Electrolytes 4,000 ml 05/20/20 17:00 05/20/20 17:06 Golytely 4,000 Ml Bottle PO 05/20/20 23:59 4,000 ml 1700 KARIE Administration Hospitalist Exam Vitals: Vital Signs (12 hours) Temp Pulse Resp BP Pulse Ox 05/20/20 16:39 97.6 F 94 18 178/97 H 98 05/20/20 11:30 98.2 F 87 16 173/88 H 97 05/20/20 07:20 97.8 F 78 16 173/90 H 98 Weight Admit Weight 146 lb 14.4 oz Weight 146 lb 14.4 oz General Appearance: awake alert Eye: anicteric sclera ENT - other findings: Mild pharyngeal erythema, no exudates Heart: RRR Respiratory: CTAB Gastrointestinal: soft, non-tender Skin: no rashes Psychiatric: normal affect, normal behavior Hosp A/P - Plan Acute metabolic encephalopathy Improving - GI bleed -Acute blood loss anemia Atrophic gastritis on EGD colonoscopy repeat attempt tomorrow Hypertensive urgency Improved Elevated troponin Likely non-ST elevation myocardial infarction type II secondary to GI bleed CKD Stable Hepatic vein occlusion -chronic As needed lozenges for noninfectious pharyngitis.
[2020-05-20] MEDS ORDERED: Cepastat Lozenges 1 LOZ PO SCH (17:45)
[2020-05-20 18:25] LABS: Potassium 3.4 mmol/L (3.5-5.1)
[2020-05-20] MEDS: Potassium Chloride 20 MEQ TAB PO SCH ×2 (19:11→23:59)
[2020-05-20] MEDS: hydrALAZINE 20 MG/ML VIAL SLOW IVP PRN (21:36)
[2020-05-21] MEDS ORDERED: Metoprolol Tartrate 5 MG/5 ML VIAL IVP SCH (00:30)
[2020-05-21 00:44] LABS: #Basophils 0.1 thou/uL (0.0-0.2); #Lymphocytes 1.8 thou/uL (1.20-3.40); #Monocytes 0.8 thou/uL (0.11-0.59); #Neutrophils 9.4 thou/uL (1.40-6.50); %Basophils 0.4 % (0.0-1.0); %Eosinophils 0.2 % (0.0-10.0); %Lymphocytes 15.1 % (21.0-51.0); %Monocytes 6.4 % (0.0-10.0); %Neutrophils 77.9 % (42.0-75.0); Hemoglobin 10.1 g/dL (14.0-18.0); Mean Corpuscular HGB CONC 34.8 g/dL (32.0-36.0); Mean Corpuscular Hemoglobin 33.8 pg (27.0-31.0); Mean Corpuscular Volume 97.2 fL (78.0-98.0); Mean Platelet Volume 6.5 fL (7.4-10.4); Platelet Count 200 thou/uL (130-400); RBC Distribution Width 11.4 % (11.5-14.5); Red Blood Cell (RBC) Count 2.98 mill/uL (4.70-6.10); White Blood Cell (WBC) Count 12.1 thou/uL (4.8-10.8)
[2020-05-21] MEDS ORDERED: Magnesium 2 GM/50 ML 2 GM in Premix Bag 1 BAG IVPB SCH (00:45)
[2020-05-21 01:41] LABS: Anion Gap 18 mmol/L (10-20); BUN (Urea Nitrogen) 9 mg/dL (8.4-25.7); Calc. Creatinine Clearance 44 mL/min (70-130); Carbon Dioxide 20 mmol/L (23-31); Chloride 94 mmol/L (98-107); Glucose 166 mg/dL (83-110); Magnesium 1.8 mg/dL (1.6-2.6); Potassium 3.2 mmol/L (3.5-5.1); Sodium 129 mmol/L (136-145)
[2020-05-21] MEDS: Dextrose 5 %-0.45 % NaCl 1,000 ML IV SCH ×3 (04:00→22:39)
[2020-05-21] MEDS: Potassium Chloride 20 MEQ TAB PO SCH (04:39)
[2020-05-21] MEDS: Potassium Chloride 20 MEQ in Premix Bag 1 BAG IVPB SCH ×2 (07:19→11:59)
[2020-05-21] MEDS ORDERED: PROPOFOL 200 MG/20 ML VIAL ONE (10:05)
--- NOTE | 2020-05-21 11:21 | OP ---
DATE OF PROCEDURE: 05/21/2020 PACKING LINE WORKER SURGEON: None. PROCEDURE PERFORMED: Colonoscopy, diagnostic. INDICATIONS: 1. Rectal bleeding. 2. Anemia, stable. MEDICATIONS: See Anesthesia record. FINDINGS: After discussion of the risks, benefits, and alternatives of the procedure, informed consent was obtained and witnessed. Pre-endoscopic cardiopulmonary examination was satisfactory. Time-out was performed before sedation was achieved. Sedation was achieved with Anesthesia assistance in the endoscopy unit. Digital rectal exam was performed, which was unremarkable. A Pentax adult colonoscope was inserted into the anus and passed forward to the cecum in the usual fashion. The cecal base was identified by the appendiceal orifice as well as the ileocecal valve. The terminal ileum was intubated and the ileal mucosa appeared normal. The colonoscope was slowly withdrawn in a gradual and circumferential manner with careful examination of the entire colonic mucosa. The quality of the prep was adequate. There was no evidence of any old blood or active bleeding throughout the colon. The colonic mucosa appeared normal throughout the sigmoid colon, descending colon, transverse colon, ascending colon, and cecum. There was sigmoid diverticulosis. Retroflexion in the rectum demonstrated multiple medium-sized arteriovenous malformations, somewhat diffusely. These were all nonbleeding. There was a bit of mild fibrosis in the rectum as well. There was some mild scope trauma induced with retroflexion in the rectum with some minor bleeding, which resolved by the end of the procedure. No other abnormalities were demonstrated. The colonoscope was completely withdrawn and the patient allowed to recover. The patient tolerated the procedure well. There were no immediate postprocedure complications. IMPRESSION: 1. 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 2. Sigmoid diverticulosis. 3. Otherwise normal colonoscopy to the terminal ileum. RECOMMENDATIONS: 1. Advance diet. 2. Stool softener as needed. 3. Consider discontinuation of Plavix if the patient is noted to be in sinus rhythm. 4. No plan for repeat colonoscopy due to his age and absence of polyps. GI will sign off. Please call anytime with questions or concerns. Job ID: [id number]
[2020-05-21] MEDS: Amlodipine 5 MG TAB PO SCH (11:59)
[2020-05-21] MEDS ORDERED: Ketamine 50 MG/ML (10ML VIAL) ONE (12:07)
--- NOTE | 2020-05-21 15:44 | PDOC.CPN ---
- Subjective Date: 05/21/20 Time: 14:40 Interval history: No overnight events, patient had colonoscopy today. He is lying in bed, family at bedside, he states he feels weak. He denies any chest pain or shortness of breath today. - Review of Systems General: reports: fatigue Respiratory: denies: cough, congestion, shortness of breath, exercise intolerance Cardiovascular: denies: chest pain, palpitation, edema, paroxysmal nocturnal dyspnea, orthopnea Gastrointestinal: denies: nausea, vomiting, diarrhea, constipation, abd pain, GI bleeding Musculoskeletal: denies: pain, tenderness, stiffness, swelling, arthritis/arthralgias Neurological: denies: numbness, syncope, seizure, weakness - Objective Allergies/Adverse Reactions: Allergies Allergy/AdvReac Type Severity Reaction Status Date / Time No Known Drug Allergies Allergy Verified 06/29/19 03:41 Visit Medications: Current Medications Acetaminophen (Acetaminophen 325 Mg Tab) 650 mg PO Q4H PRN PRN Reason: Headache/Fever/Mild Pain (1-3) Amlodipine Besylate (Amlodipine 5 Mg Tab) 5 mg PO DAILY [facility] Last Admin: 05/21/20 11:59 Dose: 5 mg Documented by: Hydralazine HCl (Hydralazine 20 Mg/Ml Vial) 10 mg SLOW IVP Q4H PRN PRN Reason: SBP > 180 and HR < 70 Last Admin: 05/20/20 21:36 Dose: 10 mg Documented by: Dextrose/Sodium Chloride (D5 1/2 Ns) 1,000 mls @ 100 mls/hr IV .Q10H [facility] Last Admin: 05/21/20 11:59 Dose: 1,000 mls Documented by: Miscellaneous Medication (Electrolyte Replacement Protocol) 0 each FS ASDIR PRN; Protocol PRN Reason: ELECTROLYTE REPLACEMENT Nitroglycerin (Nitroglycerin 0.4 Mg Tab (25 Tab Bottle)) 0.4 mg SL Q5MIN PRN PRN Reason: Angina Sodium Chloride (Flush - Normal Saline 10 Ml Syringe) 10 ml IVF PRN PRN PRN Reason: Saline Flush Sodium Chloride (Flush - Normal Saline 10 Ml Syringe) 10 ml IVF PRN PRN PRN Reason: Saline Flush Sodium Chloride (Flush - Normal Saline 10 Ml Syringe) 10 ml IVF PRN PRN PRN Reason: Saline Flush Throat Lozenges (Cepastat Lozenges 1 Jay) 1 jay PO Q2H PRN PRN Reason: Sore Throat Vital Signs & Weight: Vital Signs Temp Pulse Resp BP Pulse Ox 05/21/20 11:36 98.4 F 77 16 137/70 95 05/21/20 07:25 97.7 F 93 18 117/58 L 95 05/21/20 04:00 97.8 F 85 18 127/60 98 Admit Weight 146 lb 14.4 oz Weight 145 lb 8 oz - Physical Exam General: alert & oriented x3, appears well, no apparent distress HEENT: mucus membranes moist Neck: no masses, no bruit Cardiac: no murmur, regular rate, regular rhythm, S1/S2 Lungs: clear to auscultation, normal breath sounds, no wheeze, rales, rhonchi Neuro: grossly intact Abdomen: active bowel sounds, soft, non-tender Extremities: no cyanosis, no clubbing, no edema, 2+ Posterior Tibial, 2+ Dorsalis Pedus Skin: clear Musculoskeletal: no pain - Labs Result Diagrams: 05/21/20 00:35 05/21/20 00:35 Troponin/CKMB CK-MB (CK-2) 5.6 ng/mL (0-6.6) 05/17/20 17:21 Troponin I 0.142 ng/mL (< 0.028) H 05/18/20 00:52 - EKG Interpretation EKG Method: Telemetry EKG: sinus rhythm - Assessment/Plan Assessment/Plan: 1. 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 2. Elevated troponins: secondary to GI bleed, no EKG changes, CP today 3. HTN: well controlled at this time, continue Amlodipine He is stable from a cardiac standpoint, we will sign off at this time. He can follow-up as an outpatient in 4-6 weeks. pt. seen and eval. by me. I agree with the TIP FINISHER. cardiac status is stable. Chest clear. RRR. I will sign off. If any cardiac issues then please page me.
--- NOTE | 2020-05-21 18:00 | PDOC.HOSPP ---
- Subjective Encounter Date: 05/21/20 Encounter Time: 09:00 Subjective: Patient seen for follow-up regarding metabolic encephalopathy. More alert today, denies chest pain or shortness of breath. - Objective Vital Signs & Weight: Vital Signs (12 hours) Temp Pulse Resp BP Pulse Ox 05/21/20 16:00 98.8 F 98 20 129/63 94 L 05/21/20 11:36 98.4 F 77 16 137/70 95 05/21/20 07:25 97.7 F 93 18 117/58 L 95 Weight Admit Weight 146 lb 14.4 oz Weight 145 lb 8 oz I&O: 05/20/20 05/21/20 05/22/20 06:59 06:59 06:59 Intake Total 1450 1680 Output Total 700 1000 Balance 750 680 Result Diagrams: 05/21/20 00:35 05/21/20 00:35 Additional Labs: I reviewed patient's labs and MAR EKG Reviewed by me: Yes (Normal sinus rhythm on telemetry) Hospitalist ROS - Review of Systems Cardiovascular: denies: chest pain, palpitations, orthopnea, paroxysmal noc. dyspnea, edema, light headedness Gastrointestinal: denies: nausea, vomiting, abdominal pain, diarrhea, constipation, melena, hematochezia - Medication Medications: Active Medications Generic Name Dose Route Start Last Admin Trade Name Freq PRN Reason Stop Dose Admin Amlodipine Besylate 5 mg 05/19/20 09:00 05/21/20 11:59 Amlodipine 5 Mg Tab PO 5 mg DAILY KARIE Administration Hydralazine HCl 10 mg 05/19/20 00:36 05/20/20 21:36 Hydralazine 20 Mg/Ml Vial SLOW IVP 10 mg Q4H PRN Administration SBP > 180 and HR < 70 Dextrose/Sodium Chloride 1,000 mls @ 100 mls/hr 05/18/20 05:15 05/21/20 11:59 D5 1/2 Ns IV 1,000 mls .Q10H KARIE Administration Hospitalist Exam Vitals: Vital Signs (12 hours) Temp Pulse Resp BP Pulse Ox 05/21/20 16:00 98.8 F 98 20 129/63 94 L 05/21/20 11:36 98.4 F 77 16 137/70 95 05/21/20 07:25 97.7 F 93 18 117/58 L 95 Weight Admit Weight 146 lb 14.4 oz Weight 145 lb 8 oz General Appearance: awake alert ENT: normocephalic atraumatic, no oropharyngeal lesions Neck: supple, no lymphadenopathy Heart: RRR Respiratory: CTAB Gastrointestinal: soft, non-distended, normal bowel sounds Skin: no rashes Psychiatric: normal affect Hosp A/P - Plan Acute metabolic encephalopathy Improving - GI bleed -Acute blood loss anemia Atrophic gastritis on EGD For colonoscopy today. Hypertensive urgency Improved Elevated troponin non-ST elevation myocardial infarction type II secondary to GI bleed CKD Stable Hepatic vein occlusion -chronic Ambulate patient.
[2020-05-22] MEDS: Amlodipine 5 MG TAB PO SCH (08:18)
[2020-05-22] MEDS: Dextrose 5 %-0.45 % NaCl 1,000 ML IV SCH (08:20)
--- NOTE | 2020-05-22 10:52 | PDOC.DS.DS ---
Provider Date of Admission: 05/17/20 21:23 Date of Discharge: 05/22/20 Admitting Provider: Lazaro Glover MD Consultations: Gastroentrology (Dr. Moe Sepulveda) Primary Care Physician: TIFFANY PEREZ MD Course Hospital Course: Discharge diagnosis: 1. GI bleed 2. Acute metabolic encephalopathy 3. Hyponatremia 4. Hypokalemia 5. COVID-19 test negative 6. Influenza test negative 7. Acute kidney injury Hospital course: Patient is a pleasant 89-year-old gentleman who was admitted to the hospital on May 17, 2019 for lower GI bleed. He also had episodes of confusion at the time of admission. He was seen by gastroenterology and cardiology services. On May 18 he underwent EGD. He was found to have small red lesions in the third portion of the duodenum, not actively bleeding. He also had diffuse atrophic gastritis, biopsies were taken. Otherwise, EGD was normal. 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 Colonoscopy was otherwise normal. His Plavix was discontinued after cardiology service approved the change. He was evaluated by therapy services and was found to be ambulating well. He is being discharged home in a stable condition. Many thanks for allowing me to participate in your patient's care. Please feel free to contact me with any questions or concerns. Discharge destination: Home Total amount of time spent coordinating this discharge: 31 minutes Resuscitation Status: 05/17/20 22:47 Resuscitation Status Routine Resuscitation Status: FULL: Full Resuscitation Lab Results: 05/21/20 00:35 05/21/20 00:35 Abnormal Lab Results - Last 48 hrs 05/20/20 17:52: Potassium 3.4 L 05/21/20 00:35: Sodium 129 L, Potassium 3.2 L, Chloride 94 L, Carbon Dioxide 20 L 05/21/20 00:35: WBC 12.1 H, RBC 2.98 L, Hgb 10.1 L, Hct 28.9 L, MCH 33.8 H, RDW 11.4 L, MPV 6.5 L, Neutrophils % 77.9 H, Lymphocytes % 15.1 L, Neutrophils # 9.4 H, Monocytes # 0.8 H Vitals: Vital Signs (12 hours) Temp Pulse Resp BP Pulse Ox 05/22/20 08:18 98 05/22/20 07:00 99.3 F 98 18 160/69 H 92 L 05/22/20 03:13 98.3 F 95 18 128/67 93 L Weight Admit Weight 146 lb 14.4 oz Weight 145 lb 11.609 oz Physical Exam: The patient was seen and examined on the day of discharge. Patient denies chest pain or shortness of breath. Vital signs are stable. S1 and S2 are heard. Lungs are clear to auscultation bilaterally. Plan Home Medications: Medication Instructions Recorded Confirmed Type Aspirin [Ecotrin Low Strength] 81 mg PO DAILY 04/23/18 05/18/20 History Nitroglycerin 0.4 mg SL Q5MIN PRN 12/11/18 05/18/20 History Amlodipine [Norvasc] 5 mg PO DAILY 05/18/20 05/18/20 History Pantoprazole [Protonix] 40 mg PO DAILY 05/18/20 05/18/20 History Allergies: No Known Drug Allergies Allergy (Verified 06/29/19 03:41) Per pt Activity:: Activity as Tolerated Nourishment:: Heart Healthy Diet Referrals: Dylan Mercado MD [Active] - 14 Days (Please call office to schedule a follow up appointment. ) Vivian Stephenson MD [Active] - 14 Days (Please call office to schedule an appointment. ) TIFFANY PEREZ II, MD [Primary Care Provider] - 7 Days (Please call office to schedule a follow up appointment. ) Disposition: HOME Quality CORE MEASURES:: N/A
[2020-05-22 11:55] VITALS: BP 118/58; TEMP 98
--- NOTE | 2020-05-25 00:15 | PQF ---
CLINICAL DOCUMENTATION CLARIFICATION FORM: Dear : Dylan King Date / Time: 05/25/2020 Please exercise your independent, professional judgment in responding to the clarification form. 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 Follow H and H. Transfuse if hemoglobin less than 7 H and P [ x ] Small red lesions in the third portion of the duodenum, not actively bleeding, doubt arteriovenous malformations. 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 Underwent EGD and found to have small red lesions in the third portion of the duodenum, not actively bleeding. Had diffuse atrophic gastritis, biopsies taken. Went on to have colonoscopym found to have multiple medium-sized nonbleeding rectal AV malformations Discharge summary Present Risk Factors Results and Location in Medical Record [ x ] Hepatic vein occlusion H and P [ x ] Chronic portal vein thrombosis Progress note 05/19/20 by Moe Stephens [ x ] Atrophic gastritis, sigmoid diverticulosis and rectal AVMs Discharge summary Present Treatments Results and Location in Medical Record [ x ] EGD repoprt 05/18/20 Operative notes [ x ] Colonoscopy report 05/21/20 Operative notes CDS/Hat Steamer Signature: [id number] Phone #: Date/Time: 05/25/2020 This is a permanent part of the Medical Record MTDD
== END 2020-05-22 13:30 | disposition home or self-care (01) | DRG 377 ==
LOC: ERS 16:32 → ERHOLD 21:23 → 2NO 05-18 14:29
PROVIDERS: ADMIT Student in an Organized Health Care Education/Training Program; ATTEND Internal Medicine
PROC: 0DB68ZX Excision of Stomach, Via Natural or Artificial Opening Endoscopic, Diagnostic (ICD-10-PCS; principal; 2020-05-18)
PROC: 0DJD8ZZ Inspection of Lower Intestinal Tract, Via Natural or Artificial Opening Endoscopic (ICD-10-PCS; 2020-05-21)
DX: K55.21 Angiodysplasia of colon with hemorrhage (principal); G93.41 Metabolic encephalopathy; I21.A1 Myocardial infarction type 2; I82.0 Budd-Chiari syndrome; I81 Portal vein thrombosis; D62 Acute posthemorrhagic anemia; E87.1 Hypo-osmolality and hyponatremia; N17.9 Acute kidney failure, unspecified; I16.0 Hypertensive urgency; I25.10 Atherosclerotic heart disease of native coronary artery without angina pectoris; I73.9 Peripheral vascular disease, unspecified; N18.9 Chronic kidney disease, unspecified; K29.40 Chronic atrophic gastritis without bleeding; K57.30 Diverticulosis of large intestine without perforation or abscess without bleeding; Z20.822 Contact with and (suspected) exposure to COVID-19; E87.6 Hypokalemia; E78.5 Hyperlipidemia, unspecified; I12.9 Hypertensive chronic kidney disease with stage 1 through stage 4 chronic kidney disease, or unspecified chronic kidney disease; N40.0 Benign prostatic hyperplasia without lower urinary tract symptoms; Q27.39 Arteriovenous malformation, other site; Z95.1 Presence of aortocoronary bypass graft; Z79.82 Long term (current) use of aspirin; Z79.02 Long term (current) use of antithrombotics/antiplatelets; Z86.73 Personal history of transient ischemic attack (TIA), and cerebral infarction without residual deficits; Z85.46 Personal history of malignant neoplasm of prostate
CPT/HCPCS: 0240U; 36415; 36416; 70450; 74177; 80048; 80053; 81003; 82105; 82140; 82550; 82553; 83735; 84484; 85014; 85018; 85025; 85610; 85730; 86850; 86900; 86901; 88305; 88312; 93005; 93010; 94760; 96365; 96366; C9113; J0360; J2704; J3475; J3480; J3490; J7050; Q9967